=== PATIENT | male | born 1960 | race Caucasian/White ===

== ENCOUNTER 2016-11-22 22:57 | Inpatient (IN) | payer OTHER ==
[2016-11-22] MEDS ORDERED: SODIUM CHLORIDE 0.9% 1,000 ML IV ONE (23:08)
[2016-11-22] MEDS ORDERED: ACETAMINOPHEN IV (For NPO) 1,000 MG in SALINE 100 100ML.BAG IVPB STA (23:08)
[2016-11-22] MEDS ORDERED: IBUPROFEN IV 600 MG in SODIUM CHLORIDE 0.9% 250 ML IV STA (23:08)
--- NOTE | 2016-11-22 23:14 | ED ---
General Adult HPI - General Chief complaint: Seizure Stated complaint: transfer-seizure Time Seen by Provider: 11/22/16 23:00 Source: EMS, RN notes reviewed Mode of arrival: EMS Limitations: no limitations - History of Present Illness Initial comments: This is a 56-year-old male presents to the emergency department as a transfer from [facility]. Patient was in status epilepticus at [facility] he received 1000 of Dilantin and 4 mg of Ativan and according to the emergency department the patient did stop seizing. They did not inform me that the patient had a fever they did not give him anything for his fever they did not investigate the fever according to what was sent to me. Patient is still a little confused and doesn't know how even got to the hospital. He is of little help in the history. No family came with the patient. I asked the patient if he had any problems with a cough recently he said no he denied any vomiting or diarrhea he denies any dysuria. - Related Data Home Medications Medication Instructions Recorded Confirmed Unable To Assess [Unable to Assess] 11/22/16 11/22/16 Allergies Allergy/AdvReac Type Severity Reaction Status Date / Time codeine AdvReac Itching Verified 07/14/15 15:01 Review of Systems ROS Statement: Those systems with pertinent positive or pertinent negative responses have been documented in the HPI. ROS Other: All systems not noted in ROS Statement are negative. Past Medical History Past Medical History: Liver Disease, Seizure Disorder Additional Past Medical History / Comment(s): 12/02/14 Pt was admiited to [facility] on 12/01/14 but was unable to provide any reliable health hx. Chain [employer] contacted by ICU staff today and was able to contact pt's primary doctor for some health hx and also was able to speak now with pt. Pt presented to [facility] ER yesterday evening via EMS with altered mental status. Originally they were called for siezure but according to their records the pt was found with Alered mental status and did not appear post dictal. The EMS record also notes that a empty bottle of ambien was found near the pt. In ER pt's conversation made no sense. Pt tested positive for benzo's in the ER. Other HX: Pt's medical record from Dr. Mccartney's office state pt has liver failure, back pain anxiety and depression and tobacco abuse disorder, and that ptis not drinking as much as he was prev., L forearm laceration repair, arthiritis in back and arms. Pt states he started having seizures 1 1/2 months ago and last had a seizure on 12/01/14. He states he has these seizures pretty much daily. History of Any Multi-Drug Resistant Organisms: None Reported Past Surgical History: Unable to Obtain Additional Past Surgical History / Comment(s): Tooth extraction with anesthesia Past Anesthesia/Blood Transfusion Reactions: Unable to Obtain Additional Past Anesthesia/Blood Transfusion Reaction / Comment(s): Pt has never had surgery. Past Psychological History: Anxiety, Depression Additional Psychological History / Comment(s): Pt has hx of taking xanax for anxiety and ambien for insomnia. Pt lives with a very good friend named Elena. Pt is normally independent. Pt states he might have been a heavy drinker when he was a teenager. Smoking Status: Current every day smoker Past Alcohol Use History: None Reported Additional Past Alcohol Use History / Comment(s): Dr. Mccartney's medical record on pt state that at his 07/06/14 office visit the pt was not drinking as much as he was prev. Past Drug Use History: None Reported - Past Family History Mother Family Medical History: Cancer Additional Family Medical History / Comment(s): Mother is . She had lung cancer. General Exam - General Exam Comments Initial Comments: GENERAL: Patient is well-developed and well-nourished. Patient is nontoxic and well- hydrated and is in no acute distress. ENT: Neck is soft and supple. No significant lymphadenopathy is noted. Oropharynx is clear. Moist mucous membranes. Neck has full range of motion without eliciting any pain. EYES: The sclera were anicteric and conjunctiva were pink and moist. Extraocular movements were intact and pupils were equal round and reactive to light. Eyelids were unremarkable. PULMONARY: Unlabored respirations. Good breath sounds bilaterally. No audible rales rhonchi or wheezing was noted. CARDIOVASCULAR: There is a regular rate and rhythm without any murmurs gallops or rubs. ABDOMEN: Soft and nontender with normal bowel sounds. No palpable organomegaly was noted. There is no palpable pulsatile mass. SKIN: Skin is clear with no lesions or rashes and otherwise unremarkable. NEUROLOGIC: Patient is alert and oriented 1. According to EMS he was unable to even tell them his name he was able to tell me his first and last name but he stated he didn't know where he was. Cranial nerves II through XII are grossly intact. Motor and sensory are also intact. Normal speech, volume and content. Symmetrical smile. MUSCULOSKELETAL: Normal extremities with adequate strength and full range of motion. LYMPHATICS: No significant lymphadenopathy is noted PSYCHIATRIC: Normal psychiatric evaluation. Limitations: no limitations Course Vital Signs 11/22/16 11/23/16 23:08 01:32 Temperature 102.2 F H 101.5 F H Pulse Rate 91 87 Respiratory 18 18 Rate Blood Pressure 136/73 128/78 O2 Sat by Pulse 93 L 94 L Oximetry Medical Decision Making - Medical Decision Making Chest x-ray shows no acute abnormality - Lab Data Result diagrams: 11/22/16 23:29 11/22/16 23:29 Lab Results 11/22/16 11/22/16 11/22/16 Range/Units 23:29 23:29 23:29 WBC 6.7 (3.8-10.6) k/uL RBC 4.00 L (4.30-5.90) m/uL Hgb 13.7 (13.0-17.5) gm/dL Hct 39.9 (39.0-53.0) % MCV 99.6 (80.0-100.0) fL MCH 34.3 (25.0-35.0) pg MCHC 34.4 (31.0-37.0) g/dL RDW 13.9 (11.5-15.5) % Plt Count 158 (150-450) k/uL Neutrophils % 88 % Lymphocytes % 4 % Monocytes % 7 % Eosinophils % 0 % Basophils % 0 % Neutrophils # 5.9 (1.3-7.7) k/uL Lymphocytes # 0.3 L (1.0-4.8) k/uL Monocytes # 0.5 (0-1.0) k/uL Eosinophils # 0.0 (0-0.7) k/uL Basophils # 0.0 (0-0.2) k/uL Sodium 138 (137-145) mmol/L Potassium 3.6 (3.5-5.1) mmol/L Chloride 96 L (98-107) mmol/L Carbon Dioxide 29 (22-30) mmol/L Anion Gap 13 mmol/L BUN 14 (9-20) mg/dL Creatinine 0.60 L (0.66-1.25) mg/dL Est GFR (MDRD) Af Amer >60 (>60 ml/min/1.73 sqM) Est GFR (MDRD) Non-Af >60 (>60 ml/min/1.73 sqM) Glucose 135 H (74-99) mg/dL Plasma Lactic Acid Otis 2.1 H (0.7-2.0) mmol/L Calcium 8.8 (8.4-10.2) mg/dL Total Bilirubin 1.3 (0.2-1.3) mg/dL AST 131 H (17-59) U/L ALT 78 H (21-72) U/L Alkaline Phosphatase 145 H (38-126) U/L Total Protein 7.2 (6.3-8.2) g/dL Albumin 4.1 (3.5-5.0) g/dL Urine Color Urine Appearance (Clear) Urine pH (5.0-8.0) Ur Specific [place] (1.001-1.035) Urine Protein (Negative) Urine Glucose (UA) (Negative) Urine Ketones (Negative) Urine Blood (Negative) Urine Nitrate (Negative) Urine Bilirubin (Negative) Urine Urobilinogen (<2.0) mg/dL Ur Leukocyte Esterase (Negative) Urine RBC (0-5) /hpf Urine WBC (0-5) /hpf Urine Mucus (None) /hpf Influenza Type A RNA (Not Detectd) Influenza Type B (PCR) (Not Detectd) 11/22/16 11/23/16 Range/Units 23:44 01:21 WBC (3.8-10.6) k/uL RBC (4.30-5.90) m/uL Hgb (13.0-17.5) gm/dL Hct (39.0-53.0) % MCV (80.0-100.0) fL MCH (25.0-35.0) pg MCHC (31.0-37.0) g/dL RDW (11.5-15.5) % Plt Count (150-450) k/uL Neutrophils % % Lymphocytes % % Monocytes % % Eosinophils % % Basophils % % Neutrophils # (1.3-7.7) k/uL Lymphocytes # (1.0-4.8) k/uL Monocytes # (0-1.0) k/uL Eosinophils # (0-0.7) k/uL Basophils # (0-0.2) k/uL Sodium (137-145) mmol/L Potassium (3.5-5.1) mmol/L Chloride (98-107) mmol/L Carbon Dioxide (22-30) mmol/L Anion Gap mmol/L BUN (9-20) mg/dL Creatinine (0.66-1.25) mg/dL Est GFR (MDRD) Af Amer (>60 ml/min/1.73 sqM) Est GFR (MDRD) Non-Af (>60 ml/min/1.73 sqM) Glucose (74-99) mg/dL Plasma Lactic Acid Otis (0.7-2.0) mmol/L Calcium (8.4-10.2) mg/dL Total Bilirubin (0.2-1.3) mg/dL AST (17-59) U/L ALT (21-72) U/L Alkaline Phosphatase (38-126) U/L Total Protein (6.3-8.2) g/dL Albumin (3.5-5.0) g/dL Urine Color Yellow Urine Appearance Clear (Clear) Urine pH 8.0 (5.0-8.0) Ur Specific [place] 1.025 (1.001-1.035) Urine Protein 1+ H (Negative) Urine Glucose (UA) Negative (Negative) Urine Ketones 1+ H (Negative) Urine Blood Negative (Negative) Urine Nitrate Negative (Negative) Urine Bilirubin Negative (Negative) Urine Urobilinogen 6.0 (<2.0) mg/dL Ur Leukocyte Esterase Negative (Negative) Urine RBC 1 (0-5) /hpf Urine WBC 1 (0-5) /hpf Urine Mucus Rare H (None) /hpf Influenza Type A RNA Not Detected (Not Detectd) Influenza Type B (PCR) Not Detected (Not Detectd) Disposition Clinical Impression: Status epilepticus Disposition: ADMITTED IP TO THIS HOSP Referrals: Chas Aguero MD [Primary Care Provider] - 1-2 days Time of Disposition: 01:56
[2016-11-22 23:45] LABS: Basophils % (A) 0 %; CH 34.5; CHCM 34.8; Eosinophils % (A) 0 %; HCT 39.9 % (39.0-53.0); HDW 2.46; HGB 13.7 gm/dL (13.0-17.5); Luc # (Auto) 0.07; Luc % (Auto) 1; Lymphocytes # (A) 0.3 k/uL (1.0-4.8); Lymphocytes % (A) 4 %; MCH 34.3 pg (25.0-35.0); MCHC 34.4 g/dL (31.0-37.0); MCV 99.6 fL (80.0-100.0); Mean Platelet Volume 8.6; Monocytes # (A) 0.5 k/uL (0-1.0); Monocytes % (A) 7 %; Neutrophils # (A) 5.9 k/uL (1.3-7.7); Neutrophils % (A) 88 %; RDW 13.9 % (11.5-15.5); WBC 6.7 k/uL (3.8-10.6); WBC (Perox) 6.81
[2016-11-23 00:02] LABS: ALT 78 U/L (21-72); AST 131 U/L (17-59); Alkaline Phosphatase 145 U/L (38-126); Anion Gap 13 mmol/L; Blood Urea Nitrogen 14 mg/dL (9-20); Calcium 8.8 mg/dL (8.4-10.2); Carbon Dioxide 29 mmol/L (22-30); Chloride 96 mmol/L (98-107); Glucose 135 mg/dL (74-99); Non-African American GFR(MDRD) >60 (>60 ml/min/1.73 sqM); Potassium 3.6 mmol/L (3.5-5.1); Sodium 138 mmol/L (137-145); Total Bilirubin 1.3 mg/dL (0.2-1.3); Total Protein 7.2 g/dL (6.3-8.2)
--- NOTE | 2016-11-23 00:46 | XR ---
EXAM: XR Chest, 2 Views. CLINICAL HISTORY: Reason: Difficulty breathing TECHNIQUE: Frontal and lateral views of the chest. COMPARISON: 07/14/15 chest radiographs. FINDINGS: Lungs: Stable. No consolidation. Pleural spaces: Unremarkable. No pneumothorax. Heart: Unremarkable. No cardiomegaly. Mediastinum: Unremarkable. Bones: Unremarkable. No acute fracture. Slight leftward curvature may in part be positional. IMPRESSION: No new acute process is seen within the chest, or source of the patient's symptoms detected.
[2016-11-23 01:44] LABS: Appearance,Urine Clear (Clear); Bilirubin,Urine Negative (Negative); Glucose,Urine (UA) Negative (Negative); Ketones,Urine 1+ (Negative); Leukocyte Esterase,Urine Negative (Negative); Mucus,Urine Rare /hpf; Nitrite,Urine Negative (Negative); Particle Count 2056; Protein,Urine 1+ (Negative); RBC,Urine 1 /hpf (0-5); Specific Gravity,Urine 1.025 (1.001-1.035); UA Billing (MACRO vs. MICRO) MICRO; WBC,Urine 1 /hpf (0-5)
[2016-11-23] MEDS ORDERED: SODIUM CHLORIDE 0.9% 1,000 ML IV ONE (01:56)
[2016-11-23] MEDS: ACETAMINOPHEN TAB 325 MG TAB PO PRN ×2 (03:19→08:44)
[2016-11-23] MEDS ORDERED: PHENYTOIN SODIUM EXTENDED 100 MG CAP PO SCH (09:00)
--- NOTE | 2016-11-23 09:25 | P.GSCN ---
History of Present Illness Consult date: 11/23/16 Reason for Consult: Intractable nausea and vomiting History of present illness: Patient is a somewhat poor historian who presents to the hospital with complaints of intractable nausea and vomiting for the last 6 months. Says that he vomits 1-2 times daily. Occasional episodes of diarrhea as well. Describes mild upper abdominal discomfort. Denies alcohol or drug related use. He came to the hospital with fevers as high as 102.2. White blood cell count is normal. Liver enzymes are slightly elevated. Denies rectal bleeding or melena. No hematemesis. No prior endoscopy. No recent travel. No sick contacts. Lactic acid was elevated but normalized today. Abdominal ultrasound has been ordered. Chest x-ray was normal. Per the chart the patient probably does have a history of alcohol use and a history of liver abnormalities. Review of Systems The patient denies any acute changes in his vision or hearing, no dysphagia or odynophagia, no chest pain or shortness of breath, no dysuria or hematuria, no headache, no runny nose, no rectal bleeding or melena, no unexplained weight loss Past Medical History Past Medical History: Liver Disease, Seizure Disorder Additional Past Medical History / Comment(s): 12/02/14 Pt was admiited to [facility] on 12/01/14 but was unable to provide any reliable health hx. Program Director/[employer] contacted by ICU staff today and was able to contact pt's primary doctor for some health hx and also was able to speak now with pt. Pt presented to [facility] ER yesterday evening via EMS with altered mental status. [facility] but according to their records the pt was found with Alered mental status and did not appear post dictal. The EMS record also notes that a empty bottle of ambien was found near the pt. In ER pt's conversation made no sense. Pt tested positive for benzo's in the ER. Other HX: Pt's medical record from Dr. Mccartney's office state pt has liver failure, back pain anxiety and depression and tobacco abuse disorder, and that ptis not drinking as much as he was prev., L forearm laceration repair, arthiritis in back and arms. Pt states he started having seizures 1 1/2 months ago and last had a seizure on 12/01/14. He states he has these seizures pretty much daily. History of Any Multi-Drug Resistant Organisms: None Reported Past Surgical History: Unable to Obtain Additional Past Surgical History / Comment(s): Tooth extraction with anesthesia Past Anesthesia/Blood Transfusion Reactions: Unable to Obtain Additional Past Anesthesia/Blood Transfusion Reaction / Comm: Pt has never had surgery. Past Psychological History: Anxiety, Depression Additional Psychological History / Comment(s): Pt has hx of taking xanax for anxiety and ambien for insomnia. Pt lives with a very good friend named Elena. Pt is normally independent. Pt states he might have been a heavy drinker when he was a teenager. Smoking Status: Current every day smoker Past Alcohol Use History: None Reported Additional Past Alcohol Use History / Comment(s): Dr. Mccartney's medical record on pt state that at his 07/06/14 office visit the pt was not drinking as much as he was prev. Past Drug Use History: None Reported - Past Family History Mother Family Medical History: Cancer Additional Family Medical History / Comment(s): Mother is . She had lung cancer. Medications and Allergies Home Medications Medication Instructions Recorded Confirmed Type Unable To Assess [Unable to Assess] 11/22/16 11/22/16 History Allergies Allergy/AdvReac Type Severity Reaction Status Date / Time codeine AdvReac Itching Verified 07/14/15 15:01 Surgical - Exam Vital Signs Temp Pulse Resp BP Pulse Ox 102.2 F H 91 18 136/73 93 L 11/22/16 23:08 11/22/16 23:08 11/22/16 23:08 11/22/16 23:08 11/22/16 23:08 Physical exam: General: Unkempt appearing elderly male who appears older than his stated age HEENT: Normocephalic, sclerae nonicteric Abdomen: Mild upper abdominal tenderness Extremities: No edema Neuro: Alert and oriented Results - Labs 11/22/16 23:29 11/22/16 23:29 Abnormal Lab Results - Last 24 Hours (Table) 11/23/16 Range/Units 08:18 Plasma Lactic Acid Otis 0.6 L (0.7-2.0) mmol/L Assessment and Plan (1) Abdominal pain Narrative/Plan: Agree with abdominal ultrasound already ordered. We'll review that study. Based on that may consider CAT scan abdomen and pelvis. Check labs tomorrow. Status: Acute
--- NOTE | 2016-11-23 09:44 | US ---
EXAMINATION TYPE: US abdomen complete DATE OF EXAM: 11/23/2016 9:22 AM COMPARISON: 12/02/2014 CLINICAL HISTORY: 56-year-old male elevated LFTs. Intermittent N/V x 2 months. TECHNIQUE: Multiple sonographic images of the abdomen were obtained. FINDINGS: Liver Length: 19.7 cm Gallbladder Wall: 0.2 cm CBD: 0.4 cm Spleen: Unable to assess. Right Kidney: 11.3 x 4.6 x 5.6 cm Left Kidney: 11.2 x 5.4 x 5.3 cm Pancreas: obscured by overlying bowel gas Liver: enlarged at 19.7cm, heterogeneous, echogenic, and attenuating. This secondarily limits assess ment for focal lesion. Gallbladder: No abnormal gallbladder distention, wall thickening, pericholecystic fluid, or shadowin g calculi. Evidence for sonographic Major's sign: no CBD: visualized portions within normal limits, limited by overlying bowel gas Spleen: obscured by overlying bowel gas Right Kidney: No hydronephrosis. Left Kidney: visualized portions within normal limits without hydronephrosis, limited by rib shadowi ng and overlying bowel gas Upper IVC: Not well seen. Abd Aorta: visualized portions within normal limits, limited by overlying bowel gas IMPRESSION: 1. Hepatomegaly with marked heterogeneous and attenuating liver parenchyma. Findings suggest hepatic steatosis or other nonspecific hepatocellular disease. Correlate with LFTs, profile, and patient risk factors. The overall heterogeneity has increased from 12/02/2014. 2. Unable to assess the pancreas or spleen due to bowel gas shadowing.
[2016-11-23 10:26] LABS: Amylase <30 U/L (30-110)
[2016-11-23 12:38] LABS: Hemoglobin A1C 5.7 % (4.2-6.1)
--- NOTE | 2016-11-23 13:19 | P.CNNES ---
History of Present Illness Consult date: 11/23/16 Requesting physician: Chas Aguero Reason for Consult: Seizures History of Present Illness: Patient is a 56-year-old male who is being evaluated today 11/23/2016 by the neurology service per the request of Dr. Aguero for seizures. Patient is a poor historian most of history was obtained from staff, chart, and some from patient. Patient reportedly presented to [facility] in status epilepticus. Reportedly patient was given 1000 mg of Dilantin and 4 mg of Ativan and the patient did stop seizing. Patient was then placed on Dilantin 100 mg 3 times a day. Patient remains confused and does not know how he arrived at the hospital. Patient does complain of abdominal pain which has been going on for months. GI consult was obtained. During my interview, patient does state he was diagnosed with seizure disorder less than a year ago. Patient states he was on Dilantin at home and decided to take himself off the medication. Patient cannot give me a reason that he took himself off. I did confirm with patient pharmacy that he was taking Dilantin 200 mg twice a day in the home setting. Patient was febrile with the temperature of 102.2 on admission. Blood pressure 136/73, pulse 91, and respiratory rate 18. Although patient was febrile WBCs were 6.7, hemoglobin 13.7, hematocrit 39.9. Liver enzymes were elevated as well. At the time of my evaluation, patient's resting comfortably in bed and appears to be in no acute distress. No seizures have been reported since admission. Review of Systems REVIEW OF SYSTEMS: Otherwise unremarkable and noncontributory. Past Medical History Past Medical History: Liver Disease, Seizure Disorder Additional Past Medical History / Comment(s): 12/02/14 Pt was admiited to [facility] on 12/01/14 but was unable to provide any reliable health hx. [employer] contacted by ICU staff today and was able to contact pt's primary doctor for some health hx and also was able to speak now with pt. Pt presented to [facility] ER yesterday evening via EMS with altered mental status. Originally they were called for siezure but according to their records the pt was found with Alered mental status and did not appear post dictal. The EMS record also notes that a empty bottle of ambien was found near the pt. In ER pt's conversation made no sense. Pt tested positive for benzo's in the ER. Other HX: Pt's medical record from Dr. Mccartney's office state pt has liver failure, back pain anxiety and depression and tobacco abuse disorder, and that ptis not drinking as much as he was prev., L forearm laceration repair, arthiritis in back and arms. Pt states he started having seizures 1 1/2 months ago and last had a seizure on 12/01/14. He states he has these seizures pretty much daily. History of Any Multi-Drug Resistant Organisms: None Reported Past Surgical History: Unable to Obtain Additional Past Surgical History / Comment(s): Tooth extraction with anesthesia Past Anesthesia/Blood Transfusion Reactions: Unable to Obtain Additional Past Anesthesia/Blood Transfusion Reaction / Comment(s): Pt has never had surgery. Past Psychological History: Anxiety, Depression Additional Psychological History / Comment(s): Pt has hx of taking xanax for anxiety and ambien for insomnia. Pt lives with a very good friend named Elena. Pt is normally independent. Pt states he might have been a heavy drinker when he was a teenager. Smoking Status: Current every day smoker Past Alcohol Use History: None Reported Additional Past Alcohol Use History / Comment(s): Dr. Mccartney's medical record on pt state that at his 07/06/14 office visit the pt was not drinking as much as he was prev. Past Drug Use History: None Reported - Past Family History Mother Family Medical History: Cancer Additional Family Medical History / Comment(s): Mother is . She had lung cancer. Medications and Allergies Home Medications Medication Instructions Recorded Confirmed Type No Known Home Medications [No 11/23/16 11/23/16 History Known Home Medications] Allergies Allergy/AdvReac Type Severity Reaction Status Date / Time codeine AdvReac Itching Verified 11/23/16 11:05 Physical Examination - Vital Signs Vital Signs: Vital Signs Temp Pulse Pulse Resp BP Pulse Ox 11/23/16 07:00 100.7 F H 83 16 117/67 92 L 11/23/16 04:08 99.4 F 11/23/16 03:12 100.8 F H 86 18 128/94 93 L 11/23/16 02:08 100.7 F H Intake and Output 11/22/16 11/23/16 11/23/16 22:59 06:59 14:59 Intake Total 1600 Balance 1600 Intake: Amount of Fluid Infused ( 1600 ml) Other: Voiding Method Urinal Urinal # Voids 1 1 # Bowel Movements 1 1 PHYSICAL EXAM: GENERAL APPEARANCE: Patient is a well-developed, male who appears to be in no acute distress. HEENT: Normocephalic, atraumatic, no facial asymmetry is seen. Neck is supple with no masses felt. CARDIOVASCULAR: Regular rate and rhythm. ABDOMEN: Nontender, nondistended. EXTREMITIES: Show no edema or clubbing. NEUROLOGICAL EXAM: Patient is awake, alert, and oriented 3. Speech and language are normal. Strength is full in all 4 extremities. Sensory exam to light touch is normal in all 4 extremities. No tremors or seizure-like activity is noted. Results - Laboratory Findings CBC and BMP: 11/22/16 23:29 11/22/16 23:29 Abnormal Lab Findings: Abnormal Labs 11/23/16 11/23/16 08:18 08:18 Plasma Lactic Acid Otis 0.6 L Amylase <30 L Assessment and Plan (1) Abdominal pain Status: Acute (2) Status epilepticus Status: Acute Plan: Impression: 1. Seizure disorder 2. Abdominal pain 3. Reported history of alcohol abuse 4. Noncompliant with medication Recommendations: It appears patient was recently diagnosed with seizure disorder. Patient believes last seizure was approximately a year ago. Patient had been taking Dilantin the home setting and decided to take himself off. I will place him back on last ordered Dilantin dose which was confirmed with his pharmacy. Patient will be started on Dilantin 200 mg twice a day. I will order an EEG. I will update a CT of the brain. Continue seizure precautions. Continue neurological checks. Continue current medical management. Patient was advised that under state law he cannot drive for a period of 6 months following seizure. I will continue to follow with you. Further recommendations to follow. Thank you for allowing me to participate in the care of your patient. Feel free to call with any questions or concerns. I performed an examination of the patient and discussed the management with the SURGERY TEACHER. I have reviewed the SURGERY TEACHER notes and agree with the findings and plan of care.
--- NOTE | 2016-11-23 14:08 | CT ---
EXAMINATION TYPE: CT brain wo con DATE OF EXAM: 11/23/2016 1:51 PM COMPARISON: 07/14/2015 HISTORY: 56-year-old male complains of seizure yesterday and some dizziness today. TECHNIQUE: Examination was done in axial plane without intravenous contrast. Coronal and sagittal r econstructions performed. CT DLP: 1061 mGycm Automated exposure control for dose reduction was used. FINDINGS: There is no evidence of acute intracranial hemorrhage, acute ischemic changes, mass, mass-effect, or extra-axial fluid collection. There is no effacement of cerebral sulci or basal subarachnoid cister ns. There is no hydrocephalus. There is no midline shift. Mcgrath-white matter distinction is preserv ed. Paranasal sinuses and mastoid air cells are well pneumatized. Orbits and globes are intact. IMPRESSION: No acute intracranial abnormality seen.
--- NOTE | 2016-11-23 17:07 | P.CONS ---
History of Present Illness - Reason for Consult Consult date: 11/23/16 - Chief Complaint Seizure - History of Present Illness 56-year-old male who presents to [facility] is an outside transfer due to his seizures and concerns to status epilepticus. He was loaded with Dilantin and Ativan. In that had improvement. Upon approach the patient is not actively seizing. He however is a poor historian. Apparently he was having some difficulties with abdominal pain. It may not been taking his medications at home. It admission he did have difficulty with fever with at the infectious diseases consultation is requested. There was evidence of elevated liver function tests also. Upon questioning the patient does not have many complaints at this point in time. But again he is a poor historian. Review of Systems ROS unobtainable: due to mental status (But currently denies headache, denies shortness of breath or cough, has had some abdominal pain and denies nausea or emesis or diarrhea.) Past Medical History Past Medical History: Liver Disease, Seizure Disorder Additional Past Medical History / Comment(s): 12/02/14 Pt was admiited to [facility] on 12/01/14 but was unable to provide any reliable health hx. Anthropometrist contacted by ICU staff today and was able to contact pt's primary doctor for some health hx and also was able to speak now with pt. Pt presented to [facility] ER yesterday evening via EMS with altered mental status. Originally they were called for siezure but according to their records the pt was found with Alered mental status and did not appear post dictal. The EMS record also notes that a empty bottle of ambien was found near the pt. In ER pt's conversation made no sense. Pt tested positive for benzo's in the ER. Other HX: Pt's medical record from Dr. Mccartney's office state pt has liver failure, back pain anxiety and depression and tobacco abuse disorder, and that ptis not drinking as much as he was prev., L forearm laceration repair, arthiritis in back and arms. Pt states he started having seizures 1 1/2 months ago and last had a seizure on 12/01/14. He states he has these seizures pretty much daily. History of Any Multi-Drug Resistant Organisms: None Reported Past Surgical History: Unable to Obtain Additional Past Surgical History / Comment(s): Tooth extraction with anesthesia Past Anesthesia/Blood Transfusion Reactions: Unable to Obtain Additional Past Anesthesia/Blood Transfusion Reaction / Comm: Pt has never had surgery. Past Psychological History: Anxiety, Depression Additional Psychological History / Comment(s): Pt has hx of taking xanax for anxiety and ambien for insomnia. Pt lives with a very good friend named Elena. Pt is normally independent. Pt states he might have been a heavy drinker when he was a teenager. Positive tobacco use. Did not relate to current recreational drug use. No experience. Does not work outside of the home. Did not confirm animal exposures Smoking Status: Current every day smoker Past Alcohol Use History: None Reported Additional Past Alcohol Use History / Comment(s): Dr. Mccartney's medical record on pt state that at his 07/06/14 office visit the pt was not drinking as much as he was prev. Past Drug Use History: None Reported - Past Family History Mother Family Medical History: Cancer Additional Family Medical History / Comment(s): Mother is . She had lung cancer. Medications and Allergies Home Medications and Allergies Comment(s): Current Medications Acetaminophen (Tylenol Tab) 650 mg PO Q6HR PRN PRN Reason: Fever and/ or Pain Last Admin: 11/23/16 08:44 Dose: 650 mg Phenytoin Sodium (Dilantin) 200 mg PO BID EMILIE Home Medications Medication Instructions Recorded Confirmed Type No Known Home Medications [No 11/23/16 11/23/16 History Known Home Medications] Allergies Allergy/AdvReac Type Severity Reaction Status Date / Time codeine AdvReac Itching Verified 11/23/16 11:05 Physical Exam Vitals: Vital Signs Temp Pulse Pulse Resp BP Pulse Ox 11/23/16 15:00 99.8 F H 69 16 120/83 94 L 11/23/16 07:00 100.7 F H 83 16 117/67 92 L 11/23/16 04:08 99.4 F 11/23/16 03:12 100.8 F H 86 18 128/94 93 L 11/23/16 02:08 100.7 F H Intake and Output 11/23/16 11/23/16 11/23/16 06:59 14:59 22:59 Intake Total 1600 Balance 1600 Intake: Amount of Fluid Infused ( 1600 ml) Other: Voiding Method Urinal Urinal Urinal # Voids 1 2 # Bowel Movements 1 3 56-year-old male appears about his stated age. Thin build. Temperature 102.2 at admission. HEENT: Anicteric conjunctiva are pink and moist nasal mucosa grossly intact without significant lesions, there is no thrush. Poor dentition Neck: The neck is supple without significant lymphadenopathy or thyromegaly. Lungs: Symmetrical air entry with expiratory wheezes but no anyi bronchial sounds Heart: Regular rate and rhythm with an audible S1-S2, no S3 no S4. There is no significant murmur click or rub, PMI was nondisplaced. Abdomen: Positive bowel sounds soft and nontender without palpable masses or organomegaly. There was no guarding or rebound. Extremities: The upper extremities have excellent pulses they are symmetric, no significant petechiae or telangiectasia. No splinter hemorrhages were noted. The lower extremities are free from significant edema. The peripheral pulses were 2+ and symmetric. Neuro: Awake alert oriented to person and place. Followed simple commands. The upper and lower extremities on command. Results CBC & Chem 7: 11/22/16 23:29 11/22/16 23: Labs: Abnormal Lab Results - Last 24 Hours (Table) 11/23/16 11/23/16 Range/Units 08:18 08:18 Plasma Lactic Acid Otis 0.6 L (0.7-2.0) mmol/L Amylase <30 L (30-110) U/L Laboratory Results WBC 6.7 k/uL (3.8-10.6) 11/22/16: RBC 4.00 m/uL (4.30-5.90) L 11/22/16: Hgb 13.7 gm/dL (13.0-17.5) 11/22/16 23: Hct 39.9 % (39.0-53.0) 11/22/16 23: MCV 99.6 fL (80.0-100.0) 11/22/16: MCH 34.3 pg (25.0-35.0) 11/22/16: MCHC 34.4 g/dL (31.0-37.0) 11/22/16 23: RDW 13.9 % (11.5-15.5) 11/22/16: Plt Count 158 k/uL (150-450) 11/22/16 23:29 Neutrophils % 88 % 11/22/16 23: Lymphocytes % 4 % 11/22/16 23: Monocytes % 7 % 11/22/16 23: Eosinophils % 0 % 11/22/16 23: Basophils % 0 % 11/22/16 23:29 Neutrophils # 5.9 k/uL (1.3-7.7) 11/22/16 23: Lymphocytes # 0.3 k/uL (1.0-4.8) L 11/22/16 23: Monocytes # 0.5 k/uL (0-1.0) 11/22/16 23: Eosinophils # 0.0 k/uL (0-0.7) 11/22/16: Basophils # 0.0 k/uL (0-0.2) 11/22/16 23: Sodium 138 mmol/L (137-145) 11/22/16 23: Potassium 3.6 mmol/L (3.5-5.1) 11/22/16 23: Chloride 96 mmol/L (98-107) L 11/22/16 23: Carbon Dioxide 29 mmol/L (22-30) 11/22/16 23:29 Anion Gap 13 mmol/L 11/22/16 23:29 BUN 14 mg/dL (9-20) 11/22/16 23: Creatinine 0.60 mg/dL (0.66-1.25) L 11/22/16 23:29 Est GFR (MDRD) Af Amer >60 (>60 ml/min/1.73 sqM) 11/22/16 23:29 Est GFR (MDRD) Non-Af >60 (>60 ml/min/1.73 sqM) 11/22/16 23:29 Glucose 135 mg/dL (74-99) H 11/22/16 23:[address] Glu mg/dL 117 mg/dL 11/23/16 08:18 Hemoglobin A1c 5.7 % (4.2-6.1) 11/23/16 08:18 Plasma Lactic Acid Otis 0.6 mmol/L (0.7-2.0) L 11/23/16 08:18 Calcium 8.8 mg/dL (8.4-10.2) 11/22/16 23:29 Total Bilirubin 1.3 mg/dL (0.2-1.3) 11/22/16 23:29 AST 131 U/L (17-59) H 11/22/16 23:29 ALT 78 U/L (21-72) H 11/22/16 23:29 Alkaline Phosphatase 145 U/L (38-126) H 11/22/16 23:29 Total Protein 7.2 g/dL (6.3-8.2) 11/22/16 23:29 Albumin 4.1 g/dL (3.5-5.0) 11/22/16 23:29 Amylase <30 U/L (30-110) L 11/23/16 08:18 Lipase 116 U/L (23-300) 11/23/16 08:18 Urine Color Yellow 11/23/16 01:21 Urine Appearance Clear (Clear) 11/23/16 01:21 Urine pH 8.0 (5.0-8.0) 11/23/16 01:21 Ur Specific [place] 1.025 (1.001-1.035) 11/23/16 01:21 Urine Protein 1+ (Negative) H 11/23/16 01:21 Urine Glucose (UA) Negative (Negative) 11/23/16 01:21 Urine Ketones 1+ (Negative) H 11/23/16 01:21 Urine Blood Negative (Negative) 11/23/16 01:21 Urine Nitrate Negative (Negative) 11/23/16 01:21 Urine Bilirubin Negative (Negative) 11/23/16 01:21 Urine Urobilinogen 6.0 mg/dL (<2.0) 11/23/16 01:21 Ur Leukocyte Esterase Negative (Negative) 11/23/16 01:21 Urine RBC 1 /hpf (0-5) 11/23/16 01:21 Urine WBC 1 /hpf (0-5) 11/23/16 01:21 Urine Mucus Rare /hpf (None) H 11/23/16 01:21 Influenza Type A RNA Not Detected (Not Detectd) 11/22/16 23:44 Influenza Type B (PCR) Not Detected (Not Detectd) 11/22/16 23:44 Assessment and Plan (1) Fever Narrative/Plan: 56-year-old male with a history of a seizure disorder. Potential alcohol abuse presents to our facility with evidence of seizure. This is no undercontrol with loading of Dilantin and some Ativan. The patient does have a fever that has now resolved. Fever is not an unusual manifestation of seizure. Patient has been seen by surgery because of complaints of abdominal pain. The patient does have evidence of an abnormal liver on his ultrasound. He has changed further since his November 2014 exam. Surgical evaluation is a curb with no plans for surgical intervention. We'll obtain baseline hepatitis status. At this time does not appear to have underlying infection that is bacterial in nature and would not need antibiotic therapy If he has further fever then further workup will be initiated at that time. Follow-up liver function tests are requested. Status: Acute (2) Seizure Status: Acute
[2016-11-23] MEDS ORDERED: LOPERAMIDE 2 MG CAP PO PRN (19:46)
[2016-11-23] MEDS: PHENYTOIN SODIUM EXTENDED 100 MG CAP PO SCH (20:11)
[2016-11-23] MEDS: LORazepam 2 MG/ML SYRINGE IV PRN (20:38)
[2016-11-23 20:43] LABS: Hepatitis B Surface Ag Index 0.06
[2016-11-23 20:48] LABS: Hepatitis B Core IgM Index 0.04
[2016-11-23 21:00] LABS: Hepatitis C Virus IgG Index 0.01
[2016-11-23 21:02] LABS: Hepatitis C Virus IgG Ab Negative (Negative)
[2016-11-24] MEDS: LORazepam 2 MG/ML SYRINGE IV PRN ×2 (03:21→08:16)
[2016-11-24 07:51] LABS: Basophils % (A) 0 %; CH 35.1; CHCM 34.9; Eosinophils # (A) 0.2 k/uL (0-0.7); Eosinophils % (A) 4 %; HCT 39.4 % (39.0-53.0); HDW 2.61; HGB 13.7 gm/dL (13.0-17.5); Luc # (Auto) 0.22; Luc % (Auto) 4; Lymphocytes # (A) 1.3 k/uL (1.0-4.8); Lymphocytes % (A) 21 %; MCH 35.1 pg (25.0-35.0); MCHC 34.7 g/dL (31.0-37.0); MCV 101.1 fL (80.0-100.0); Macrocytosis Slight; Mean Platelet Volume 8.9; Monocytes # (A) 0.5 k/uL (0-1.0); Monocytes % (A) 8 %; Neutrophils # (A) 3.8 k/uL (1.3-7.7); Neutrophils % (A) 63 %; RDW 13.5 % (11.5-15.5); WBC (Perox) 5.96
[2016-11-24 08:02] LABS: ALT 97 U/L (21-72); AST 194 U/L (17-59); Alkaline Phosphatase 146 U/L (38-126); Anion Gap 14 mmol/L; Blood Urea Nitrogen 12 mg/dL (9-20); Calcium 9.3 mg/dL (8.4-10.2); Carbon Dioxide 25 mmol/L (22-30); Chloride 98 mmol/L (98-107); Glucose 120 mg/dL (74-99); Non-African American GFR(MDRD) >60 (>60 ml/min/1.73 sqM); Potassium 3.3 mmol/L (3.5-5.1); Sodium 137 mmol/L (137-145); Total Bilirubin 1.2 mg/dL (0.2-1.3); Total Protein 7.2 g/dL (6.3-8.2)
[2016-11-24] MEDS: PHENYTOIN SODIUM EXTENDED 100 MG CAP PO SCH ×2 (08:17→21:01)
[2016-11-24] MEDS ORDERED: LORazepam 2 MG/ML SYRINGE IV PRN ×3 (10:17)
[2016-11-24] MEDS ORDERED: THIAMINE 100 MG/ML 2 ML VIAL IM STA (10:17)
[2016-11-24] MEDS ORDERED: RX INFO: IV CONTRAST WAS GIVEN 1 EACH MISC MISCELLANE PRN (10:27)
--- NOTE | 2016-11-24 10:29 | P.PN ---
Subjective Principal diagnosis: Abdominal pain Patient had low-grade fever last night 99.2. Liver enzymes remain slightly elevated. White blood cell count normal. Ultrasound shows no gallbladder disease. Still having loose stools and occasional vomiting. Objective - Vital Signs Vital signs: Vital Signs Temp 98.7 F 11/24/16 07:00 Pulse 72 11/24/16 07:00 Resp 16 11/24/16 07:00 BP 149/88 11/24/16 07:00 Pulse Ox 96 11/24/16 07:00 Intake & Output 11/23/16 11/24/16 11/24/16 18:59 06:59 18:59 Other: Voiding Method Urinal Urinal Urinal # Voids 2 2 # Bowel Movements 3 3 - Exam Abdomen: Soft, nondistended, mild upper abdominal tenderness - Labs CBC & Chem 7: 11/24/16 07:17 11/24/16 07:17 Labs: Abnormal Lab Results - Last 24 Hours (Table) 11/24/16 11/24/16 Range/Units 07:17 07:17 RBC 3.90 L (4.30-5.90) m/uL MCV 101.1 H (80.0-100.0) fL MCH 35.1 H (25.0-35.0) pg Potassium 3.3 L (3.5-5.1) mmol/L Glucose 120 H (74-99) mg/dL AST 194 H (17-59) U/L ALT 97 H (21-72) U/L Alkaline Phosphatase 146 H (38-126) U/L Assessment and Plan (1) Abdominal pain Narrative/Plan: Ultrasound reviewed. Will check CT abdomen and pelvis. Follow lab work. Status: Acute
[2016-11-24] MEDS: IOHEXOL 350 MG/ML 25 ML BOTTLE (ORAL USE) PO PRN ×2 (10:45→11:40)
--- NOTE | 2016-11-24 12:21 | P.PN ---
Subjective Principal diagnosis: Patient is a pleasant 56-year-old male who is being followed by the neurology service for seizures. Patient is a poor historian and information has been obtained from staff, chart, and some from patient. Reportedly patient had seizure activity and was taken to another facility and stabilized. Patient was then transferred here for further medical management. Patient also has history of abdominal pain with frequent nausea and vomiting. GIs been consulted. Patient presented with fever and infectious disease has also been consulted. Reportedly, patient has history of alcohol abuse. Patient is more confused and somewhat agitated and combative today. No seizure activity since admission. Patient continues on Dilantin 200 mg twice a day. EEG has not been done yet. At the time of my evaluation, patient is agitated and staff reports patient has been placed on withdrawal protocol. Objective - Vital Signs Vital signs: Vital Signs Temp 98.7 F 11/24/16 07:00 Pulse 72 11/24/16 07:00 Resp 16 11/24/16 07:00 BP 149/88 11/24/16 07:00 Pulse Ox 96 11/24/16 07:00 Intake & Output 11/23/16 11/24/16 11/24/16 18:59 06:59 18:59 Other: Voiding Method Urinal Urinal Urinal # Voids 2 2 # Bowel Movements 3 3 - Exam PHYSICAL EXAM: GENERAL APPEARANCE: Patient is a well-developed, male who appears to be in no acute distress. HEENT: Normocephalic, atraumatic, no facial asymmetry is seen. Neck is supple with no masses felt. CARDIOVASCULAR: Regular rate and rhythm. ABDOMEN: Nontender, nondistended. EXTREMITIES: Show no edema or clubbing. NEUROLOGICAL EXAM: Patient is awake, alert, and oriented 3. Speech and language are normal. Strength is full in all 4 extremities. Sensory exam to light touch is normal in all 4 extremities. No facial asymmetry is seen on cranial nerve testing. No tremors or seizure-like activity is noted. - Labs CBC & Chem 7: 11/24/16 07:11/24/16 07:17 Labs: Abnormal Lab Results - Last 24 Hours (Table) 11/24/16 11/24/16 Range/Units : 07:17 RBC 3.90 L (4.30-5.90) m/uL MCV 101.1 H (80.0-100.0) fL MCH 35.1 H (25.0-35.0) pg Potassium 3.3 L (3.5-5.1) mmol/L Glucose 120 H (74-99) mg/dL AST 194 H (17-59) U/L ALT 97 H (21-72) U/L Alkaline Phosphatase 146 H (38-126) U/L Assessment and Plan (1) Abdominal pain Status: Acute (2) Status epilepticus Status: Acute Plan: Impression: 1. Seizure disorder 2. Abdominal pain 3. Reported history of alcohol abuse 4. Noncompliant with medication Recommendations: It appears patient was recently diagnosed with seizure disorder. Patient believes last seizure was approximately a year ago. Patient had been taking Dilantin the home setting and decided to take himself off. I will place him back on last ordered Dilantin dose which was confirmed with his pharmacy. Patient will be started on Dilantin 200 mg twice a day. I had ordered an EEG which has not been done yet. CT of the brain was done and showed no acute abnormalities. Continue seizure precautions. Continue neurological checks. Continue current medical management. Patient was advised that under state law he cannot drive for a period of 6 months following seizure. I will continue to follow with you. Further recommendations to follow. I performed an examination of the patient and discussed the management with the DAIRY TECHNOLOGIST. I have reviewed the DAIRY TECHNOLOGIST notes and agree with the findings and plan of care.
[2016-11-24] MEDS: NICOTINE 14MG/24HR PATCH TRANSDERM SCH (13:25)
--- NOTE | 2016-11-24 13:43 | P.PN ---
Subjective Principal diagnosis: Seizure 56-year-old male who presents to [facility] is an outside transfer due to his seizures and concerns to status epilepticus. He was loaded with Dilantin and Ativan. In that had improvement. Upon approach the patient is not actively seizing. He however is a poor historian. Apparently he was having some difficulties with abdominal pain. It may not been taking his medications at home. It admission he did have difficulty with fever with at the infectious diseases consultation is requested. There was evidence of elevated liver function tests also. Upon questioning the patient does not have many complaints at this point in time. But again he is a poor historian. Certainly more comfortable today. Objective - Vital Signs Vital signs: Vital Signs Temp 98.7 F 11/24/16 07:00 Pulse 72 11/24/16 07:00 Resp 16 11/24/16 07:00 BP 149/88 11/24/16 07:00 Pulse Ox 96 11/24/16 07:00 Intake & Output 11/23/16 11/24/16 11/24/16 18:59 06:59 18:59 Other: Voiding Method Urinal Urinal Urinal # Voids 2 2 # Bowel Movements 3 3 - Exam 56-year-old male appears about his stated age. Thin build. Temperature 102.2 at admission. HEENT: Anicteric conjunctiva are pink and moist nasal mucosa grossly intact without significant lesions, there is no thrush. Poor dentition Neck: The neck is supple without significant lymphadenopathy or thyromegaly. Lungs: Symmetrical air entry with expiratory wheezes but no anyi bronchial sounds Heart: Regular rate and rhythm with an audible S1-S2, no S3 no S4. There is no significant murmur click or rub, PMI was nondisplaced. Abdomen: Positive bowel sounds soft and nontender without palpable masses or organomegaly. There was no guarding or rebound. Extremities: The upper extremities have excellent pulses they are symmetric, no significant petechiae or telangiectasia. No splinter hemorrhages were noted. The lower extremities are free from significant edema. The peripheral pulses were 2+ and symmetric. Neuro: Awake alert oriented to person and place. Followed simple commands. The upper and lower extremities on command. - Labs CBC & Chem 7: 11/24/16 07:17 11/24/16 07:17 Labs: Abnormal Lab Results - Last 24 Hours (Table) 11/24/16 11/24/16 Range/Units 07: 07:17 RBC 3.90 L (4.30-5.90) m/uL MCV 101.1 H (80.0-100.0) fL MCH 35.1 H (25.0-35.0) pg Potassium 3.3 L (3.5-5.1) mmol/L Glucose 120 H (74-99) mg/dL AST 194 H (17-59) U/L ALT 97 H (21-72) U/L Alkaline Phosphatase 146 H (38-126) U/L Laboratory Results WBC 6.0 k/uL (3.8-10.6) 11/24/16 07: RBC 3.90 m/uL (4.30-5.90) L 11/24/16 07: Hgb 13.7 gm/dL (13.0-17.5) 11/24/16 07: Hct 39.4 % (39.0-53.0) 11/24/16 07:17 MCV 101.1 fL (80.0-100.0) H 11/24/16 07:17 MCH 35.1 pg (25.0-35.0) H 11/24/16 07: MCHC 34.7 g/dL (31.0-37.0) 11/24/16 07: RDW 13.5 % (11.5-15.5) 11/24/16 07: Plt Count 183 k/uL (150-450) 11/24/16 07: Neutrophils % 63 % 11/24/16 07: Lymphocytes % 21 % 11/24/16 07:17 Monocytes % 8 % 11/24/16 07:17 Eosinophils % 4 % 11/24/16 07: Basophils % 0 % 11/24/16 07: Neutrophils # 3.8 k/uL (1.3-7.7) 11/24/16 07: Lymphocytes # 1.3 k/uL (1.0-4.8) 11/24/16 07: Monocytes # 0.5 k/uL (0-1.0) 11/24/16 07: Eosinophils # 0.2 k/uL (0-0.7) 11/24/16 07:17 Basophils # 0.0 k/uL (0-0.2) 11/24/16 07:17 Macrocytosis Slight 11/24/16 07:17 Sodium 137 mmol/L (137-145) 11/24/16 07:17 Potassium 3.3 mmol/L (3.5-5.1) L 11/24/16 07:17 Chloride 98 mmol/L (98-107) 11/24/16 07:17 Carbon Dioxide 25 mmol/L (22-30) 11/24/16 07:17 Anion Gap 14 mmol/L 11/24/16 07:17 BUN 12 mg/dL (9-20) 11/24/16 07:17 Creatinine 0.72 mg/dL (0.66-1.25) 11/24/16 07:17 Est GFR (MDRD) Af Amer >60 (>60 ml/min/1.73 sqM) 11/24/16 07:17 Est GFR (MDRD) Non-Af >60 (>60 ml/min/1.73 sqM) 11/24/16 07:17 Glucose 120 mg/dL (74-99) H 11/24/16 07:[address] Glu mg/dL 117 mg/dL 11/23/16 08:18 Hemoglobin A1c 5.7 % (4.2-6.1) 11/23/16 08:18 Plasma Lactic Acid Otis 0.6 mmol/L (0.7-2.0) L 11/23/16 08:18 Calcium 9.3 mg/dL (8.4-10.2) 11/24/16 07:17 Total Bilirubin 1.2 mg/dL (0.2-1.3) 11/24/16 07:17 AST 194 U/L (17-59) H 11/24/16 07:17 ALT 97 U/L (21-72) H 11/24/16 07:17 Alkaline Phosphatase 146 U/L (38-126) H 11/24/16 07:17 Ammonia <9 umol/L (<30) 11/24/16 10:29 Total Protein 7.2 g/dL (6.3-8.2) 11/24/16 07:17 Albumin 4.0 g/dL (3.5-5.0) 11/24/16 07:17 Amylase <30 U/L (30-110) L 11/23/16 08:18 Lipase 116 U/L (23-300) 11/23/16 08:18 Urine Color Yellow 11/23/16 01:21 Urine Appearance Clear (Clear) 11/23/16 01:21 Urine pH 8.0 (5.0-8.0) 11/23/16 01:21 Ur Specific [place] 1.025 (1.001-1.035) 11/23/16 01:21 Urine Protein 1+ (Negative) H 11/23/16 01:21 Urine Glucose (UA) Negative (Negative) 11/23/16 01:21 Urine Ketones 1+ (Negative) H 11/23/16 01:21 Urine Blood Negative (Negative) 11/23/16 01:21 Urine Nitrate Negative (Negative) 11/23/16 01:21 Urine Bilirubin Negative (Negative) 11/23/16 01:21 Urine Urobilinogen 6.0 mg/dL (<2.0) 11/23/16 01:21 Ur Leukocyte Esterase Negative (Negative) 11/23/16 01:21 Urine RBC 1 /hpf (0-5) 11/23/16 01:21 Urine WBC 1 /hpf (0-5) 11/23/16 01:21 Urine Mucus Rare /hpf (None) H 11/23/16 01:21 C. difficile (EIA) Intrp Negative (Negative) 11/23/16 18:13 Hepatitis A IgM Ab NEGATIVE 11/23/16 08:18 Hep Bs Antigen Negative 11/23/16 08:18 Hep B Core IgM Ab NEGATIVE 11/23/16 08:18 Hep C IgG Ab Negative (Negative) 11/23/16 08:18 Influenza Type A RNA Not Detected (Not Detectd) 11/22/16 23:44 Influenza Type B (PCR) Not Detected (Not Detectd) 11/22/16 23:44 Assessment and Plan (1) Fever Narrative/Plan: 56-year-old male with a history of a seizure disorder. Potential alcohol abuse presents to our facility with evidence of seizure. This is no undercontrol with loading of Dilantin and some Ativan. The patient does have a fever that has now resolved. Fever is not an unusual manifestation of seizure. Patient has been seen by surgery because of complaints of abdominal pain. The patient does have evidence of an abnormal liver on his ultrasound. He has changed further since his November 2014 exam. Surgical evaluation is a curb with no plans for surgical intervention. We'll obtain baseline hepatitis status. At this time does not appear to have underlying infection that is bacterial in nature and would not need antibiotic therapy If he has further fever then further workup will be initiated at that time. Follow-up liver function tests are requested. Status: Acute (2) Seizure Status: Acute
--- NOTE | 2016-11-24 13:53 | CONS ---
DATE OF CONSULTATION: REASON FOR CONSULTATION: Altered mental status. HISTORY OF PRESENT ILLNESS: Patient is 56, single, male, who has been living with his girlfriend of 10 years, presented to the emergency department as a transfer from [facility] with status epilepticus. Patient did receive 1000 of Dilantin and 4 mg of Ativan at [facility] prior to his arrival to the emergency department and it seems that it did control his seizures. I did review the medical record and I interviewed the patient who was very vague guarded, agitated. However, he stated that he has history of mental since age 17. At that time he did cut his forearm and did required more than 20 stitches and was hospitalized in [facility]. Since then he has been seeing different outpatient psychiatrist, but he said, "The only medication that is helping me is Xanax 2 mg 2 or 3 times a day." When I did ask him more about the past, it seems that he has extensive history of mood swings especially a lot of anger outbursts, poor impulse control, and as he said, "I just get agitated very easily, especially if no one will give me whatever I want". Patient start asking me for pain medication and for Xanax, started saying, "When I stop this medication I start having seizures". I tried to ask him if he ever had seizure without stopping opium or especially the benzodiazepine and he gets very defensive and angry and kept saying, "I just want you to give me Xanax." Today, he denied any symptoms of depression, but he stated that he has high anxiety, and he is not willing to try anything except Xanax and as I mentioned he stated that he has anger problem. PAST PSYCHIATRIC HISTORY: According to him, one previous admission at age 17 after he did cut his forearm at [facility]. He stated that they diagnosed him with depression, anxiety and when I did ask him if he ever has been diagnosed with bipolar disorder, he gets very angry and defensive. Patient stated that he did see many outpatient psychiatrists, but "I did not like the medications that they prescribed so I went to someone who has been giving me Xanax for 4 or 5 years up to 2 months ago." SUBSTANCE ABUSE HISTORY: It is an extensive substance abuse history. 1. He stated that he was drinking heavy when he was young, but he was reluctant to tell me when the last time he did drink. 2. Sedative hypnotic. He has been on benzodiazepine for more than 5 or 10 years and when I told him that I did check to the [facility] and no prescription was given to him for at least a couple of months, his answer, "I have been using it from a friend." FAMILY HISTORY OF PSYCHIATRIC ILLNESS: Mother had anxiety. PAST MEDICAL HISTORY: History of seizure disorder, chronic back pain, history of arthritis. ALLERGY TO CODEINE. BRIEF SOCIAL HISTORY: Patient stated that both parents are . He did have one brother and one sister, both . He never had been . He dropped out of school at eighth grade. He does not have any children. He has been living with girlfriend for the last 10 years and according to him she has anxiety and she has been on Xanax for 7 or 8 years. Patient is working in construction but he said that he is applying for social security disability "chronic pain." MENTAL STATUS EXAMINATION: Patient is a male with grayish hair. He looks older than stated age. There is severe psychomotor agitation. Voice is very loud, circumstantial. Stated mood "nervous and irritable." Affect is very labile. His thought process is circumstantial with loose association. He denied any suicidal or homicide ideation. There is no evidence of psychosis. Patient could not participate in memory testing due to his high agitation especially when I told him that I will not give him Xanax but I will try to control his anxiety with non-habit medication. He started getting very angry and I had to leave and he walked after me and security was called. Insight and judgment are limited. FORMULATION: 1. 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 3. History of alcohol abuse and dependence. 4. History of depression and anxiety versus bipolar disorder or poor impulse control. RECOMMENDATION: I will start the patient on Zyprexa p.r.n. for his agitation. However, I will not prescribe any benzodiazepine for him. Today, patient is not psychotic and also not suicidal or homicide, so there is no indication for psychiatric admission. Patient may refer back to his outpatient psychiatrist that he was seeing for 4 or 5 years.
[2016-11-24] MEDS ORDERED: ZIPRASIDONE 20 MG VIAL IM STA (14:10)
--- NOTE | 2016-11-24 15:16 | CT ---
EXAMINATION TYPE: CT abdomen pelvis w con DATE OF EXAM: 11/24/2016 2:11 PM COMPARISON: 07/05/2014 HISTORY: umbilical pain CT DLP: 496..8 mGycm CONTRAST: CT scan of the abdomen and pelvis is performed with Oral Contrast and with IV Contrast, patient injec ubaldo with 100 ml mL of Omnipaque 300. FINDINGS: LUNG BASES-: No visible nodule. No infiltrate. LIVER/GB: No calcified gallstones. No space occupying hepatic lesion. Biliary tree is of normal ca liber. Fatty hepatic infiltration noted. PANCREAS: No inflammation. No distinct mass. SPLEEN: No splenic enlargement. No lesion seen. ADRENALS: No nodule. No thickening. KIDNEYS/BLADDER: No hydronephrosis. No nephrolithiasis. No disctinct renal mass. Urinary bladder g rossly unremarkable. BOWEL: Normal appendix. Normal bowel caliber. No inflammation. GENITAL ORGANS: No gross abnormality. LYMPH NODES: No greater than 1cm abdominal or pelvic lymph nodes are appreciated. AORTA: No significant abnormality. OSSEOUS STRUCTURES: No significant abnormality is seen. OTHER: No significant additional abnormality is seen. IMPRESSION: 1. No acute process to account for the patient's symptoms.
[2016-11-24] MEDS: DIAZEPAM 5 MG/ML 2 ML SYRINGE IVP PRN ×2 (16:19→23:17)
[2016-11-24] MEDS ORDERED: Potassium Replacement Protocol 1 EACH MISC MISCELLANE PRN (16:51)
[2016-11-24] MEDS: POTASSIUM CHLORIDE ER 20 MEQ TAB.ER PO SCH (17:50)
[2016-11-24] MEDS: THIAMINE 100 MG TAB PO SCH (17:51)
[2016-11-24] MEDS: ZIPRASIDONE 20 MG VIAL IM PRN (20:55)
[2016-11-24] MEDS: OLANZapine ODT 5 MG TAB PO PRN (21:01)
[2016-11-25] MEDS: DIAZEPAM 5 MG/ML 2 ML SYRINGE IVP PRN ×4 (05:29→20:45)
[2016-11-25] MEDS: OLANZapine ODT 5 MG TAB PO PRN ×2 (05:37→13:46)
[2016-11-25 08:07] LABS: Basophils % (A) 0 %; CH 34.9; Eosinophils # (A) 0.2 k/uL (0-0.7); Eosinophils % (A) 4 %; HCT 40.7 % (39.0-53.0); HDW 2.55; HGB 13.2 gm/dL (13.0-17.5); Luc # (Auto) 0.21; Luc % (Auto) 3; Lymphocytes % (A) 16 %; MCH 33.6 pg (25.0-35.0); MCHC 32.5 g/dL (31.0-37.0); MCV 103.2 fL (80.0-100.0); Macrocytosis Slight; Mean Platelet Volume 7.9; Monocytes # (A) 0.5 k/uL (0-1.0); Monocytes % (A) 8 %; Neutrophils # (A) 4.2 k/uL (1.3-7.7); Neutrophils % (A) 68 %; RBC 3.94 m/uL (4.30-5.90); RDW 13.7 % (11.5-15.5); WBC 6.2 k/uL (3.8-10.6); WBC (Perox) 6.41
[2016-11-25 08:24] LABS: ALT 86 U/L (21-72); AST 117 U/L (17-59); Alkaline Phosphatase 120 U/L (38-126); Anion Gap 15 mmol/L; Blood Urea Nitrogen 11 mg/dL (9-20); Calcium 9.5 mg/dL (8.4-10.2); Carbon Dioxide 27 mmol/L (22-30); Chloride 103 mmol/L (98-107); Glucose 87 mg/dL (74-99); Non-African American GFR(MDRD) >60 (>60 ml/min/1.73 sqM); Potassium 3.6 mmol/L (3.5-5.1); Sodium 145 mmol/L (137-145); Total Bilirubin 1.1 mg/dL (0.2-1.3); Total Protein 7.4 g/dL (6.3-8.2)
[2016-11-25] MEDS: NICOTINE 14MG/24HR PATCH TRANSDERM SCH ×2 (08:31→08:38)
[2016-11-25] MEDS: PHENYTOIN SODIUM EXTENDED 100 MG CAP PO SCH ×2 (08:31→20:20)
--- NOTE | 2016-11-25 10:06 | HP ---
DATE OF ADMISSION: 11/23/2016. CHIEF COMPLAINT: A 56-year-old white male with seizures. HISTORY OF PRESENT ILLNESS: This is a 56-year-old white male, transfer for status epilepticus from [facility] to our hospital over here. ( ) bolus and Ativan were given in the ER for seizures. Did not address the fever. No family came with him at this time. He is asking for anxiety medicine and pain medicine. Home medications unable to access. ALLERGIES: Negative except for CODEINE. REVIEW OF SYSTEMS: Unobtainable as patient is kind of lethargic. Please see HPI. Otherwise 14-point was negative. PAST MEDICAL HISTORY: He was admitted on 12/01/2014. They did not get a reliable history at that time. Clearly he has some liver failure, back pain, anxiety, depression, nicotine usage, arthritis, maybe some seizures in the past, tooth extraction. PAST SURGICAL HISTORY: Unable to obtain. PSYCHIATRIC HISTORY: Anxiety and depression. He takes Xanax for anxiety, Ambien for insomnia. SOCIAL HISTORY: He was a heavy drinker in the past. Current every day smoker. apparently sees Dr. Mccartney as an outpatient. FAMILY HISTORY: Mother of lung cancer. PHYSICAL EXAMINATION: GENERAL: Thin, cachectic, well hydrated, in no acute distress. HEENT: Pupils equal, and reactive to light and accommodation. No scleral icterus. LUNGS: Mild expiratory wheeze, otherwise clear. CARDIOVASCULAR: S1, S2. ABDOMEN: Possible hepatomegaly in the right upper quadrant 2 inches below the costal margin. Otherwise nontender. SKIN: Dry. No rashes, excoriations, bruising. He is alert and oriented x1. He appears to be lethargic but he can move all extremities on musculoskeletal exam. LYMPH: No significant lymphadenopathy. PSYCHIATRIC: Appears anxious, nervous. PHYSICAL EXAMINATION: Temp on admission 102.2 to 101.5, pulse 87 to 91, respiratory rate 16 to 18, blood pressure 120s to 130s over 70s, 02 of 93 to 94% on room air. Chest x-ray is negative. White count is normal. Creatinine is 0.60. Sodium 138, potassium 3.6, AST 131, alk phos 145. ASSESSMENT: 1. Status epilepticus. 2. Fever of unclear etiology. 3. Possible psychiatric disorder versus alcohol disorder. 4. Increased confusion/encephalopathy, unclear etiology. Await psychiatric and neurology consults.
--- NOTE | 2016-11-25 10:11 | PN ---
SUBJECTIVE: A 56-year-old white male who was seen by psychiatry and neurology for altered mental status and for some violent behavior. He has been put in four-point restraints throughout the day. He was seen by neurology and psychiatric for unclear reasons. The patient may be having some kind of bipolar or psychosis. He is being worked up by Dr. Loving's with recommendations. Also examined as well by neurology and psychiatry. VITAL SIGNS: Stable, afebrile. CARDIOVASCULAR: S1 and S2. LUNGS: Clear. GI: Soft. HEMATOLOGIC: Negative Homans. ASSESSMENT: 1. Possibly some encephalopathy, unclear, possibly alcohol withdrawal versus psychotic behavior. 2. Right upper quadrant pain and liver failure, being addressed by surgery. Please see further orders.
[2016-11-25] MEDS ORDERED: POTASSIUM CHLORIDE ER 20 MEQ TAB.ER PO SCH (12:00)
[2016-11-25 12:20] LABS: Magnesium 1.8 mg/dL (1.6-2.3)
--- NOTE | 2016-11-25 13:29 | P.PN ---
Subjective A 56 -year-old being seen this morning is sitting up in a chair with a sitter at the bedside patient has multiple chief complaints. Patient reports having abdominal pain points to the mid abdomen states it hurts all over" concert like that for several months. Patient additionally is stating he has having constipation. Sitter at the bedside indicates patient has had several stools. Did note the patient is being seen by multiple consulting physicians. Has been seen by surgical service. The ultrasound of the gallbladder did not show any evidence of gallbladder disease. Liver enzymes remain slightly elevated but are trending down ammonia level less than 9. AST 117, ALT 86. Alk phos 120. Electrolytes within normal limits no white count potassium on admission was 3.3 at has been corrected it's currently 3.6 patient has no adequate recall of events. Is oriented to self only. Easily agitated. Patient stating he doesn' t know why he is here. Reviewing the medical record from the emergency room indicate that the patient was picked up via the EMS system after patient was noted to have altered mental status. Originally the EMS was activated because of a seizure. According to the records the patient was found have altered mental status and did not appear postictal. . the patient is a transfer from [facility] status post epilepticus. Patient did receive a loading dose of Dilantin and 4 mg of Ativan at [facility] prior to his arrival to the emergency room. Subsequent patient was admitted with multiple consulting physicians participating in patient's plan of care. Did note that the mental health service did see patient reviewed the recommendations. Patient has an extensive substance abuse history. According to the patient is been on benzodiazepine for 5 or 10 years. When the mental health service check the [facility] there was no prescription given to the patient for at least a couple months he stated that he been taking Xanax from a friend Patient is sent been seen by neurology.. Patient was diagnosed with a seizure disorder proximally a year ago. According to the patient he been taking Dilantin in the home setting but took himself off of it. CAT scan done in the emergency room showed no acute abnormality. EEG pending. Objective - Vital Signs Vital signs: Vital Signs Temp 98.2 F 11/25/16 07:00 Pulse 99 11/25/16 07:00 Resp 18 11/25/16 07:00 BP 136/95 11/25/16 07:00 Pulse Ox 94 L 02/27/17 07:00 Intake & Output 11/24/16 11/25/16 11/25/16 18:59 06:59 18:59 Output Total 1000 600 Balance -1000 -600 Output: Urine 1000 600 Other: Voiding Method Urinal Urinal Toilet # Voids 1 - Exam Physical exam 56-year-old gentleman looking much older than stated age sitting up in the chair overly talkative easily agitated with conversation. Sitter at the bedside. Patient continues to state he doesn't know why he's here has remained afebrile temp this morning 98.2. Last elevated temp was on November 23 100 point 7 Lungs on room air essentially clear with adequate air movement Heart S1-S2 audible and regular Abdomen flat nontender not distended nursing reports patient is having loose stools. Nursing reports patient is not having any active emesis has not vomited Extremities no edema to the upper or lower extremities - Labs CBC & Chem 7: 11/25/16 07:06 11/25/16 07:06 Labs: Abnormal Lab Results - Last 24 Hours (Table) 11/25/16 11/25/16 Range/Units 07:06 07:06 RBC 3.94 L (4.30-5.90) m/uL MCV 103.2 H (80.0-100.0) fL AST 117 H (17-59) U/L ALT 86 H (21-72) U/L Assessment and Plan Plan: Impression Present on admission elevated liver enzymes trending down Present on admission right upper quadrant abdominal pain with an ultrasound of the abdomen showing no evidence of gallbladder disease Transfer from [facility] status post epilepticus Current every day smoker suspect COPD on diagnosed History of a seizure disorder noncompliant with medication and follow-up quit taking Dilantin several months prior Present on admission febrile resolved influenza A and B not detected History of frequent stools with C. 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 History of depression and anxiety nonspecified bipolar disorder not ruled out Sedative hypnotic abuse and dependence History of alcoholism and dependence Ultrasound of the abdomen hepatomegaly suspect hepatic steatosis or other nonspecific hepatocellular disease CT of the abdomen and pelvis with contrast shows no acute findings present on admission hypokalemia corrected resolving Plan Continue sitter at the bedside Continue recommendations by mental health Continue the nicotine patch at 14 MGs daily continue recommendations by neurology currently on Dilantin 200 twice a day Continue Valium 2 mg IV every 6 hours when necessary for acute agitation Further recommendations pending will follow school social worker to pursue the discharge plan patient may benefit from admission to [facility] The above dictated assessment and findings were discussed with Dr. Aguero. Impression and the plan of care have been dictated as directed. Shanae Squires nurse practitioner acting as a scribe for Dr. Aguero.
[2016-11-25] MEDS: THIAMINE 100 MG TAB PO SCH ×2 (13:46→16:23)
[2016-11-25] MEDS: PANTOPRAZOLE 40 MG TABLET PO SCH (15:09)
--- NOTE | 2016-11-25 16:28 | P.PN ---
Subjective Principal diagnosis: Patient is a pleasant 56-year-old male who is being followed by the neurology service for seizures. Patient is a poor historian and information has been obtained from staff, chart, and some from patient. Reportedly patient had seizure activity and was taken to another facility and stabilized. Patient was then transferred here for further medical management. Patient also has history of abdominal pain with frequent nausea and vomiting. GI has been consulted. Patient presented with fever and infectious disease has also been consulted. Reportedly, patient has history of alcohol abuse. Patient is more confused and somewhat agitated and combative today. No seizure activity since admission. Patient continues on Dilantin 200 mg twice a day. EEG was normal. At the time of my evaluation, patient is sitting in the chair at bedside and appears to be in no acute distress. Objective - Vital Signs Vital signs: Vital Signs Temp 98.2 F 11/25/16 07:00 Pulse 99 11/25/16 07:00 Resp 18 11/25/16 07:00 BP 136/95 11/25/16 07:00 Pulse Ox 94 L 11/25/16 07:00 Intake & Output 11/24/16 11/25/16 11/25/16 18:59 06:59 18:59 Output Total 1000 600 Balance -1000 -600 Output: Urine 1000 600 Other: Voiding Method Urinal Urinal Toilet # Voids 1 2 # Bowel Movements 2 - Exam PHYSICAL EXAM: GENERAL APPEARANCE: Patient is a well-developed, male who appears to be in no acute distress. HEENT: Normocephalic, atraumatic, no facial asymmetry is seen. Neck is supple with no masses felt. CARDIOVASCULAR: Regular rate and rhythm. ABDOMEN: Nontender, nondistended. EXTREMITIES: Show no edema or clubbing. NEUROLOGICAL EXAM: Patient is awake, alert, and oriented 3. Speech and language are normal. Strength is full in all 4 extremities. Sensory exam to light touch is normal in all 4 extremities. No facial asymmetry is seen on cranial nerve testing. No tremors or seizure-like activity is noted. - Labs CBC & Chem 7: 11/25/16 07:06 11/25/16 07:06 Labs: Abnormal Lab Results - Last 24 Hours (Table) 11/25/16 11/25/16 Range/Units 07:06 07:06 RBC 3.94 L (4.30-5.90) m/uL MCV 103.2 H (80.0-100.0) fL AST 117 H (17-59) U/L ALT 86 H (21-72) U/L Assessment and Plan (1) Abdominal pain Status: Acute (2) Status epilepticus Status: Acute Plan: Impression: 1. Seizure disorder 2. Abdominal pain 3. Reported history of alcohol abuse 4. Noncompliant with medication Recommendations: It appears patient was recently diagnosed with seizure disorder. Patient believes last seizure was approximately a year ago. Patient had been taking Dilantin the home setting and decided to take himself off. I will place him back on last ordered Dilantin dose which was confirmed with his pharmacy. Patient will continue Dilantin 200 mg twice a day. I had ordered an EEG which was normal. CT of the brain was done and showed no acute abnormalities. Continue seizure precautions. Continue neurological checks. Continue current medical management. No further seizures since admission. Patient can be discharged home on current dose of Dilantin. Patient was advised that under state law he cannot drive for a period of 6 months following seizure. I will continue to follow with you on an as-needed basis. Feel free to call with any questions or concerns. I performed an examination of the patient and discussed the management with the HOLLOW TILE PARTITION ERECTOR. I have reviewed the HOLLOW TILE PARTITION ERECTOR notes and agree with the findings and plan of care.
--- NOTE | 2016-11-25 16:32 | P.PN ---
Subjective Principal diagnosis: Abdominal pain Patient is a 56-year-old white male consulted for increased liver enzymes and persistent vomiting for more than a month. Ultrasound with no evidence of gallbladder disease. CT of abdomen and pelvis with evidence of fatty hepatic infiltration, otherwise no acute process to account for patient's symptoms. Upon examination, patient reports 3 episodes of black stools this morning. Patient reports chronic diarrhea. Patient complains of right upper and left upper quadrant pain, present for over a month per patient. Currently denies nausea or vomiting. Afebrile. No evidence of leukocytosis. Hemoglobin 13.2. AST and ALT decreased from yesterday. Objective - Vital Signs Vital signs: Vital Signs Temp 98.2 F 11/25/16 07:00 Pulse 99 11/25/16 07:00 Resp 18 11/25/16 07:00 BP 136/95 11/25/16 07:00 Pulse Ox 94 L 11/25/16 07:00 Intake & Output 11/24/16 11/25/16 11/25/16 18:59 06:59 18:59 Output Total 1000 600 Balance -1000 -600 Output: Urine 1000 600 Other: Voiding Method Urinal Urinal Toilet # Voids 1 2 # Bowel Movements 2 - Exam GENERAL: Pt awake and alert, sitting on the side of the bed, thin appearing, in no acute distress. LUNGS: Breath sounds clear to auscultation bilaterally. No wheezes, rales, or rhonchi. HEART: Heart S1, S2, no S3 or S4. Regular rate and rhythm. No murmurs, rubs or gallops. ABDOMEN: Soft, mild right upper quadrant and left upper quadrant tenderness, nondistended, normoactive bowel sounds. No guarding, no rebound. No masses or organomegaly appreciated. - Labs CBC & Chem 7: 11/25/16 07:06 11/25/16 07:06 Labs: Abnormal Lab Results - Last 24 Hours (Table) 11/25/16 11/25/16 Range/Units 07:06 07:06 RBC 3.94 L (4.30-5.90) m/uL MCV 103.2 H (80.0-100.0) fL AST 117 H (17-59) U/L ALT 86 H (21-72) U/L Assessment and Plan Plan: Impression: 1. Elevated liver enzymes, present on admission, improving. CT of abdomen and pelvis with evidence of fatty liver infiltrate. 2. Frequent diarrhea, C. difficile negative. 3. History of vomiting 1 month or more per patient. Plan: 1. Will obtain HIDA scan to rule out gallbladder dyskinesia. The above impression and plan have been discussed and directed by Dr. Ott. Leonora GUTIERREZ acting as scribe for Dr. Ott.
--- NOTE | 2016-11-25 19:23 | P.PN ---
Subjective Principal diagnosis: Seizure 56-year-old male who presents to [facility] is an outside transfer due to his seizures and concerns to status epilepticus. He was loaded with Dilantin and Ativan. In that had improvement. Upon approach the patient is not actively seizing. He however is a poor historian. Apparently he was having some difficulties with abdominal pain. It may not been taking his medications at home. It admission he did have difficulty with fever with at the infectious diseases consultation is requested. There was evidence of elevated liver function tests also. Upon questioning the patient does not have many complaints at this point in time. But again he is a poor historian. Patient is been very agitated today. Has required security guards in the room. He has a girlfriend and they have a very loud relationship Objective - Vital Signs Vital signs: Vital Signs Temp 98.2 F 11/25/16 07:00 Pulse 99 11/25/16 07:00 Resp 18 11/25/16 07:00 BP 136/95 11/25/16 07:00 Pulse Ox 94 L 11/25/16 07:00 Intake & Output 11/25/16 11/25/16 11/26/16 06:59 18:59 06:59 Output Total 600 Balance -600 Output: Urine 600 Other: Voiding Method Urinal Toilet # Voids 1 2 # Bowel Movements 2 - Exam 56-year-old male appears about his stated age. Thin build. Temperature 102.2 at admission. HEENT: Anicteric conjunctiva are pink and moist nasal mucosa grossly intact without significant lesions, there is no thrush. Poor dentition Neck: The neck is supple without significant lymphadenopathy or thyromegaly. Lungs: Symmetrical air entry with expiratory wheezes but no anyi bronchial sounds Heart: Regular rate and rhythm with an audible S1-S2, no S3 no S4. There is no significant murmur click or rub, PMI was nondisplaced. Abdomen: Positive bowel sounds soft and nontender without palpable masses or organomegaly. There was no guarding or rebound. Extremities: The upper extremities have excellent pulses they are symmetric, no significant petechiae or telangiectasia. No splinter hemorrhages were noted. The lower extremities are free from significant edema. The peripheral pulses were 2+ and symmetric. Neuro: Awake alert oriented to person and place. Followed simple commands. The upper and lower extremities on command. - Labs CBC & Chem 7: 11/25/16 07:06 11/25/16 07:06 Labs: Abnormal Lab Results - Last 24 Hours (Table) 11/25/16 11/25/16 Range/Units 07:06 07:06 RBC 3.94 L (4.30-5.90) m/uL MCV 103.2 H (80.0-100.0) fL AST 117 H (17-59) U/L ALT 86 H (21-72) U/L Laboratory Results WBC 6.2 k/uL (3.8-10.6) 11/25/16 07:06 RBC 3.94 m/uL (4.30-5.90) L 11/25/16 07:06 Hgb 13.2 gm/dL (13.0-17.5) 11/25/16 07:06 Hct 40.7 % (39.0-53.0) 11/25/16 07:06 MCV 103.2 fL (80.0-100.0) H 11/25/16 07:06 MCH 33.6 pg (25.0-35.0) 11/25/16 07:06 MCHC 32.5 g/dL (31.0-37.0) 11/25/16 07:06 RDW 13.7 % (11.5-15.5) 11/25/16 07:06 Plt Count 199 k/uL (150-450) 11/25/16 07:06 Neutrophils % 68 % 11/25/16 07:06 Lymphocytes % 16 % 11/25/16 07:06 Monocytes % 8 % 11/25/16 07:06 Eosinophils % 4 % 11/25/16 07:06 Basophils % 0 % 11/25/16 07:06 Neutrophils # 4.2 k/uL (1.3-7.7) 11/25/16 07:06 Lymphocytes # 1.0 k/uL (1.0-4.8) 11/25/16 07:06 Monocytes # 0.5 k/uL (0-1.0) 11/25/16 07:06 Eosinophils # 0.2 k/uL (0-0.7) 11/25/16 07:06 Basophils # 0.0 k/uL (0-0.2) 11/25/16 07:06 Macrocytosis Slight 11/25/16 07:06 Sodium 145 mmol/L (137-145) 11/25/16 07:06 Potassium 3.6 mmol/L (3.5-5.1) 11/25/16 07:06 Chloride 103 mmol/L (98-107) 11/25/16 07:06 Carbon Dioxide 27 mmol/L (22-30) 11/25/16 07:06 Anion Gap 15 mmol/L 11/25/16 07:06 BUN 11 mg/dL (9-20) 11/25/16 07:06 Creatinine 0.68 mg/dL (0.66-1.25) 11/25/16 07:06 Est GFR (MDRD) Af Amer >60 (>60 ml/min/1.73 sqM) 11/25/16 07:06 Est GFR (MDRD) Non-Af >60 (>60 ml/min/1.73 sqM) 11/25/16 07:06 Glucose 87 mg/dL (74-99) 11/25/16 07:[address] Glu mg/dL 117 mg/dL 11/23/16 08:18 Hemoglobin A1c 5.7 % (4.2-6.1) 11/23/16 08:18 Plasma Lactic Acid Otis 0.6 mmol/L (0.7-2.0) L 11/23/16 08:18 Calcium 9.5 mg/dL (8.4-10.2) 11/25/16 07:06 Magnesium 1.8 mg/dL (1.6-2.3) 11/25/16 07:06 Total Bilirubin 1.1 mg/dL (0.2-1.3) 11/25/16 07:06 AST 117 U/L (17-59) H 11/25/16 07:06 ALT 86 U/L (21-72) H 11/25/16 07:06 Alkaline Phosphatase 120 U/L (38-126) 11/25/16 07:06 Ammonia <9 umol/L (<30) 11/24/16 10:29 Total Protein 7.4 g/dL (6.3-8.2) 11/25/16 07:06 Albumin 4.2 g/dL (3.5-5.0) 11/25/16 07:06 Amylase <30 U/L (30-110) L 11/23/16 08:18 Lipase 116 U/L (23-300) 11/23/16 08:18 Urine Color Yellow 11/23/16 01:21 Urine Appearance Clear (Clear) 11/23/16 01:21 Urine pH 8.0 (5.0-8.0) 11/23/16 01:21 Ur Specific [place] 1.025 (1.001-1.035) 11/23/16 01:21 Urine Protein 1+ (Negative) H 11/23/16 01:21 Urine Glucose (UA) Negative (Negative) 11/23/16 01:21 Urine Ketones 1+ (Negative) H 11/23/16 01:21 Urine Blood Negative (Negative) 11/23/16 01:21 Urine Nitrate Negative (Negative) 11/23/16 01:21 Urine Bilirubin Negative (Negative) 11/23/16 01:21 Urine Urobilinogen 6.0 mg/dL (<2.0) 11/23/16 01:21 Ur Leukocyte Esterase Negative (Negative) 11/23/16 01:21 Urine RBC 1 /hpf (0-5) 11/23/16 01:21 Urine WBC 1 /hpf (0-5) 11/23/16 01:21 Urine Mucus Rare /hpf (None) H 11/23/16 01:21 C. difficile (EIA) Intrp Negative (Negative) 11/23/16 18:13 Hepatitis A IgM Ab NEGATIVE 11/23/16 08:18 Hep Bs Antigen Negative 11/23/16 08:18 Hep B Core IgM Ab NEGATIVE 11/23/16 08:18 Hep C IgG Ab Negative (Negative) 11/23/16 08:18 Influenza Type A RNA Not Detected (Not Detectd) 11/22/16 23:44 Influenza Type B (PCR) Not Detected (Not Detectd) 11/22/16 23:44 Assessment and Plan (1) Fever Narrative/Plan: 56-year-old male with a history of a seizure disorder. Potential alcohol abuse presents to our facility with evidence of seizure. This is no undercontrol with loading of Dilantin and some Ativan. The patient does have a fever that has now resolved. Fever is not an unusual manifestation of seizure. Patient has been seen by surgery because of complaints of abdominal pain. The patient does have evidence of an abnormal liver on his ultrasound. He has changed further since his November 2014 exam. Surgical evaluation is a curb with no plans for surgical intervention. We'll obtain baseline hepatitis status. At this time does not appear to have underlying infection that is bacterial in nature and would not need antibiotic therapy Fevers have resolved. As he improved his health will need follow-up liver function tests as an outpatient evidence of viral hepatitis Status: Acute (2) Seizure Status: Acute
[2016-11-26] MEDS: ZIPRASIDONE 20 MG VIAL IM PRN (00:52)
[2016-11-26] MEDS: DIAZEPAM 5 MG/ML 2 ML SYRINGE IVP PRN (03:20)
[2016-11-26 07:14] LABS: Basophils % (A) 1 %; CH 34.6; Eosinophils # (A) 0.3 k/uL (0-0.7); Eosinophils % (A) 4 %; HCT 41.7 % (39.0-53.0); HDW 2.53; HGB 13.3 gm/dL (13.0-17.5); Luc # (Auto) 0.26; Luc % (Auto) 3; Lymphocytes # (A) 1.7 k/uL (1.0-4.8); Lymphocytes % (A) 21 %; MCH 33.5 pg (25.0-35.0); MCHC 31.8 g/dL (31.0-37.0); MCV 105.4 fL (80.0-100.0); Macrocytosis Slight; Mean Platelet Volume 7.5; Monocytes # (A) 0.7 k/uL (0-1.0); Monocytes % (A) 9 %; Neutrophils % (A) 62 %; RBC 3.96 m/uL (4.30-5.90); RDW 13.6 % (11.5-15.5); WBC (Perox) 8.38
--- NOTE | 2016-11-26 07:27 | EEG ---
DATE OF SERVICE: 11/25/2016 REASON FOR TESTING: Seizures. AGE: 56Y CURRENT ANTIEPILEPTIC MEDICATIONS: Dilantin. DESCRIPTION OF THE PROCEDURE: This EEG was performed using a 21-channel digital electroencephalograph, following the international 10 - 20 system. DESCRIPTION OF THE RECORDING: From the beginning of the tracing, and with the patient's eyes closed, the background rhythm was mostly consisting of 10 to 11 Hz alpha frequency in the posterior occipital leads. No obvious asymmetry is seen. Photic stimulation was performed with a good driving response seen. No pathological waves were elicited. Hyperventilation was not performed. Occasional movement artifacts and muscle artifacts are seen. The patient remains awake throughout the tracing. No epileptiform discharges were seen. INTERPRETATION: This awake EEG can be considered within normal limits. There was no asymmetry seen. No epileptiform discharges were noticed. The absence of epileptiform discharges does not rule out the diagnosis of epilepsy, therefore, clinical correlation is recommended.
[2016-11-26 07:29] LABS: ALT 69 U/L (21-72); AST 65 U/L (17-59); Alkaline Phosphatase 108 U/L (38-126); Anion Gap 13 mmol/L; Blood Urea Nitrogen 11 mg/dL (9-20); Calcium 9.4 mg/dL (8.4-10.2); Carbon Dioxide 26 mmol/L (22-30); Chloride 104 mmol/L (98-107); Glucose 80 mg/dL (74-99); Non-African American GFR(MDRD) >60 (>60 ml/min/1.73 sqM); Potassium 3.8 mmol/L (3.5-5.1); Sodium 143 mmol/L (137-145); Total Bilirubin 1.2 mg/dL (0.2-1.3); Total Protein 7.1 g/dL (6.3-8.2)
[2016-11-26] MEDS ORDERED: HALOPERIDOL 5 MG TAB PO PRN (09:00)
[2016-11-26] MEDS ORDERED: HALOPERIDOL LACTATE 5 MG/ML 1 ML VIAL IM PRN (09:00)
[2016-11-26] MEDS ORDERED: LORazepam 2 MG/ML SYRINGE IM PRN (09:02)
[2016-11-26] MEDS: NICOTINE 14MG/24HR PATCH TRANSDERM SCH (09:22)
[2016-11-26] MEDS: PHENYTOIN SODIUM EXTENDED 100 MG CAP PO SCH ×2 (09:23→19:28)
[2016-11-26] MEDS: PANTOPRAZOLE 40 MG TABLET PO SCH (09:23)
[2016-11-26] MEDS: THIAMINE 100 MG TAB PO SCH ×2 (09:23→19:28)
--- NOTE | 2016-11-26 09:26 | P.CN ---
Psychiatric Consult - . Consult date: 11/26/16 Consult:: IDENTIFYING DATA: Mr. Vigil is a 56-year-old male admitted to medicine service on 11/23/2016 with a diagnosis of status epilepticus. The medicine unit we consulted psychiatry because the patient remains confused and agitated to the point where his management requires restraint and one-to-one supervision. HISTORY OF PRESENT ILLNESS: I reviewed the medical record (including the surgical, neurology, and medical consultation in addition to the chest x-ray, brain CT and EEG) and attempted to interview the patient. Dr. 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 I attempted to interview Mr. Kinney but he was unable to provide a coherent history, coherently expresses concerns or explain the reason for his hospitalization. In fact, he he was unaware that he was in a medical hospital. He talked about "them" appearing in his room and placing him in restraints. He believes that "they" were hiding under the bed and a table. He pointed to the corner of his bed to indicate one of "them" as though she were responding to internal stimuli. He repeatedly asked me to remove the restraints so that he could show me "them". MENTAL STATUS EXAM: He resented as a casually groomed middle-aged male who is sitting up in his bed eating breakfast with the assistance of a security business analyst. Both hands and one leg were restrained. He initially made eye contact and appeared to attend to the interview. However he became more distractible as the interview progressed. His eyes wandered the room. He appeared internally preoccupied. He knew his name, the year, the months of the day. He did not did not know the name of this hospital or that it was a hospital. I gave him a multiple choice option (is this a hotel, a school or hospital?) that only appeared to further confuse him. He was restless and struggling against restraints. His speech was spontaneous but decreased in amount and volume. At times he mumbled and appeared to startle when I asked him what he said. He appeared suspicious and guarded. His thinking was not coherent, logical or goal directed. He perseverated on the delusional belief about the presence of people hiding in his room. At times she appeared to be having visual hallucinations. Other times he looked around the room as though he were experiencing auditory hallucinations. IMPRESSIONS: His presentation is most consistent with a delirium (rather than a primary psychotic illness) is likely due to multiple etiologies including withdrawal from sedative/hypnotics. PLAN: Recommended to continue restraints and one-to-one as needed for the management of her delirium. I discontinued the Zyprexa and Geodon and ordered haloperidol 5 mg IM/by mouth every 6 hours when necessary for agitation/ psychosis and lorazepam 2 mg by mouth/IM every 6 hours when necessary for agitation. If the six-hour dosing of the haloperidol is inadequate in controlling his behavior we can increase the frequency. I will continue to follow. 11/26/16 09:05
--- NOTE | 2016-11-26 14:21 | P.PN ---
Subjective 56-year-old male currently in 4. point leather restraints on for patient safety with a sitter at the bedside as well as security . Patient's been seen by the mental health service who feels that the patient's clinical presentation is most consistent with a delirium rather than a primary psychotic illness likely due to multiple etiologies including withdrawal from sedative hypnotics they have discontinued the zyprexa and geodon and are recommending Haldol 5 mg as needed for agitation and 2 of Ativan if necessary. Currently events were noted during the night patient was having aggressive inappropriate behavior. Became very agitated attempt to leave the floor security had to be activated with the Mr. reddy. Team activated Patient needed to be placed in restraints with security at the bedside . Patient continues to be on uncooperative. Surgical service did see patient for HIDA scan canceled due to the patient not being able to cooperate. drop board worker will see patient when patient is able to be interviewed appropriately we'll hold for now Infectious disease Dr. Eldridge participating in the plan of care. Fevers have resolved. At this time does not appear to have an underlying infection that is bacterial in nature and would not require antibiotic therapy per infectious diseases recommendations Patient continues to be uncooperative easily agitated Objective - Vital Signs Vital signs: Vital Signs Temp 98.0 F 11/25/16 22:15 Pulse 98 11/26/16 08:33 Resp 18 11/26/16 08:33 BP 148/80 11/26/16 08:33 Pulse Ox 93 L 11/26/16 02:21 Intake & Output 11/25/16 11/26/16 11/26/16 18:59 06:59 18:59 Intake Total 590 Balance 590 Intake: Oral 590 Other: Voiding Method Toilet Toilet Toilet Urinal Urinal # Voids 2 2 1 # Bowel Movements 2 - Exam Physical exam 56-year-old unkempt male looking older than stated age currently low the restraints on 4 extremities for patient safety easily agitated sitter and security guards that the room the temp currently this morning is 98. Patient has been afebrile for the last 48 hours Lungs essentially clear adequate air movement on room air no shortness of breath Heart S1-S2 audible regular Abdomen flat nontender not distended Extremities no edema noted - Labs CBC & Chem 7: 11/26/16 06:42 02/28/17 06:42 Labs: Abnormal Lab Results - Last 24 Hours (Table) 11/26/16 11/26/16 Range/Units 06:42 06:42 RBC 3.96 L (4.30-5.90) m/uL MCV 105.4 H (80.0-100.0) fL AST 65 H (17-59) U/L Assessment and Plan Plan: Impression Present on admission elevated liver enzymes trending down Present on admission right upper quadrant abdominal pain with an ultrasound of the abdomen showing no evidence of gallbladder disease Transfer from [facility] status post epilepticus Current every day smoker suspect COPD undiagnosed History of a seizure disorder noncompliant with medication and follow-up quit taking Dilantin several months prior Present on admission febrile resolved influenza A and B not detected History of frequent stools with C. 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 History of depression and anxiety nonspecified bipolar disorder not ruled out Sedative hypnotic abuse and dependence History of alcoholism and dependence Ultrasound of the abdomen hepatomegaly suspect hepatic steatosis or other nonspecific hepatocellular disease CT of the abdomen and pelvis with contrast shows no acute findings present on admission hypokalemia corrected resolving Aggressive behavior consistent with a delirium likely due to multiple etiologies including withdrawal from sedative/hypnotics Episodes of visual and auditory hallucinations Plan Continue sitter at the bedside Will health service recommends discontinuing Geodon and zyprexa give Haldol 5 mg IM or oral every 6 hours when necessary for agitation and psychosis and Ativan 2 mg by mouth or IM every 6 hours when necessary for agitation if the 6 hour dosing of Haldol is inadequate in controlling his behavior would increase the frequency they will follow Continue the nicotine patch at 14 MGs daily continue recommendations by neurology currently on Dilantin 200 twice a day Continue recommendations by psychiatric service defer to Further recommendations pending will follow drop board worker to pursue the discharge plan patient may benefit from admission to [facility] The above dictated assessment and findings were discussed with Dr. Aguero. Impression and the plan of care have been dictated as directed. Shanae Squires nurse practitioner acting as a scribe for Dr. Aguero.
--- NOTE | 2016-11-26 15:00 | P.PN ---
Subjective Principal diagnosis: Abdominal pain Patient is a 56-year-old white male consulted for increased liver enzymes and persistent vomiting for more than a month. Ultrasound with no evidence of gallbladder disease. CT of abdomen and pelvis with evidence of fatty hepatic infiltration, otherwise no acute process to account for patient's symptoms. Upon examination, patient is lying in bed in soft restraints. Per nurse, patient did not have any episodes of nausea and vomiting and is tolerating diet. Patient states that he had 2 episodes of emesis. Patient complains of abdominal pain. Afebrile. No evidence of leukocytosis. Hemoglobin stable at 13.3. AST and ALT decreased from yesterday. Objective - Vital Signs Vital signs: Vital Signs Temp 98.0 F 11/25/16 22:15 Pulse 98 11/26/16 08:33 Resp 18 11/26/16 08:33 BP 148/80 11/26/16 08:33 Pulse Ox 93 L 11/26/16 02:21 Intake & Output 11/25/16 11/26/16 11/26/16 18:59 06:59 18:59 Intake Total 590 Balance 590 Intake: Oral 590 Other: Voiding Method Toilet Toilet Toilet Urinal Urinal # Voids 2 2 1 # Bowel Movements 2 - Exam GENERAL: Pt awake and alert, lying in bed, thin appearing, in no acute distress. LUNGS: Breath sounds clear to auscultation bilaterally. No wheezes, rales, or rhonchi. HEART: Heart S1, S2, no S3 or S4. Regular rate and rhythm. No murmurs, rubs or gallops. ABDOMEN: Soft, mild right upper quadrant and left upper quadrant tenderness, nondistended, normoactive bowel sounds. No guarding, no rebound. No masses or organomegaly appreciated. - Labs CBC & Chem 7: 11/26/16 06:42 11/26/16 06:42 Labs: Abnormal Lab Results - Last 24 Hours (Table) 11/26/16 11/26/16 Range/Units 06:42 06:42 RBC 3.96 L (4.30-5.90) m/uL MCV 105.4 H (80.0-100.0) fL AST 65 H (17-59) U/L Assessment and Plan Plan: Impression: 1. Elevated liver enzymes, present on admission, improving. CT of abdomen and pelvis with evidence of fatty liver infiltrate. 2. Frequent diarrhea, C. difficile negative. 3. History of vomiting 1 month or more per patient. 4. Acute delirium. Plan: 1. Continue to observe patient. HIDA scan has been canceled secondary to aggressive behavior consistent with delirium with episodes of visual and auditory hallucinations. Patient will be fed a regular diet. The above impression and plan have been discussed and directed by Dr. Ott. Leonora GUTIERREZ acting as scribe for Dr. Ott.
[2016-11-26] MEDS: LORazepam 1 MG TAB PO PRN (19:36)
[2016-11-26] MEDS: ACETAMINOPHEN TAB 325 MG TAB PO PRN (21:56)
[2016-11-27] MEDS: LORazepam 1 MG TAB PO PRN ×4 (01:24→20:58)
[2016-11-27] MEDS: DIAZEPAM 5 MG/ML 2 ML SYRINGE IVP PRN ×2 (01:28→07:39)
[2016-11-27] MEDS: PANTOPRAZOLE 40 MG TABLET PO SCH (07:45)
[2016-11-27] MEDS: NICOTINE 14MG/24HR PATCH TRANSDERM SCH (07:46)
[2016-11-27] MEDS: THIAMINE 100 MG TAB PO SCH ×2 (07:46→16:02)
[2016-11-27] MEDS: PHENYTOIN SODIUM EXTENDED 100 MG CAP PO SCH ×2 (07:46→20:14)
[2016-11-27 08:28] LABS: ALT 53 U/L (21-72); AST 46 U/L (17-59); Alkaline Phosphatase 106 U/L (38-126); Anion Gap 12 mmol/L; Blood Urea Nitrogen 14 mg/dL (9-20); Calcium 9.5 mg/dL (8.4-10.2); Carbon Dioxide 26 mmol/L (22-30); Chloride 104 mmol/L (98-107); Glucose 111 mg/dL (74-99); Non-African American GFR(MDRD) >60 (>60 ml/min/1.73 sqM); Sodium 142 mmol/L (137-145); Total Bilirubin 0.6 mg/dL (0.2-1.3)
--- NOTE | 2016-11-27 11:14 | P.PN ---
Subjective A 56-year-old being seen this morning. Currently is sitting up on the edge of the bed. Sitter at bedside. Nursing reports patient has been cooperative pleasant with no aggressive behavior throughout the night. Patient this morning is able to recall having visual hallucinations the day before. Currently patient is denying abdominal pain dizziness lightheadedness or chest pain when questioning. Currently denying any nausea vomiting or frequent stooling Nursing reports patient is asking to be given IV Valium and Haldol and Ativan patient continues to demonstrate no aggressive behavior this morning did note patient has received during the night IV Valium held off and Ativan Patient was noted to have elevated liver enzymes on admission in which a surgical consultation was requested CAT scan of the abdomen pelvis was obtained it showed evidence of a fatty liver infiltrate. Surgical eval requested. Yesterday on the patient was uncooperative with aggressive behavior resulting in the need to apply 4 point leather restraints Due to patient's aggressive behavior HIDA was canceled yesterday. The labs this morning reviewed AST and ALT trending down alk phos 106. Total bilirubin down to 0.6 electrolytes within normal limits. no document stool no document nausea or vomiting Patient was seen by the mental health service psychiatrist yesterday recommendations reviewed artificial marble worker to evaluate the discharge plan patient was seen by neurology on admission Dr. Beckford. Patient was on Dilantin at home reportedly had quit taking it on his own several months prior. Neurology initiated Dilantin 200 mg twice a day EEG was normal and no further neurological workup indicated at this time On admission the patient was seen by infectious disease Dr. Loving. Influenza A and B was negative hepatitis panel was negative urinalysis negative chest x- ray on admission showed no acute pulmonary process Patient was noted to have a fever on admission temp on admission was 102.2 patient has remained afebrile for the last 48 hours infectious disease indicated they did not feel the patient had underlying infection that would require antibiotic therapy at this time Objective - Vital Signs Vital signs: Vital Signs Temp 98.3 F 11/27/16 07:00 Pulse 86 11/27/16 07:00 Resp 16 11/27/16 07:00 BP 113/75 11/27/16 07:00 Pulse Ox 93 L 11/27/16 07:00 Intake & Output 11/26/16 11/27/16 11/27/16 18:59 06:59 18:59 Intake Total 2220 Balance 2220 Intake: Oral 2220 Other: Voiding Method Toilet Toilet Toilet Urinal Urinal # Voids 2 3 - Exam Physical exam 56-year-old gentleman sitting on the edge of the bed looking older than stated age cooperative no aggressive behavior noted is able to report "I was confused yesterday seeing things that weren't there" Lungs essentially clear on room air no cough noted Heart S1-S2 audible irregular Abdomen soft nontender flat not able to elicit any facial grimacing with palpitation to the abdominal wall Reportedly tolerating diet bowel tones active no document frequent stool no document emesis noted Extremities thin muscle wasting skin tattoos noted to the forearms no edema - Labs CBC & Chem 7: 11/26/16 06:42 11/27/16 07:02 Labs: Abnormal Lab Results - Last 24 Hours (Table) 11/27/16 Range/Units 07:02 Glucose 111 H (74-99) mg/dL Assessment and Plan Plan: Impression Present on admission elevated liver enzymes trending down improving Present on admission right upper quadrant abdominal pain with an ultrasound of the abdomen showing no evidence of gallbladder disease Transfer from [facility] status post epilepticus Current every day smoker suspect COPD undiagnosed History of a seizure disorder noncompliant with medication and follow-up quit taking Dilantin several months prior Present on admission febrile resolved influenza A and B not detected History of frequent stools with C. 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 History of depression and anxiety nonspecified bipolar disorder not ruled out Sedative hypnotic abuse and dependence History of alcoholism and dependence Ultrasound of the abdomen hepatomegaly suspect hepatic steatosis or other nonspecific hepatocellular disease CT of the abdomen and pelvis with contrast shows no acute findings present on admission hypokalemia corrected resolving Aggressive behavior consistent with a delirium likely due to multiple etiologies including withdrawal from sedative/hypnotics Episodes of visual and auditory hallucinations resolving Plan Continue sitter at the bedside [facility] health service recommends discontinuing Geodon and zyprexa give Haldol 5 mg IM or oral every 6 hours when necessary for agitation and psychosis and Ativan 2 mg by mouth or IM every 6 hours when necessary for agitation if the 6 hour dosing of Haldol is inadequate in controlling his behavior would increase the frequency they will follow Continue the nicotine patch at 14 MGs daily continue recommendations by neurology currently on Dilantin 200 twice a day Continue recommendations by psychiatric service defer to Further recommendations pending will follow artificial marble worker to pursue the discharge plan patient may benefit from admission to [facility] to the psychiatrist to address psych meds whether to continue the Valium Haldol and Ativan The above dictated assessment and findings were discussed with Dr. Aguero. Impression and the plan of care have been dictated as directed. Shanae Squires nurse practitioner acting as a scribe for Dr. Aguero.
--- NOTE | 2016-11-27 13:49 | P.PN ---
Subjective Principal diagnosis: Abdominal pain Patient is a 56-year-old white male consulted for increased liver enzymes and persistent vomiting for more than a month. Ultrasound with no evidence of gallbladder disease. CT of abdomen and pelvis with evidence of fatty hepatic infiltration, otherwise no acute process to account for patient's symptoms. Upon examination, patient is sitting on the side of the bed. Patient complains of chronic abdominal pain. Patient states he had some diarrhea this morning. Denies nausea or vomiting. Afebrile. Objective - Vital Signs Vital signs: Vital Signs Temp 98.3 F 11/27/16 07:00 Pulse 86 11/27/16 07:00 Resp 16 11/27/16 07:00 BP 113/75 11/27/16 07:00 Pulse Ox 93 L 11/27/16 07:00 Intake & Output 11/26/16 11/27/16 11/27/16 18:59 06:59 18:59 Intake Total 2220 Balance 2220 Intake: Oral 2220 Other: Voiding Method Toilet Toilet Toilet Urinal Urinal # Voids 2 3 - Exam GENERAL: Pt awake and alert, sitting on side of bed, thin appearing, in no acute distress. LUNGS: Breath sounds clear to auscultation bilaterally. No wheezes, rales, or rhonchi. HEART: Heart S1, S2, no S3 or S4. Regular rate and rhythm. No murmurs, rubs or gallops. ABDOMEN: Soft, mild right upper quadrant and left upper quadrant tenderness, nondistended, normoactive bowel sounds. No guarding, no rebound. No masses or organomegaly appreciated. - Labs CBC & Chem 7: 11/26/16 06:42 11/27/16 07:02 Labs: Abnormal Lab Results - Last 24 Hours (Table) 11/27/16 Range/Units 07:02 Glucose 111 H (74-99) mg/dL Assessment and Plan Plan: Impression: 1. Elevated liver enzymes, present on admission, improving. CT of abdomen and pelvis with evidence of fatty liver infiltrate. 2. Frequent diarrhea, C. difficile negative. 3. History of vomiting 1 month or more per patient. 4. Acute delirium, improved. Plan: 1. Will reorder HIDA scan, recommendations pending. The above impression and plan have been discussed and directed by Dr. Ott. Leonora GUTIERREZ acting as scribe for Dr. Ott.
--- NOTE | 2016-11-27 15:30 | NM ---
EXAMINATION TYPE: NM hepatobiliary w CCK DATE OF EXAM: 11/27/2016 2:41 PM COMPARISON: NONE HISTORY: Upper quadrant abdominal pain TECHNIQUE: After the intravenous administration of 5.39 mCi Tc 99m Mebrofenin hepatobiliary scintigra phy is performed. Immediate images post injection. FINDINGS: There is satisfactory initial accumulation of tracer by the liver. The gallbladder is visualized wit hin 20 minutes. The small bowel activity is noted within 50 minutes. At one hour CCK was administer ed, patient was injected with 1.4 mcg of Kinevac, and gallbladder ejection fraction is calculated at 91 . IMPRESSION: 1. No evidence of cholecystitis. 2. Ejection fraction of 91% can be seen occasionally with hyperdynamic gallbladder. Correlate clinica lly.
[2016-11-27] MEDS: NICOTINE 21MG/24HR PATCH TRANSDERM SCH (16:52)
--- NOTE | 2016-11-27 16:55 | P.PN ---
Progress Note - Text The patient's HIDA scan is abnormal. His ejection fraction is elevated at 91% consistent with biliary hyperkinesis. The patient may be considered for laparoscopic cholecystectomy once he is medically stable.
--- NOTE | 2016-11-27 18:48 | P.PN ---
Subjective Principal diagnosis: Seizure 56-year-old male who presents to [facility] is an outside transfer due to his seizures and concerns to status epilepticus. He was loaded with Dilantin and Ativan. In that had improvement. Upon approach the patient is not actively seizing. He however is a poor historian. Apparently he was having some difficulties with abdominal pain. It may not been taking his medications at home. It admission he did have difficulty with fever with at the infectious diseases consultation is requested. There was evidence of elevated liver function tests also. Upon questioning the patient does not have many complaints at this point in time. But again he is a poor historian. Patient is been less agitated today. Related that he has much less aggressive today. Objective - Vital Signs Vital signs: Vital Signs Temp 98.1 F 11/27/16 18:20 Pulse 65 11/27/16 18:20 Resp 16 11/27/16 18:20 BP 118/71 11/27/16 18:20 Pulse Ox 96 11/27/16 18:20 Intake & Output 11/26/16 11/27/16 11/27/16 18:59 06:59 18:59 Intake Total 2220 Balance 2220 Intake: Oral 2220 Other: Voiding Method Toilet Toilet Toilet Urinal Urinal # Voids 2 3 4 - Exam 56-year-old male appears about his stated age. Thin build. Temperature 102.2 at admission. HEENT: Anicteric conjunctiva are pink and moist nasal mucosa grossly intact without significant lesions, there is no thrush. Poor dentition Neck: The neck is supple without significant lymphadenopathy or thyromegaly. Lungs: Symmetrical air entry with expiratory wheezes but no anyi bronchial sounds Heart: Regular rate and rhythm with an audible S1-S2, no S3 no S4. There is no significant murmur click or rub, PMI was nondisplaced. Abdomen: Positive bowel sounds soft and nontender without palpable masses or organomegaly. There was no guarding or rebound. Extremities: The upper extremities have excellent pulses they are symmetric, no significant petechiae or telangiectasia. No splinter hemorrhages were noted. The lower extremities are free from significant edema. The peripheral pulses were 2+ and symmetric. Neuro: Awake alert oriented to person and place. Followed simple commands and moves the upper and lower extremities on command. - Labs CBC & Chem 7: 11/26/16 06:42 11/27/16 07:02 Labs: Abnormal Lab Results - Last 24 Hours (Table) 11/27/16 Range/Units 07:02 Glucose 111 H (74-99) mg/dL Laboratory Results WBC 8.0 k/uL (3.8-10.6) 11/26/16 06:42 RBC 3.96 m/uL (4.30-5.90) L 11/26/16 06:42 Hgb 13.3 gm/dL (13.0-17.5) 11/26/16 06:42 Hct 41.7 % (39.0-53.0) 11/26/16 06:42 MCV 105.4 fL (80.0-100.0) H 11/26/16 06:42 MCH 33.5 pg (25.0-35.0) 11/26/16 06:42 MCHC 31.8 g/dL (31.0-37.0) 11/26/16 06:42 RDW 13.6 % (11.5-15.5) 11/26/16 06:42 Plt Count 243 k/uL (150-450) 11/26/16 06:42 Neutrophils % 62 % 11/26/16 06:42 Lymphocytes % 21 % 11/26/16 06:42 Monocytes % 9 % 11/26/16 06:42 Eosinophils % 4 % 11/26/16 06:42 Basophils % 1 % 11/26/16 06:42 Neutrophils # 5.0 k/uL (1.3-7.7) 11/26/16 06:42 Lymphocytes # 1.7 k/uL (1.0-4.8) 11/26/16 06:42 Monocytes # 0.7 k/uL (0-1.0) 11/26/16 06:42 Eosinophils # 0.3 k/uL (0-0.7) 11/26/16 06:42 Basophils # 0.0 k/uL (0-0.2) 11/26/16 06:42 Macrocytosis Slight 11/26/16 06:42 Sodium 142 mmol/L (137-145) 11/27/16 07:02 Potassium 4.0 mmol/L (3.5-5.1) 11/27/16 07:02 Chloride 104 mmol/L (98-107) 11/27/16 07:02 Carbon Dioxide 26 mmol/L (22-30) 11/27/16 07:02 Anion Gap 12 mmol/L 11/27/16 07:02 BUN 14 mg/dL (9-20) 11/27/16 07:02 Creatinine 0.75 mg/dL (0.66-1.25) 11/27/16 07:02 Est GFR (MDRD) Af Amer >60 (>60 ml/min/1.73 sqM) 11/27/16 07:02 Est GFR (MDRD) Non-Af >60 (>60 ml/min/1.73 sqM) 11/27/16 07:02 Glucose 111 mg/dL (74-99) H 11/27/16 07:[address] Glu mg/dL 117 mg/dL 11/23/16 08:18 Hemoglobin A1c 5.7 % (4.2-6.1) 11/23/16 08:18 Plasma Lactic Acid Otis 0.6 mmol/L (0.7-2.0) L 11/23/16 08:18 Calcium 9.5 mg/dL (8.4-10.2) 11/27/16 07:02 Magnesium 1.8 mg/dL (1.6-2.3) 11/25/16 07:06 Total Bilirubin 0.6 mg/dL (0.2-1.3) 11/27/16 07:02 AST 46 U/L (17-59) 11/27/16 07:02 ALT 53 U/L (21-72) 11/27/16 07:02 Alkaline Phosphatase 106 U/L (38-126) 11/27/16 07:02 Ammonia <9 umol/L (<30) 11/24/16 10:29 Total Protein 7.0 g/dL (6.3-8.2) 11/27/16 07:02 Albumin 3.9 g/dL (3.5-5.0) 11/27/16 07:02 Amylase <30 U/L (30-110) L 11/23/16 08:18 Lipase 116 U/L (23-300) 11/23/16 08:18 Urine Color Yellow 11/23/16 01:21 Urine Appearance Clear (Clear) 11/23/16 01:21 Urine pH 8.0 (5.0-8.0) 11/23/16 01:21 Ur Specific [place] 1.025 (1.001-1.035) 11/23/16 01:21 Urine Protein 1+ (Negative) H 11/23/16 01:21 Urine Glucose (UA) Negative (Negative) 11/23/16 01:21 Urine Ketones 1+ (Negative) H 11/23/16 01:21 Urine Blood Negative (Negative) 11/23/16 01:21 Urine Nitrate Negative (Negative) 11/23/16 01:21 Urine Bilirubin Negative (Negative) 11/23/16 01:21 Urine Urobilinogen 6.0 mg/dL (<2.0) 11/23/16 01:21 Ur Leukocyte Esterase Negative (Negative) 11/23/16 01:21 Urine RBC 1 /hpf (0-5) 11/23/16 01:21 Urine WBC 1 /hpf (0-5) 11/23/16 01:21 Urine Mucus Rare /hpf (None) H 11/23/16 01:21 C. difficile (EIA) Intrp Negative (Negative) 11/23/16 18:13 Hepatitis A IgM Ab NEGATIVE 11/23/16 08:18 Hep Bs Antigen Negative 11/23/16 08:18 Hep B Core IgM Ab NEGATIVE 11/23/16 08:18 Hep C IgG Ab Negative (Negative) 11/23/16 08:18 Influenza Type A RNA Not Detected (Not Detectd) 11/22/16 23:44 Influenza Type B (PCR) Not Detected (Not Detectd) 11/22/16 23:44 Laboratory Results WBC 8.0 k/uL (3.8-10.6) 11/26/16 06:42 RBC 3.96 m/uL (4.30-5.90) L 11/26/16 06:42 Hgb 13.3 gm/dL (13.0-17.5) 11/26/16 06:42 Hct 41.7 % (39.0-53.0) 11/26/16 06:42 MCV 105.4 fL (80.0-100.0) H 11/26/16 06:42 MCH 33.5 pg (25.0-35.0) 11/26/16 06:42 MCHC 31.8 g/dL (31.0-37.0) 11/26/16 06:42 RDW 13.6 % (11.5-15.5) 11/26/16 06:42 Plt Count 243 k/uL (150-450) 11/26/16 06:42 Neutrophils % 62 % 11/26/16 06:42 Lymphocytes % 21 % 11/26/16 06:42 Monocytes % 9 % 11/26/16 06:42 Eosinophils % 4 % 11/26/16 06:42 Basophils % 1 % 11/26/16 06:42 Neutrophils # 5.0 k/uL (1.3-7.7) 11/26/16 06:42 Lymphocytes # 1.7 k/uL (1.0-4.8) 11/26/16 06:42 Monocytes # 0.7 k/uL (0-1.0) 11/26/16 06:42 Eosinophils # 0.3 k/uL (0-0.7) 11/26/16 06:42 Basophils # 0.0 k/uL (0-0.2) 11/26/16 06:42 Macrocytosis Slight 11/26/16 06:42 Sodium 142 mmol/L (137-145) 11/27/16 07:02 Potassium 4.0 mmol/L (3.5-5.1) 11/27/16 07:02 Chloride 104 mmol/L (98-107) 11/27/16 07:02 Carbon Dioxide 26 mmol/L (22-30) 11/27/16 07:02 Anion Gap 12 mmol/L 11/27/16 07:02 BUN 14 mg/dL (9-20) 11/27/16 07:02 Creatinine 0.75 mg/dL (0.66-1.25) 11/27/16 07:02 Est GFR (MDRD) Af Amer >60 (>60 ml/min/1.73 sqM) 11/27/16 07:02 Est GFR (MDRD) Non-Af >60 (>60 ml/min/1.73 sqM) 11/27/16 07:02 Glucose 111 mg/dL (74-99) H 11/27/16 07:[address] Glu mg/dL 117 mg/dL 11/23/16 08:18 Hemoglobin A1c 5.7 % (4.2-6.1) 11/23/16 08:18 Plasma Lactic Acid Otis 0.6 mmol/L (0.7-2.0) L 11/23/16 08:18 Calcium 9.5 mg/dL (8.4-10.2) 11/27/16 07:02 Magnesium 1.8 mg/dL (1.6-2.3) 11/25/16 07:06 Total Bilirubin 0.6 mg/dL (0.2-1.3) 11/27/16 07:02 AST 46 U/L (17-59) 11/27/16 07:02 ALT 53 U/L (21-72) 11/27/16 07:02 Alkaline Phosphatase 106 U/L (38-126) 11/27/16 07:02 Ammonia <9 umol/L (<30) 11/24/16 10:29 Total Protein 7.0 g/dL (6.3-8.2) 11/27/16 07:02 Albumin 3.9 g/dL (3.5-5.0) 11/27/16 07:02 Amylase <30 U/L (30-110) L 11/23/16 08:18 Lipase 116 U/L (23-300) 11/23/16 08:18 Urine Color Yellow 11/23/16 01:21 Urine Appearance Clear (Clear) 11/23/16 01:21 Urine pH 8.0 (5.0-8.0) 11/23/16 01:21 Ur Specific [place] 1.025 (1.001-1.035) 11/23/16 01:21 Urine Protein 1+ (Negative) H 11/23/16 01:21 Urine Glucose (UA) Negative (Negative) 11/23/16 01:21 Urine Ketones 1+ (Negative) H 11/23/16 01:21 Urine Blood Negative (Negative) 11/23/16 01:21 Urine Nitrate Negative (Negative) 11/23/16 01:21 Urine Bilirubin Negative (Negative) 11/23/16 01:21 Urine Urobilinogen 6.0 mg/dL (<2.0) 11/23/16 01:21 Ur Leukocyte Esterase Negative (Negative) 11/23/16 01:21 Urine RBC 1 /hpf (0-5) 11/23/16 01:21 Urine WBC 1 /hpf (0-5) 02/25/17 01:21 Urine Mucus Rare /hpf (None) H 11/23/16 01:21 C. difficile (EIA) Intrp Negative (Negative) 11/23/16 18:13 Hepatitis A IgM Ab NEGATIVE 11/23/16 08:18 Hep Bs Antigen Negative 11/23/16 08:18 Hep B Core IgM Ab NEGATIVE 11/23/16 08:18 Hep C IgG Ab Negative (Negative) 11/23/16 08:18 Influenza Type A RNA Not Detected (Not Detectd) 11/22/16 23:44 Influenza Type B (PCR) Not Detected (Not Detectd) 11/22/16 23:44 Assessment and Plan (1) Fever Narrative/Plan: 56-year-old male with a history of a seizure disorder. Potential alcohol abuse presents to our facility with evidence of seizure. This is no undercontrol with loading of Dilantin and some Ativan. The patient does have a fever that has now resolved. Fever is not an unusual manifestation of seizure. Patient has been seen by surgery because of complaints of abdominal pain. The patient does have evidence of an abnormal liver on his ultrasound. He has changed further since his November 2014 exam. Surgical evaluation in process. We'll obtain baseline hepatitis status. At this time does not appear to have underlying infection that is bacterial in nature and would not need antibiotic therapy Fevers have resolved. As he improved his health will need follow-up with his biliary tract, abnormal biliary scan. Seen by general surgery. When medically stable cholecystectomy likely will be done. No evidence of acute hepatitis. Status: Acute (2) Seizure Status: Acute
[2016-11-28] MEDS: LORazepam 1 MG TAB PO PRN ×2 (02:54→08:31)
[2016-11-28] MEDS: PANTOPRAZOLE 40 MG TABLET PO SCH (08:30)
[2016-11-28 08:31] VITALS: BP 119/82; PULSE 80; RESP 16; TEMP 98.2
[2016-11-28] MEDS: PHENYTOIN SODIUM EXTENDED 100 MG CAP PO SCH (08:31)
[2016-11-28] MEDS: NICOTINE 21MG/24HR PATCH TRANSDERM SCH (08:31)
[2016-11-28 09:28] LABS: ALT 41 U/L (21-72); AST 34 U/L (17-59); Alkaline Phosphatase 90 U/L (38-126); Anion Gap 11 mmol/L; Blood Urea Nitrogen 15 mg/dL (9-20); Calcium 9.2 mg/dL (8.4-10.2); Carbon Dioxide 26 mmol/L (22-30); Chloride 104 mmol/L (98-107); Glucose 161 mg/dL (74-99); Non-African American GFR(MDRD) >60 (>60 ml/min/1.73 sqM); Potassium 4.2 mmol/L (3.5-5.1); Sodium 141 mmol/L (137-145); Total Bilirubin 0.7 mg/dL (0.2-1.3); Total Protein 6.9 g/dL (6.3-8.2)
--- NOTE | 2016-11-28 11:54 | P.PN ---
Subjective 56-year-old male being seen this morning on rounds currently has a sitter at the bedside did note patient received Ativan 2 mg oral at 8:30 this morning last Haldol was on November 26 less Valium was yesterday at 7:30. Patient is asking for Ativan Valium prescriptions when being discharged. Patient states he doesn't drink alcohol and does not do drugs. Less agitated compared to prior assessment when questioning patient continues to report having abdominal discomfort which he states has been ongoing for the past several months did review the labs total bili 0.7 AST is normal 34 ALT 41 alk phos 90 electrolytes within normal limits patient's HIDA scan results reviewed no evidence of cholecystitis it did show a hyperdynamic gallbladder with an EF of 91 percent surgical service indicates they will address the gallbladder issue with the patient is medically stable. Patient is to be seen by the mental health service this morning for recommendations Objective - Vital Signs Vital signs: Vital Signs Temp 98.2 F 11/28/16 07:00 Pulse 80 11/28/16 07:00 Resp 16 11/28/16 07:00 BP 119/82 11/28/16 07:00 Pulse Ox 94 L 11/28/16 07:00 Intake & Output 11/27/16 11/28/16 11/28/16 18:59 06:59 18:59 Output Total 600 Balance -600 Weight 71.6 kg Output: Urine 600 Other: Voiding Method Toilet Toilet Toilet # Voids 4 2 - Exam Physical exam 56-year-old gentleman sitting on the edge of the bed looking older than stated age cooperative no aggressive behavior patient is asking for a prescription for Xanax Ativan Valium when I go home I'll need these Lungs essentially clear on room air no cough noted Heart S1-S2 audible irregular Abdomen soft nontender flat not able to elicit any facial grimacing with palpitation to the abdominal wall reports having abdominal discomfort is been no document nausea vomiting or stooling Reportedly tolerating diet bowel tones active no document frequent stool no document emesis noted Extremities thin muscle wasting skin tattoos noted to the forearms no edema - Labs CBC & Chem 7: 11/26/16 06:42 11/28/16 08:52 Labs: Abnormal Lab Results - Last 24 Hours (Table) 11/28/16 Range/Units 08:52 Glucose 161 H (74-99) mg/dL Assessment and Plan Plan: Impression Present on admission elevated liver enzymes trending down improving Present on admission right upper quadrant abdominal pain with an ultrasound of the abdomen showing no evidence of gallbladder disease Transfer from [facility] status post epilepticus Current every day smoker suspect COPD undiagnosed History of a seizure disorder noncompliant with medication and follow-up quit taking Dilantin several months prior Present on admission febrile resolved influenza A and B not detected History of frequent stools with C. 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 History of depression and anxiety nonspecified bipolar disorder not ruled out Sedative hypnotic abuse and dependence History of alcoholism and dependence Ultrasound of the abdomen hepatomegaly suspect hepatic steatosis or other nonspecific hepatocellular disease CT of the abdomen and pelvis with contrast shows no acute findings present on admission hypokalemia corrected resolving Aggressive behavior consistent with a delirium likely due to multiple etiologies including withdrawal from sedative/hypnotics Episodes of visual and auditory hallucinations resolving suspect due to withdraw from sedative hypnotics HIDA scan November 27 hyperdynamic gallbladder EF 91% no evidence of cholecystitis Plan Continue sitter at the bedside mental health service recommends stopping the Valium Continue the nicotine patch at 14 MGs daily continue recommendations by neurology currently on Dilantin 200 twice a day Continue recommendations by psychiatric service defer to Further recommendations pending will follow floor service worker spring to pursue the discharge plan patient may benefit from admission to [facility] to the psychiatrist to address psych meds whether to continue the Valium Haldol and Ativan The above dictated assessment and findings were discussed with Dr. Aguero. Impression and the plan of care have been dictated as directed. Shanae Squires nurse practitioner acting as a scribe for Dr. Aguero.
[2016-11-28] MEDS: THIAMINE 100 MG TAB PO SCH (12:41)
--- NOTE | 2016-11-28 14:01 | P.DS ---
Providers Date of admission: 11/23/16 01:56 Expected date of discharge: 11/28/16 Attending physician: Chas Braxton Consults: 11/23/16 07:53 Consult Physician Routine Consulting Provider: Jose Francisco Consult Reason/Comments: fever Do you want consulting provider notified?: Yes 11/23/16 08:02 Consult Physician Routine Consulting Provider: Bennett Sinha Consult Reason/Comments: emesis x 1 month/high lft Do you want consulting provider notified?: Yes 11/23/16 14:33 Consult Physician Routine Consulting Provider: Chas Loving Consult Reason/Comments: fever Do you want consulting provider notified?: Already Contacted 11/24/16 10:18 Consult Physician Routine Consulting Provider: Chas Galeana Consult Reason/Comments: AMS Do you want consulting provider notified?: Already Contacted 11/25/16 16:26 Consult Physician Urgent Consulting Provider: Chas Galeana Consult Reason/Comments: Re-see regarding AMS, agitation, verbally abusive with staff and girlfriend Do you want consulting provider notified?: Already Contacted Primary care physician: Chas Braxton [facility] Course: 56-year-old male patient who was transferred from [facility] the patient was being seen at the facility for new-onset seizure with acute new onset confusion at [facility] [place] the patient did receive 1 g of Dilantin and 4 mg of Ativan. According to the emergency room departmentat [facility] the patient did not stop seizing. Subsequently the patient was transferred to [facility]. Patient was not able to give any adequate health history there was no family with the patient. no prior medical record in the computer. Patient was transferred to [place] emergency room department evaluated and treated for status epilepsy. During the hospitalization the patient was followed by multiple consulting physicians recommendations noted appreciated and initiated. Patient was not able to identify his PCP. Patient was assigned to Dr. Braxton at [facility] [place] for city call coverage. Patient was seen by neurology service Dr. Beckford. Patient apparently had stopped taking his Dilantin at home for the past several months he been without it. Patient states he was told he had a seizure disorder. Neurology recommended restarting the Dilantin home dose. Patient was instructed to not stop taking the Dilantin. Patient thought his last seizure was approximately a year ago. Patient did have an EEG. and A CAT scan of the brain which studies were negative patient was advised state law he could not drive for at least 6 months in which the patient was able to verbalize an understanding. Neurology indicate no further workup Infectious disease consultation on admission was requested Dr. Loving did see patient on consultation. The temp on arrival was 102.2there was concern that the patient's confusion could be contributed to an infectious processhepatitis panel was negative. Blood and urine culture were negative patient does not appear to have an underlying infection that is bacterial in nature and would not need any antibiotics. Patient additionally was seen by surgical service Dr. sinha for the elevated liver studies. Patient did undergo a HIDA scan which showed a hyperdynamic gallbladder with a EF 91percent. There was no evidence of cholecystitisthe liver enzymes continued to trend down. The surgeon to discuss with the patient that the patient could be seen next week in the office and they will discuss addressing the gallbladder patient probably would need a cholecystectomy to be done Psychiatric consultation was requested patient did develop an episode of aggressive combative behavior and at one point needed to manage the aggression with security representative sitter at the bedside and 4 point restrain's to be applied for the agitation with aggressive behavior the mental health service did see the patient which recommendations were initiated. Patient's presentation per the mental health was felt to be consistent with a delirium rather than a primary psychotic illness likely due to multiple etiologies including withdrawal from sedative hypnotics. Patient's combative and aggressive behavior improved and on the day of discharge the restraints were off patient was ambulatory on the unit and was cooperative. Patient continued to ask for prescription for Xanax or Ativan. Additionally the patient was seen by the social media manager who did indicate the patient stated he was not interested in any information regarding addiction such as alcohol or substance abuse he stated he did not have issues with alcohol or substance abuse. According to the patient he lived in [facility] and lives with his girlfriend. Patient did agree to follow-up with the surgeon next week in the office to talk about possible lap cholecystectomy needing to be done question patient about his use of alcoholism or substance abuse issues patient will state he doesn't drink alcohol or use drugs then he'll laugh then ask for juan alberto Patient was felt to be appropriate to proceed with a discharge to home from all consulting physicians Impression discharge diagnoses Present on admission elevated liver enzymes trending down improving Present on admission right upper quadrant abdominal pain with an ultrasound of the abdomen likely due to hyperdynamic gallbladder Transfer from [facility] status post epilepticus suspect due to not taking Dilantin for the last several months Current every day smoker suspect COPD undiagnosed History of a seizure disorder noncompliant with medication and follow-up quit taking Dilantin several months prior Present on admission febrile resolved suspect due to withdraw from sedative hypnotics with a influenza A and B not detected History of frequent stools with C. 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 History of depression and anxiety nonspecified bipolar disorder not ruled out Sedative hypnotic abuse and dependence History of alcoholism and dependence Ultrasound of the abdomen hepatomegaly suspect hepatic steatosis or other nonspecific hepatocellular disease CT of the abdomen and pelvis with contrast shows no acute findings present on admission hypokalemia corrected resolving Aggressive behavior consistent with a delirium likely due to multiple etiologies including withdrawal from sedative/hypnotics Episodes of visual and auditory hallucinations resolving suspect due to withdraw from sedative hypnotics HIDA scan November 27 hyperdynamic gallbladder EF 91% no evidence of cholecystitis The above dictated assessment and findings were discussed with dr braxton . Impression and the plan of care have been dictated as directed. Shanae Squires nurse practitioner acting as a scribe for dr braxton Plan - Discharge Summary New Discharge Prescriptions: Pantoprazole [Protonix] 40 mg PO AC-BRKFST #30 tablet. Phenytoin Sodium Extended [Dilantin] 200 mg PO BID #60 cap Discharge Medication List Pantoprazole [Protonix] 40 mg PO AC-BRKFST #30 tablet. 11/28/16 [Rx] Phenytoin Sodium Extended [Dilantin] 200 mg PO BID #60 cap 11/28/16 [Rx] Follow up Appointment(s)/Referral(s): Chas Braxton MD [Primary Care Provider] - 1-2 days Bennett Sinha MD [STAFF PHYSICIAN] - 1 Week Discharge Disposition: HOME SELF-CARE
[2016-11-28] MEDS ORDERED: LORazepam 1 MG TAB PO STA (14:39)
--- NOTE | 2016-11-28 14:43 | P.CN ---
Psychiatric Consult - . Consult date: 11/28/16 Consult:: SUBJECTIVE: I reviewed the medical record and interviewed Mr. Hightower. He presented to medicine service on 11/23/2016 with diagnosis of status epilepticus. I evaluated him on 11/23/2016 he was confused, restless, inattentive and experiencing visual hallucinations consistent with an acute delirium. His overall condition began to improve beginning to 11/24/2016. He became much less agitated and confused. He did not require continued use of physical restraint. He cooperated with medical care and posed no further management or behavioral problems. During our interview he denied problems or concerns. Her remembered speaking with me but has little recollection of our conversation. He did not remember that he believes that people were hiding under his bed or that he was speaking to people who were not present. He denied feeling depressed or anxious. She denied suicidal ideation. He denied feelings of hopelessness or helplessness. OBJECTIVE: He presented as a casually groomed 56-year-old male who looked older than his stated age. He was pleasant on approach and maintained eye contact. He had no distinguishing features or prominent physical abnormalities. He had a bright facial expression. He was alert and oriented to person and place. He showed no abnormality of psychomotor activity. He had no abnormal involuntary movements. His speech was spontaneous with normal rate, rhythm and volume. He had no articulation difficulties. His affect was bright , stable and appropriate. He denied suicidal ideation or wishes. He denied homicidal ideation. He denied depressive cognitions such as hopelessness , helplessness and worthlessness. He did not express phobias, ideas reference or paranoid ideation. His thinking was concrete but his associations were coherent and logical. He denied hallucinations and did not appear to be responding to internal stimuli. We completed the [facility] Orientation Memory and Concentration test. His total weighted error score was 21; a weighted error score greater than 10 is consistent with a dementia. He knew the year but thought the month (he thought the month was October ). He was able to repeat the memory phrase "Chas West, [address] [place] [address]". He estimated the current time correctly within 1 hour of the actual time. He was able to count backwards from 20-1. He made several errors when attempting to name the months of the year in reverse order ( beginning with August). He could not recall any element of the memory phrase. ASSESSMENT: The signs and symptoms of the acute delirium has resolved. However , he shows impairments of concentration, attention and immediate recall on mental status testing. The difficulties with his performance may be a consequence of the delirium but the possibility of a cognitive disorder such as dementia cannot be ruled out. PLAN: Discontinue haloperidol and lorazepam. He does not require outpatient mental health treatment or transfer to the psychiatric unit at this time. His primary physician should perform sequential formal mental status tests to determine if the changes observed resolve over time or represents a permanent impairment in cognitive functioning. Thank you for this consult. 11/28/16 14:29
--- NOTE | 2016-11-28 16:12 | P.PN ---
Subjective Principal diagnosis: Abdominal pain Patient is a 56-year-old white male consulted for increased liver enzymes and persistent vomiting for more than a month. Ultrasound with no evidence of gallbladder disease. CT of abdomen and pelvis with evidence of fatty hepatic infiltration, otherwise no acute process to account for patient's symptoms. HIDA scan with evidence of biliary hyperkinesia with an EF of 91%. Patient is feeling better. Patient reports improvement of abdominal pain. Denies nausea or vomiting. Denies diarrhea. Tolerating diet. Objective - Vital Signs Vital signs: Vital Signs Temp 98.2 F 11/28/16 07:00 Pulse 80 11/28/16 07:00 Resp 16 11/28/16 07:00 BP 119/82 11/28/16 07:00 Pulse Ox 94 L 11/28/16 07:00 Intake & Output 11/27/16 11/28/16 11/28/16 18:59 06:59 18:59 Output Total 600 Balance -600 Weight 71.6 kg Output: Urine 600 Other: Voiding Method Toilet Toilet Toilet # Voids 4 2 4 - Exam GENERAL: Pt awake and alert, sitting on side of bed, thin appearing, in no acute distress. LUNGS: Breath sounds clear to auscultation bilaterally. No wheezes, rales, or rhonchi. HEART: Heart S1, S2, no S3 or S4. Regular rate and rhythm. No murmurs, rubs or gallops. ABDOMEN: Soft, mild right upper quadrant and left upper quadrant tenderness, nondistended, normoactive bowel sounds. No guarding, no rebound. No masses or organomegaly appreciated. - Labs CBC & Chem 7: 11/26/16 06:42 11/28/16 08:52 Labs: Abnormal Lab Results - Last 24 Hours (Table) 11/28/16 Range/Units 08:52 Glucose 161 H (74-99) mg/dL Assessment and Plan Plan: Impression: 1. Elevated liver enzymes, present on admission, improving. CT of abdomen and pelvis with evidence of fatty liver infiltrate. 2. Frequent diarrhea, C. difficile negative. 3. History of vomiting 1 month or more per patient. 4. Acute delirium, resolved. 5. Biliary hyperkinesia. Ejection fraction 91% without evidence of cholecystitis. Plan: 1. Patient will need cholecystectomy in the outpatient setting when medically stable. Patient will follow-up with Dr. Ott in the office in 1 week after discharge. The above impression and plan have been discussed and directed by Dr. Ott. Leonora GUTIERREZ acting as scribe for Dr. Ott.
== END 2016-11-28 15:20 | disposition home or self-care (01) | DRG 100 ==
LOC: EC 22:57 → 5MS5E 11-23 01:56
PROVIDERS: ADMIT Family Medicine; ATTEND Family Medicine
PROC: HZ2ZZZZ Detoxification Services for Substance Abuse Treatment (ICD-10-PCS; principal; 2016-11-23)
DX: G40.901 Epilepsy, unspecified, not intractable, with status epilepticus (principal); G92 Toxic encephalopathy; R64 Cachexia; R16.0 Hepatomegaly, not elsewhere classified; Z78.1 Physical restraint status; F13.231 Sedative, hypnotic or anxiolytic dependence with withdrawal delirium; R44.0 Auditory hallucinations; F10.20 Alcohol dependence, uncomplicated; F13.24 Sedative, hypnotic or anxiolytic dependence with sedative, hypnotic or anxiolytic-induced mood disorder; F41.9 Anxiety disorder, unspecified; K76.0 Fatty (change of) liver, not elsewhere classified; J44.9 Chronic obstructive pulmonary disease, unspecified; F31.9 Bipolar disorder, unspecified; E87.6 Hypokalemia; G89.29 Other chronic pain; T42.0X6A Underdosing of hydantoin derivatives, initial encounter; F17.200 Nicotine dependence, unspecified, uncomplicated; G47.00 Insomnia, unspecified; M54.9 Dorsalgia, unspecified; R44.1 Visual hallucinations; F19.14 Other psychoactive substance abuse with psychoactive substance-induced mood disorder; K82.8 Other specified diseases of gallbladder; R50.9 Fever, unspecified; R10.10 Upper abdominal pain, unspecified; R11.2 Nausea with vomiting, unspecified; K52.9 Noninfective gastroenteritis and colitis, unspecified; M62.50 Muscle wasting and atrophy, not elsewhere classified, unspecified site; M47.819 Spondylosis without myelopathy or radiculopathy, site unspecified; M19.91 Primary osteoarthritis, unspecified site; R74.8 Abnormal levels of other serum enzymes; Z88.5 Allergy status to narcotic agent; Z80.1 Family history of malignant neoplasm of trachea, bronchus and lung; Z71.51 Drug abuse counseling and surveillance of drug abuser; Z56.0 Unemployment, unspecified; Z81.8 Family history of other mental and behavioral disorders; Z91.5 Personal history of self-harm; Z91.14 Patient's other noncompliance with medication regimen; Z91.19 Patient's noncompliance with other medical treatment and regimen
CPT/HCPCS: 36415; 70450; 71020; 74177; 76700; 78227; 80053; 80074; 81001; 82140; 82150; 83036; 83605; 83690; 83735; 85025; 87324; 87502; 95819; 96361; 96365; 96367; 99285

== ENCOUNTER 2017-01-21 16:30 | Emergency (ER) | payer OTHER ==
--- NOTE | 2017-01-21 16:53 | ED ---
Seizure HPI - General Chief Complaint: Seizure Stated Complaint: Seizure Time Seen by Provider: 01/21/17 16:45 Source: patient, EMS Mode of arrival: EMS Limitations: no limitations - Related Data Home Medications Medication Instructions Recorded Confirmed Multivitamins, Thera [Multivitamin 1 tab PO DAILY 01/21/17 01/21/17 (formulary)] Previous Rx's Medication Instructions Recorded Phenytoin Sodium Extended 200 mg PO BID #60 cap 11/28/16 [Dilantin] Phenytoin Sodium Extended 100 mg PO TID #45 capsule 01/21/17 [Dilantin] Allergies Allergy/AdvReac Type Severity Reaction Status Date / Time codeine AdvReac Itching Verified 01/21/17 16:58 Review of Systems ROS Statement: Those systems with pertinent positive or pertinent negative responses have been documented in the HPI. ROS Other: All systems not noted in ROS Statement are negative. Past Medical History Past Medical History: Liver Disease, Seizure Disorder Additional Past Medical History / Comment(s): 12/02/14 Pt was admiited to [facility] on 12/01/14 but was unable to provide any reliable health hx. [employer] contacted by ICU staff today and was able to contact pt's primary doctor for some health hx and also was able to speak now with pt. Pt presented to [facility] ER yesterday evening via EMS with altered mental status. Originally they were called for siezure but according to their records the pt was found with Alered mental status and did not appear post dictal. The EMS record also notes that a empty bottle of ambien was found near the pt. In ER pt's conversation made no sense. Pt tested positive for benzo's in the ER. Other HX: Pt's medical record from Dr. Mccartney's office state pt has liver failure, back pain anxiety and depression and tobacco abuse disorder, and that ptis not drinking as much as he was prev., L forearm laceration repair, arthiritis in back and arms. Pt states he started having seizures 1 1/2 months ago and last had a seizure on 12/01/14. He states he has these seizures pretty much daily. History of Any Multi-Drug Resistant Organisms: None Reported Past Surgical History: Unable to Obtain Additional Past Surgical History / Comment(s): Tooth extraction with anesthesia Past Anesthesia/Blood Transfusion Reactions: Unable to Obtain Additional Past Anesthesia/Blood Transfusion Reaction / Comment(s): Pt has never had surgery. Past Psychological History: Anxiety, Depression Additional Psychological History / Comment(s): Pt has hx of taking xanax for anxiety and ambien for insomnia. Pt lives with a very good friend named Elena. Pt is normally independent. Pt states he might have been a heavy drinker when he was a teenager. Positive tobacco use. Did not relate to current recreational drug use. No experience. Does not work outside of the home. Did not confirm animal exposures Smoking Status: Current every day smoker Past Alcohol Use History: Daily Additional Past Alcohol Use History / Comment(s): per pt fiance on 11/24/16 pt drinks 5 beers/day with last being 2 days before admission Past Drug Use History: None Reported - Past Family History Mother Family Medical History: Cancer Additional Family Medical History / Comment(s): Mother is . She had lung cancer. General Exam Limitations: no limitations Course Vital Signs 01/21/17 01/21/17 16:35 18:04 Temperature 98.8 F Pulse Rate 89 95 Respiratory 18 16 Rate Blood Pressure 156/115 170/77 O2 Sat by Pulse 92 L 98 Oximetry Medical Decision Making - Lab Data Result diagrams: 01/21/17 16:45 01/21/17 16:45 Lab Results 01/21/17 01/21/17 01/21/17 Range/Units 16:45 16:45 16:45 WBC 7.1 (3.8-10.6) k/uL RBC 3.82 L (4.30-5.90) m/uL Hgb 13.7 (13.0-17.5) gm/dL Hct 39.9 (39.0-53.0) % MCV 104.5 H (80.0-100.0) fL MCH 35.8 H (25.0-35.0) pg MCHC 34.2 (31.0-37.0) g/dL RDW 14.2 (11.5-15.5) % Plt Count 162 (150-450) k/uL Neutrophils % 88 % Lymphocytes % 5 % Monocytes % 5 % Eosinophils % 1 % Basophils % 0 % Neutrophils # 6.2 (1.3-7.7) k/uL Lymphocytes # 0.4 L (1.0-4.8) k/uL Monocytes # 0.4 (0-1.0) k/uL Eosinophils # 0.0 (0-0.7) k/uL Basophils # 0.0 (0-0.2) k/uL Macrocytosis Slight Sodium 133 L (137-145) mmol/L Potassium 3.8 (3.5-5.1) mmol/L Chloride 90 L (98-107) mmol/L Carbon Dioxide 29 (22-30) mmol/L Anion Gap 14 mmol/L BUN 18 (9-20) mg/dL Creatinine 0.44 L (0.66-1.25) mg/dL Est GFR (MDRD) Af Amer >60 (>60 ml/min/1.73 sqM) Est GFR (MDRD) Non-Af >60 (>60 ml/min/1.73 sqM) Glucose 181 H (74-99) mg/dL Calcium 9.3 (8.4-10.2) mg/dL Total Bilirubin 1.0 (0.2-1.3) mg/dL AST 53 (17-59) U/L ALT 39 (21-72) U/L Alkaline Phosphatase 87 (38-126) U/L Total Protein 7.6 (6.3-8.2) g/dL Albumin 4.5 (3.5-5.0) g/dL Phenytoin 4.1 ug/mL Serum Alcohol <10 mg/dL - EKG Data -: EKG Interpreted by Ia EKG shows normal: sinus rhythm, axis (Normal), intervals (Normal), QRS complexes (Q waves lead V2, suggestive possible old septal infarct), ST-T waves (Normal) Rate: normal (Rate 83 bpm) Disposition Clinical Impression: Seizure Disposition: HOME SELF-CARE Condition: Good Instructions: Recurrent Seizures in Adults (ED) Prescriptions: Phenytoin Sodium Extended [Dilantin] 100 mg PO TID #45 capsule Referrals: Chas Aguero MD [Primary Care Provider] - 1-2 days
[2017-01-21 17:11] LABS: Basophils % (A) 0 %; CH 36.5; Eosinophils % (A) 1 %; HCT 39.9 % (39.0-53.0); HDW 2.24; HGB 13.7 gm/dL (13.0-17.5); Luc % (Auto) 1; Lymphocytes # (A) 0.4 k/uL (1.0-4.8); Lymphocytes % (A) 5 %; MCH 35.8 pg (25.0-35.0); MCHC 34.2 g/dL (31.0-37.0); MCV 104.5 fL (80.0-100.0); Macrocytosis Slight; Mean Platelet Volume 7.9; Monocytes # (A) 0.4 k/uL (0-1.0); Monocytes % (A) 5 %; Neutrophils # (A) 6.2 k/uL (1.3-7.7); Neutrophils % (A) 88 %; RBC 3.82 m/uL (4.30-5.90); RDW 14.2 % (11.5-15.5); WBC 7.1 k/uL (3.8-10.6); WBC (Perox) 7.15
[2017-01-21 17:13] LABS: ALT 39 U/L (21-72); AST 53 U/L (17-59); Alcohol <10 mg/dL; Alkaline Phosphatase 87 U/L (38-126); Anion Gap 14 mmol/L; Blood Urea Nitrogen 18 mg/dL (9-20); Calcium 9.3 mg/dL (8.4-10.2); Carbon Dioxide 29 mmol/L (22-30); Chloride 90 mmol/L (98-107); Glucose 181 mg/dL (74-99); Non-African American GFR(MDRD) >60 (>60 ml/min/1.73 sqM); Potassium 3.8 mmol/L (3.5-5.1); Sodium 133 mmol/L (137-145); Total Protein 7.6 g/dL (6.3-8.2)
--- NOTE | 2017-01-21 17:19 | CT ---
EXAMINATION TYPE: CT brain lilia wo con DATE OF EXAM: 01/21/2017 5:13 PM COMPARISON: 11/23/2016 HISTORY: Fall today post seizure CT DLP: 1393.[address] of the brain was performed. The ventricles, basal cisterns and sulci overlying the cerebral convexities demonstrate enlargement. There is no evidence for intracranial hemorrhage or sulcal effacement. There is decreased attenuatio n about the periventricular white matter and deep white matter of both cerebral hemispheres, compatib le with chronic small vessel ischemia. No mass effects are seen. If symptoms persist consider MRI. Osseous calvarium is intact. Posterior parietal scalp hematoma is noted. Severe maxillary sinus chron ic sinusitis. IMPRESSION: 1. Age related atrophic and chronic small vessel ischemic change without acute intracranial process seen at this time. CT Cervical Spine: Unenhanced CT of the cervical spine was performed with bone and soft tissue window settings submitted . Coronal and sagittal reconstruction is obtained. There is normal alignment and prevertebral soft tissues. No evidence for acute cervical fracture . Scattered degenerative disc disease and spondylosis. Biapical scarring. IMPRESSION: 1. No evidence for acute fracture or subluxation of the cervical spine.
[2017-01-21] MEDS ORDERED: HYDROcodone/APAP 5-325MG 1 EACH TAB PO STA (17:24)
[2017-01-21] MEDS ORDERED: IBUPROFEN 600 MG TAB PO STA (17:24)
[2017-01-21 18:05] VITALS: RESP 16
[2017-01-21] MEDS ORDERED: PHENYTOIN SODIUM EXTENDED 100 MG CAP PO STA (18:39)
[2017-01-21 19:17] VITALS: BP 119/76; PULSE 86; TEMP 97.9
== END 2017-01-21 19:16 | disposition home or self-care (01) ==
LOC: EC 16:30
DX: R56.9 Unspecified convulsions (principal); F17.200 Nicotine dependence, unspecified, uncomplicated; Z79.899 Other long term (current) drug therapy; Z88.5 Allergy status to narcotic agent
CPT/HCPCS: 36415; 70450; 72125; 80053; 80185; 80320; 85025; 93005; 99284

== ENCOUNTER 2017-01-21 19:52 | Observation (INO) | payer OTHER ==
[~2017-01-21 19:52] MED LIST: THIAMINE 100 MG TAB PO SCH
[2017-01-21] MEDS ORDERED: LORazepam 2 MG/ML SYRINGE IV STA (19:54)
[2017-01-21] MEDS ORDERED: PHENYTOIN SODIUM INJ 500 MG in SODIUM CHLORIDE 0.9% 100 ML IVPB STA (19:59)
[2017-01-21] MEDS ORDERED: MORPHINE SULFATE 4 MG/ML SYRINGE IV STA (20:55)
[2017-01-21] MEDS ORDERED: ONDANSETRON 4 MG/2 ML VIAL IVP PRN (20:56)
[2017-01-21] MEDS ORDERED: NALOXONE 0.4 MG/ML 1 ML VIAL IV PRN (20:56)
[2017-01-21] MEDS ORDERED: ACETAMINOPHEN TAB 325 MG TAB PO PRN (20:56)
--- NOTE | 2017-01-21 21:00 | ED ---
Seizure HPI - General Chief Complaint: Seizure Stated Complaint: SEIZURE Time Seen by Provider: 01/21/17 19:54 Source: RN/MD Mode of arrival: wheelchair Limitations: no limitations - History of Present Illness Initial Comments: This patient is 56-year-old man who is seen here for second time today following a seizure. The patient had initially been brought in after he had a seizure outside a convenience store. His Dilantin level was found to be low, and this was supplemented and he was discharged. As he was leaving here he had another seizure while he was crossing to the waiting room of the hospital. Currently the patient has no new complaints. MD Complaint: seizure -: minutes(s) Description of Episode: loss of consciousness, tonic-clonic movement -: second(s) Witnessed: yes - by bystander Trauma: No Seizure History: known seizure disorder Place: other (At the hospital) Possible Precipitating Event: none Associated Symptoms: denies other symptoms Treatments Prior to Arrival: none - Related Data Home Medications Medication Instructions Recorded Confirmed Multivitamins, Thera [Multivitamin 1 tab PO DAILY 01/21/17 01/21/17 (formulary)] Previous Rx's Medication Instructions Recorded Phenytoin Sodium Extended 200 mg PO BID #60 cap 11/28/16 [Dilantin] Phenytoin Sodium Extended 100 mg PO TID #45 capsule 01/21/17 [Dilantin] traMADol HCl [Ultram] 50 mg PO Q6H PRN #20 tab 01/21/17 Allergies Allergy/AdvReac Type Severity Reaction Status Date / Time codeine AdvReac Itching Verified 01/21/17 20:00 Review of Systems ROS Statement: Those systems with pertinent positive or pertinent negative responses have been documented in the HPI. ROS Other: All systems not noted in ROS Statement are negative. Constitutional: Denies: fever, weakness Eyes: Denies: vision change Respiratory: Denies: cough, dyspnea Cardiovascular: Denies: chest pain, orthopnea Gastrointestinal: Denies: abdominal pain, vomiting, diarrhea Genitourinary: Denies: dysuria, hematuria Musculoskeletal: Reports: other (Neck pain). Denies: back pain Skin: Denies: rash Neurological: Denies: headache, weakness, numbness, paresthesias Past Medical History Past Medical History: Liver Disease, Seizure Disorder Additional Past Medical History / Comment(s): 12/02/14 Pt was admiited to [facility] on 12/01/14 but was unable to provide any reliable health hx. [employer] contacted by ICU staff today and was able to contact pt's primary doctor for some health hx and also was able to speak now with pt. Pt presented to [facility] ER yesterday evening via EMS with altered mental status. Originally they were called for siezure but according to their records the pt was found with Alered mental status and did not appear post dictal. The EMS record also notes that a empty bottle of ambien was found near the pt. In ER pt's conversation made no sense. Pt tested positive for benzo's in the ER. Other HX: Pt's medical record from Dr. Mccartney's office state pt has liver failure, back pain anxiety and depression and tobacco abuse disorder, and that ptis not drinking as much as he was prev., L forearm laceration repair, arthiritis in back and arms. Pt states he started having seizures 1 1/2 months ago and last had a seizure on 12/01/14. He states he has these seizures pretty much daily. History of Any Multi-Drug Resistant Organisms: None Reported Past Surgical History: Unable to Obtain Additional Past Surgical History / Comment(s): Tooth extraction with anesthesia Past Anesthesia/Blood Transfusion Reactions: Unable to Obtain Additional Past Anesthesia/Blood Transfusion Reaction / Comment(s): Pt has never had surgery. Past Psychological History: Anxiety, Depression Additional Psychological History / Comment(s): Pt has hx of taking xanax for anxiety and ambien for insomnia. Pt lives with a very good friend named Elena. Pt is normally independent. Pt states he might have been a heavy drinker when he was a teenager. Positive tobacco use. Did not relate to current recreational drug use. No experience. Does not work outside of the home. Did not confirm animal exposures Smoking Status: Current every day smoker Past Alcohol Use History: Daily Additional Past Alcohol Use History / Comment(s): per pt fiance on 11/24/16 pt drinks 5 beers/day with last being 2 days before admission Past Drug Use History: None Reported - Past Family History Mother Family Medical History: Cancer Additional Family Medical History / Comment(s): Mother is . She had lung cancer. General Exam Limitations: no limitations General appearance: alert, in no apparent distress Head exam: Present: atraumatic, normocephalic Eye exam: Present: normal appearance, PERRL, EOMI. Absent: scleral icterus, conjunctival injection, nystagmus ENT exam: Present: mucous membranes dry Neck exam: Present: normal inspection, tenderness (The patient does have bilateral paraspinal muscle tenderness), full ROM. Absent: meningismus Respiratory exam: Present: wheezes (Trace end expiratory wheeze). Absent: normal lung sounds bilaterally, respiratory distress, rales, rhonchi, stridor, chest wall tenderness Cardiovascular Exam: Present: normal rhythm, tachycardia (Rate approximately 104 bpm of my exam), normal heart sounds. Absent: systolic murmur, diastolic murmur, rubs, gallop GI/Abdominal exam: Present: soft. Absent: distended, tenderness, guarding, rebound, mass Extremities exam: Present: normal inspection, normal capillary refill. Absent: pedal edema, calf tenderness Back exam: Present: normal inspection. Absent: CVA tenderness (R), CVA tenderness (L), paraspinal tenderness, vertebral tenderness Neurological exam: Present: alert, oriented X3, CN II-XII intact, normal gait, other (Patient does have mild tremor). Absent: motor sensory deficit Skin exam: Present: warm, dry, intact, normal color. Absent: rash Course Vital Signs 01/21/17 01/21/17 19:54 20:21 Temperature 97.9 F Pulse Rate 105 H 98 Respiratory 16 18 Rate Blood Pressure 174/97 163/91 O2 Sat by Pulse 99 99 Oximetry Disposition Clinical Impression: Seizure Disposition: ADMITTED IP TO THIS [facility] Condition: Fair Referrals: Chas Aguero MD [Primary Care Provider] - 1-2 days
[2017-01-21] MEDS ORDERED: LORazepam 2 MG/ML SYRINGE IV PRN (21:20)
[2017-01-21] MEDS ORDERED: THIAMINE 100 MG/ML 2 ML VIAL IM STA (22:21)
[2017-01-21] MEDS: SODIUM CHLORIDE 0.9% 1,000 ML IV SCH (22:33)
[2017-01-21] MEDS ORDERED: PHENYTOIN SODIUM EXTENDED 100 MG CAP PO ONE (23:01)
[2017-01-21] MEDS: PHENYTOIN SODIUM EXTENDED 100 MG CAP PO SCH (23:03)
[2017-01-21 23:13] VITALS: BMI 24.3
[2017-01-21] MEDS: HYDROcodone/APAP 5-325MG 1 EACH TAB PO PRN (23:19)
[2017-01-22] MEDS: FAMOTIDINE 20 MG TAB PO SCH ×3 (00:24→22:10)
[2017-01-22] MEDS: HYDROcodone/APAP 5-325MG 1 EACH TAB PO PRN ×3 (02:39→23:20)
[2017-01-22] MEDS: LORazepam 2 MG/ML SYRINGE IV PRN ×6 (04:00→22:06)
[2017-01-22] MEDS: PHENYTOIN SODIUM EXTENDED 100 MG CAP PO SCH ×3 (07:29→22:09)
[2017-01-22 08:51] LABS: Basophils % (A) 0 %; CH 35.8; CHCM 34.5; Eosinophils # (A) 0.1 k/uL (0-0.7); Eosinophils % (A) 2 %; HCT 42.3 % (39.0-53.0); HDW 2.24; HGB 14.4 gm/dL (13.0-17.5); Luc # (Auto) 0.12; Luc % (Auto) 2; Lymphocytes # (A) 0.7 k/uL (1.0-4.8); Lymphocytes % (A) 14 %; MCH 35.5 pg (25.0-35.0); MCHC 34.1 g/dL (31.0-37.0); Macrocytosis Slight; Mean Platelet Volume 7.7; Monocytes # (A) 0.5 k/uL (0-1.0); Monocytes % (A) 10 %; Neutrophils # (A) 3.8 k/uL (1.3-7.7); Neutrophils % (A) 72 %; RBC 4.07 m/uL (4.30-5.90); RDW 13.9 % (11.5-15.5); WBC 5.2 k/uL (3.8-10.6); WBC (Perox) 5.51
[2017-01-22 09:40] LABS: Anion Gap 15 mmol/L; Blood Urea Nitrogen 18 mg/dL (9-20); Calcium 9.5 mg/dL (8.4-10.2); Carbon Dioxide 27 mmol/L (22-30); Chloride 91 mmol/L (98-107); Glucose 139 mg/dL (74-99); Non-African American GFR(MDRD) >60 (>60 ml/min/1.73 sqM); Potassium 3.5 mmol/L (3.5-5.1); Sodium 133 mmol/L (137-145)
--- NOTE | 2017-01-22 10:59 | HP ---
DATE OF ADMISSION: CHIEF COMPLAINT: Uncontrolled seizures. HISTORY OF PRESENT ILLNESS: This is 56-year-old white male who came to the ER twice for a seizure, subtherapeutic on Dilantin. Had a seizure in the ER, a seizure outside a convenience store. He was leaving after being discharged from the ER and he had a seizure in the waiting room at which time he was being admitted to the hospital. He lost consciousness, tonic-clonic movements with by a bystander. Multivitamins. He states he has been missing some of Dilantin pills, not taking them at home. Allergies are CODEINE. REVIEW OF SYSTEMS: The 14 points are negative except for as mentioned in the HPI. PAST MEDICAL HISTORY: Liver disease, seizure disorder, noncompliance, history of liver failure, back pain, anxiety, depression, nicotine addiction, arthritis, tooth extractions, anxiety, depression. He drinks 5 beers a day. FAMILY HISTORY: Mother with cancer. Mother is from lung cancer, thin and cachectic. CARDIOVASCULAR: S1, S2. Lungs are clear. GI is distended to possible fluid wave and ascitic wave. Lungs show mild wheeze. No rales or rhonchi. HEMATOLOGIC: Negative Homans. OPHTHALMOLOGIC: Pupils equal, round and react to light and accommodation. NEUROLOGIC: Cranial nerves are intact. Temp 97.9, pulse is 90s to 100s, respirations 16 to 18, blood pressure is 160s to 170s/90s. ASSESSMENT: 1. Acute seizure, status epilepticus. 2. Chronic obstructive pulmonary disease. 3. Liver failure. 4. Alcoholism. Please see further orders, alcohol CIWA protocol.
[2017-01-22] MEDS: MULTIVITAMINS, THERA 1 EACH TAB PO SCH (11:31)
[2017-01-22] MEDS: THIAMINE 100 MG TAB PO SCH ×2 (11:31→18:47)
--- NOTE | 2017-01-22 20:34 | P.CNNES ---
History of Present Illness Consult date: 01/22/17 History of Present Illness: The patient is a 56-year-old man with history of seizure disorder. The patient was admitted to the hospital with breakthrough seizure. The patient is history of noncompliance with his medications. He also denies drinking alcohol however family member apparently reported that he does consume alcohol. The patient had a witnessed tonic-clonic seizure in the waiting room at the emergency room and he was admitted for further evaluation. The patient had Dilantin level that was subtherapeutic and he was given a load of Dilantin in the emergency room. His Dilantin level today was 22. The patient has a history of liver disease according to the record. Patient himself is unaware. Review of Systems ROS unobtainable: due to mental status Past Medical History Past Medical History: Liver Disease, Seizure Disorder Additional Past Medical History / Comment(s): patient not sure if he has liver disease History of Any Multi-Drug Resistant Organisms: None Reported Past Surgical History: No Surgical Hx Reported Additional Past Surgical History / Comment(s): Tooth extraction with anesthesia Past Anesthesia/Blood Transfusion Reactions: Unable to Obtain Additional Past Anesthesia/Blood Transfusion Reaction / Comment(s): Pt has never had surgery. Past Psychological History: Anxiety, Depression Additional Psychological History / Comment(s): Pt has hx of taking xanax for anxiety and ambien for insomnia. Pt lives with a very good friend named Elena. Pt is normally independent. Pt states he might have been a heavy drinker when he was a teenager. Positive tobacco use. Did not relate to current recreational drug use. No experience. Does not work outside of the home. Did not confirm animal exposures Smoking Status: Current every day smoker Past Alcohol Use History: Daily Additional Past Alcohol Use History / Comment(s): patient denies alcohol use Past Drug Use History: None Reported Additional Drug Use History / Comment(s): pt denies drug use - Past Family History Mother Family Medical History: Unable to Obtain Additional Family Medical History / Comment(s): Mother is . She had lung cancer. Medications and Allergies Home Medications Medication Instructions Recorded Confirmed Type Multivitamins, Thera [Multivitamin 1 tab PO DAILY 01/21/17 01/21/17 History (formulary)] Allergies Allergy/AdvReac Type Severity Reaction Status Date / Time codeine AdvReac Itching Verified 01/21/17 20:00 Physical Examination - Vital Signs Vital Signs: Vital Signs Temp Pulse Resp BP Pulse Ox 01/22/17 18:12 98.5 F 74 16 150/89 95 01/22/17 14:00 98 F 90 18 150/86 96 01/22/17 07:00 98.5 F 88 18 154/85 93 L 01/22/17 02:08 97.1 F L 94 18 170/87 93 L 01/22/17 00:00 91 01/21/17 22:45 95.6 F L 91 18 170/84 90 L Intake and Output 01/22/17 01/22/17 01/22/17 06:59 14:59 22:59 Intake Total 140 640 480 Output Total 220 Balance -80 640 480 Intake: IV 140 160 Sodium Chloride 0.9% 1, 140 160 000 ml @ 20 mls/hr IV . Q24H EMILIE Rx#:[id number] Oral 480 480 Output: Urine 220 Other: Voiding Method Toilet # Voids 2 - Constitutional General appearance: average body habitus - EENT EENT: PERRL, hearing intact, vision intact - Respiratory Respiratory: lungs clear - Cardiovascular Cardiovascular: regular rate - Integumentary Integumentary: normal - Neurologic Cranial nerve examination: PERRL, EOMI, VFF, V1/V2/V3 grossly intact, face symmetric, tongue midline Speech examination: intact Detailed motor examination: grossly full strength in all extremities Reflex and gait examination: ataxic gate Cerebellar examination: ataxia - Psychiatric Psychiatric: no agitated, cooperative Results - Laboratory Findings CBC and BMP: 01/22/17 08:10 01/22/17 08:10 Abnormal Lab Findings: Abnormal Labs 01/22/17 01/22/17 08:10 08:10 RBC 4.07 L MCV 104.0 H MCH 35.5 H Lymphocytes # 0.7 L Sodium 133 L Chloride 91 L Creatinine 0.56 L Glucose 139 H Phenytoin 22.6 H* Assessment and Plan (1) Seizure Status: Acute Code(s): R56.9 - UNSPECIFIED CONVULSIONS (2) Altered mental status Status: Acute Code(s): R41.82 - ALTERED MENTAL STATUS, UNSPECIFIED (3) Ataxia Status: Acute Code(s): R27.0 - ATAXIA, UNSPECIFIED Plan: The patient is a 56-year-old man with history of seizure disorder. He also has been admitted with some altered mental status. It is unclear whether this was post ictal or whether he has some baseline cognitive problems. The patient has been restless and eager to leave the hospital. The patient has been loaded with Dilantin and down this was done in the emergency room because he had recurrent breakthrough seizures. Plan is to switch him to Keppra in the view of his liver disease. He will be started on Keppra and gradually tapered off of Dilantin. We'll also do CT brain and EEG. Also recommend discontinue tramadol as this can induce seizures
--- NOTE | 2017-01-22 21:17 | CT ---
EXAMINATION TYPE: CT brain wo con DATE OF EXAM: 01/22/2017 9:06 PM COMPARISON: 01/21/2017 INDICATION: Altered mental status. DLP: 976.10 mGycm, Automated exposure control for dose reduction was used. CONTRAST: None CT of the brain is performed utilizing 3 mm thick sections through the posterior fossa and 3 mm thick sections through the remaining calvarium. Study is not performed within 24 hours of arrival to the hospital. No abnormal hyperdensity is present to suggest an acute intracranial hemorrhage. No mass lesion is evident. No acute infarcts are evident. Ventricles and sulci are appropriate for the patient age. There is opacification of the left maxillary sinus. Mild mucosal thickening is scattered within ethmo id air cells bilaterally. Remaining paranasal sinuses and mastoid air cells are clear. IMPRESSIONS: 1. No acute intracranial process.
[2017-01-22] MEDS: SODIUM CHLORIDE 0.9% 1,000 ML IV SCH (22:04)
[2017-01-22] MEDS: levETIRAcetam IV 750 MG in SODIUM CHLORIDE 0.9% 100 ML IVPB SCH (22:09)
[2017-01-23] MEDS: LORazepam 2 MG/ML SYRINGE IV PRN ×10 (00:38→22:04)
[2017-01-23] MEDS: HYDROcodone/APAP 5-325MG 1 EACH TAB PO PRN ×3 (06:18→20:42)
[2017-01-23] MEDS: PHENYTOIN SODIUM EXTENDED 100 MG CAP PO SCH ×3 (08:46→20:46)
[2017-01-23] MEDS: FAMOTIDINE 20 MG TAB PO SCH ×2 (08:46→20:46)
[2017-01-23] MEDS: levETIRAcetam IV 750 MG in SODIUM CHLORIDE 0.9% 100 ML IVPB SCH (08:46)
[2017-01-23] MEDS: THIAMINE 100 MG TAB PO SCH ×2 (11:59→17:53)
[2017-01-23] MEDS: MULTIVITAMINS, THERA 1 EACH TAB PO SCH ×2 (11:59→12:00)
[2017-01-23] MEDS ORDERED: HALOPERIDOL LACTATE 5 MG/ML 1 ML VIAL IM PRN (14:12)
--- NOTE | 2017-01-23 14:25 | P.CN ---
Psychiatric Consult - . Consult date: 01/23/17 Consult:: IDENTIFYING DATA: Mr. Mendoza is a 56-year-old male who has a history of a seizure disorder. He presented to the ER after he had a seizure outside of a convenience store. He had a seizure while in the ER. He had another seizure as he was leaving the ER at which time he was admitted to the medicine unit. According to medical record he lost consciousness and had tonic-clonic movements. Medicine consult to psychiatry for evaluation of change in mental status. HISTORY OF PRESENT ILLNESS: He was unable to provide a coherent history. He stated he always has seizures and could not understand why he was "here". He did not recognize that he was in the hospital. During the interview he abruptly stood up and stated that he "needs to smoke." When I told him that he could not smoke in the hospital he replied "this is a hospital?" He alleged that he has a secret closet where he hides cigarettes. His gait was unsteady and he was not redirectable. Once he was outside his home he talked about needing to speak with his mother. After 5 minutes we were able to redirect him back to his room. He is on the CIWA protocol and received a total of 3 mg of lorazepam today. PSYCHIATRIC HISTORY: I was unable to obtain a coherent psychiatric history SUBSTANCE USE HISTORY: According to the record he has a history of an alcohol use. His serum alcohol level on presentation to the ER was less than 10. SOCIAL HISTORY: He was to obtain a coherent social history. MENTAL STATUS EXAM: He appeared as a thin and disheveled 56-year-old male was restless and confused. That he was in the hospital, the name of hospital, month , date or year. He made eye contact but did not appear to attend to the interview. He attempted to walk out of his room ignoring the IV pole. He displayed no abnormal involuntary movements. His speech was not spontaneous. His affect was labile. His thinking was concrete and grossly disorganized. He did not appear to be responding to internal stimuli. He was oriented to person only. He does not recognize that he was in the hospital. He did not know the date, month or year. IMPRESSIONS: Delirium most likely secondary to uncontrolled seizure disorder, rule out alcohol use disorder, rule out alcohol withdrawal delirium PLAN: Continue CIWA protocol as written. Haldol 5 mg IM every 6 hours when necessary for agitation. He is not appropriate for the psychiatric unit due to the uncontrolled seizure disorder and delirium. Will follow. 01/23/17 14:13
[2017-01-23] MEDS: levETIRAcetam IV 1,000 MG in SALINE 1 100ML.BAG IVPB SCH (20:36)
[2017-01-23] MEDS: SODIUM CHLORIDE 0.9% 1,000 ML IV SCH (20:47)
--- NOTE | 2017-01-23 22:21 | P.PN ---
Subjective Principal diagnosis: Seizure disorder The patient is a 56-year-old man with history of alcohol abuse and seizure disorder. The patient was admitted to the hospital for breakthrough seizure. Rarely the patient is noncompliant at home with his medications. The patient is of slightly better today. He is able to say that he has at [facility]. During pain medication for his chronic neck pain. Not had any further breakthrough seizures in the hospital. EEG which was unremarkable. Objective - Vital Signs Vital signs: Vital Signs Temp 98.5 F 01/23/17 20:00 Pulse 101 H 01/23/17 20:00 Resp 18 01/23/17 20:00 BP 158/97 01/23/17 20:00 Pulse Ox 93 L 01/23/17 20:00 Intake & Output 01/23/17 01/23/17 01/24/17 06:59 18:59 06:59 Intake Total 580 1260 Balance 580 1260 Intake: IV 40 80 Sodium Chloride 0.9% 1, 40 80 000 ml @ 20 mls/hr IV . Q24H EMILIE Rx#:[id number] Intake, IV Titration 100 Amount levETIRAcetam IV 750 mg 100 In Sodium Chloride 0.9% 100 ml @ 400 mls/hr IVPB Q12HR EMILIE Rx#:[id number] Oral 540 1080 Other: Voiding Method Toilet Toilet Diaper # Voids 1 2 - EENT Eyes: Present: EOMI ENT: Present: hearing grossly normal - Neurologic Neurologic Comment(s): A logic exam mental status he was awake he was alert he followed some simple commands he was oriented to person but did not know the date or year he was aware he was at [facility] Cranial nerves II-12 are grossly intact Motor examination revealed no focal weakness Gait he was slightly still unsteady - Labs CBC & Chem 7: 01/22/17 08:10 01/22/17 08:10 Assessment and Plan (1) Seizure Status: Acute Code(s): R56.9 - UNSPECIFIED CONVULSIONS (2) Altered mental status Status: Acute Code(s): R41.82 - ALTERED MENTAL STATUS, UNSPECIFIED (3) Ataxia Status: Acute Code(s): R27.0 - ATAXIA, UNSPECIFIED Plan: The patient is less agitated today. He is still confused. He is oriented to person and place. There has been no breakthrough seizures during his hospital stay. He is being taken off of Dilantin and has been started on Keppra because of history of liver problems past. His EEG was unremarkable
[2017-01-24] MEDS: LORazepam 2 MG/ML SYRINGE IV PRN ×3 (00:09→09:00)
[2017-01-24] MEDS: HYDROcodone/APAP 5-325MG 1 EACH TAB PO PRN ×4 (04:30→21:16)
[2017-01-24] MEDS: levETIRAcetam IV 1,000 MG in SALINE 1 100ML.BAG IVPB SCH ×2 (08:51→20:27)
[2017-01-24] MEDS: FAMOTIDINE 20 MG TAB PO SCH ×2 (08:56→20:27)
[2017-01-24] MEDS: PHENYTOIN SODIUM EXTENDED 100 MG CAP PO SCH ×2 (08:56→20:27)
--- NOTE | 2017-01-24 09:58 | XR ---
EXAMINATION TYPE: XR cervical spine limited DATE OF EXAM: 01/24/2017 9:18 AM COMPARISON: NONE HISTORY: Neck pain TECHNIQUE: 3 views are submitted. FINDINGS: The odontoid is intact. There are no compression deformities. The prevertebral soft tissue structur es are within normal limits. Severe degenerative disc disease C5-6 and C6-C7 with posterior spondylo sis. Facet arthropathy C3-T1. IMPRESSION: 1. Multilevel severe degenerative disc disease.
--- NOTE | 2017-01-24 11:07 | PN ---
SUBJECTIVE: A 56-year-old white male with delirium and dementia. Altered mental status due to alcohol withdrawal. He is to get off Dilantin due to liver problems in the past. He is started on Depakote for seizures. CARDIOVASCULAR: S1 and S2. LUNGS: Clear. PSYCH: Alert and oriented x2. Gait is unstable. ASSESSMENT: 1. Alcohol withdrawal. 2. Metabolic encephalopathy. 3. Delirium. 4. Alcoholism. Continue with current treatments. PRIYA protocol. Randy. Psychiatry saw him and neurology saw him. Please see further consults.
--- NOTE | 2017-01-24 11:14 | EEG ---
DATE OF SERVICE: 01/23/2017 INDICATIONS FOR EXAMINATION: This patient is a 56 -year-old male admitted for breakthrough seizures. AGE: 56Y EEG FINDINGS: A routine 21 channel awake EEG recording was accomplished utilizing the 10-20 international system with bipolar and referential montages. The background activity in the most alert resting state consists of a low to medium amplitude, fairly well developed and well sustained, 7-8 Hz activity over the posterior head regions. This posterior rhythm attenuates to eye opening. There is a small amount of low amplitude 18-20 Hz beta activity seen maximally over the anterior head regions. Muscle and movement artifact was observed on several occasions during the tracing. Hyperventilation was not performed. Photic stimulation at flash frequencies of 2-30 Hz produced a minimal occipital driving response. No epileptiform discharges were seen. IMPRESSION: This EEG is normal for the patient's age. The EEG failed to reveal any focal, lateralized or epileptiform abnormalities. Clinical correlation is recommended.
[2017-01-24] MEDS: MULTIVITAMINS, THERA 1 EACH TAB PO SCH (13:20)
[2017-01-24] MEDS: THIAMINE 100 MG TAB PO SCH ×2 (13:20→17:13)
--- NOTE | 2017-01-24 16:44 | P.CNOR ---
History of Present Illness - [facility] Consult date: 01/24/17 Requesting physician: Chas Aguero Consult reason: other (Cevical pain) History of present illness: Patient is a pleasant 56-year-old male who is examined at the bedside for further evaluation after we where consulted after he started to experience increased cervical pain status post seizure. Patient states he's been having seizures for approximately 2 months for no apparent reason. Since that time he' s had significant difficulty with concentration and memory. He is confused. He states today he thought he was at home but once he was woken up by myself, he states he realizes he is at the Hospital. The lights were turned on during physical examination. Upon leaving the room I asked the patient if he would like to have the lights turned off and he stated he did not even know they were turned on. He states cognitive function has been an issue for him. He currently denies any upper extremity radiculopathy or weakness bilaterally. He states his pain is most significant in the posterior cervical spine and over the left SCM muscle. He is currently being seen and examined by neurology. Past Medical History Past Medical History: Liver Disease, Seizure Disorder Additional Past Medical History / Comment(s): patient not sure if he has liver disease History of Any Multi-Drug Resistant Organisms: None Reported Past Surgical History: No Surgical Hx Reported Additional Past Surgical History / Comment(s): Tooth extraction with anesthesia Past Anesthesia/Blood Transfusion Reactions: Unable to Obtain Additional Past Anesthesia/Blood Transfusion Reaction / Comm: Pt has never had surgery. Past Psychological History: Anxiety, Depression Additional Psychological History / Comment(s): Pt has hx of taking xanax for anxiety and ambien for insomnia. Pt lives with a very good friend named Elena. Pt is normally independent. Pt states he might have been a heavy drinker when he was a teenager. Positive tobacco use. Did not relate to current recreational drug use. No experience. Does not work outside of the home. Did not confirm animal exposures Smoking Status: Current every day smoker Past Alcohol Use History: Daily Additional Past Alcohol Use History / Comment(s): patient denies alcohol use Past Drug Use History: None Reported Additional Drug Use History / Comment(s): pt denies drug use - Past Family History Mother Family Medical History: Unable to Obtain Additional Family Medical History / Comment(s): Mother is . She had lung cancer. Medications and Allergies Home Medications Medication Instructions Recorded Confirmed Type Multivitamins, Thera [Multivitamin 1 tab PO DAILY 01/21/17 01/21/17 History (formulary)] Allergies Allergy/AdvReac Type Severity Reaction Status Date / Time codeine AdvReac Itching Verified 01/21/17 20:00 Physical Examination Physical exam: Patient is awake, alert, and oriented 3 Vital signs stable Good chest excursion with deep inspiration and expiration Abdomen soft nontender Examination of the cervical spine reveals skin is intact with no abrasions, lacerations, or bruises; no erythema, purulence or signs of infection Evidence of bruising and some swelling of the posterior cervical spine at approximately C7 No significant pain with palpation of the posterior cervical spine and over all portions of the cervical spine Full range of motion of the cervical spine with adequate flexion, extension, and bilateral rotation but movements are slow Remelt Operator strength, thumb strength, interosseous strength, biceps strength, triceps strength, and shoulder strength positive sustained bilaterally Positive Vail's Sign Bilaterally No Hyperreflexia Upper extremity strength 5/5 bilaterally No signs or symptoms of DVT; no calf pain Results X-rays of the cervical spine: C5-6 and C6-7 degenerative disc disease; overall alignment appears be adequately maintained; no evidence of fracture or dislocation - Labs Result Diagrams: 01/22/17 08:10 01/22/17 08:10 Assessment and Plan (1) Cervical pain (neck) Status: Acute (2) Degenerative disc disease, cervical Status: Acute (3) Cervical myofascial strain Status: Acute (4) Seizure Status: Acute (5) Altered mental status Status: Acute Plan: Assessment: Status post multiple seizures Confusion and difficulty with memory and concentration Cervical pain Cervical degenerative disc disease C5-6 and C6-7 Cervical myofascial strain Plan: 1. After further reviewing of the imaging, further discussion with Dr. Faheem Santos, and physical examination of the patient, we'll currently planned to obtain a soft cervical collar for the patient. He may wear this brace for comfort support as needed in regards to his cervical spine. He does not appear to have any acute fractures or acute change of the cervical spine. He does have degenerative disc disease at C5-6 and C6-7. He is not currently experiencing any upper extremity radiculopathy or weakness. His symptoms are most likely stemming from myofascial strain following his recent seizure. He was not experiencing significant cervical pain prior to his latest seizure. At this time, we'll continue with conservative treatment. We will plan to see him in the outpatient setting for further evaluation and treatment. If his symptoms not improving with time, we may plan to obtain an MRI of the cervical spine for further evaluation. At this time, we discussed in detail he would benefit from continued evaluation and workup by neurology. He may participate in activities as tolerated in regards to his cervical spine. 2. Neurology to continue following the patient for further treatment and evaluation for his cognitive difficulties and multiple seizures 3. Once his soft cervical collar has been delivered and fitted appropriately, patient will be clear for discharge from an orthopedic spine standpoint 4. Following discharge, patient may follow-up with Aureliano Peralta PA-C or Dr. Faheem Santos at [facility] in approximately 2-3 weeks for further evaluation 5. I have discussed this patient in detail with Dr. Faheem Santos he agrees with this plan Time with Patient: Greater than 30
[2017-01-25] MEDS: HYDROcodone/APAP 5-325MG 1 EACH TAB PO PRN ×5 (01:22→21:04)
[2017-01-25] MEDS: SODIUM CHLORIDE 0.9% 1,000 ML IV SCH ×2 (01:23→22:02)
[2017-01-25] MEDS: FAMOTIDINE 20 MG TAB PO SCH ×2 (07:34→19:54)
[2017-01-25] MEDS: levETIRAcetam IV 1,000 MG in SALINE 1 100ML.BAG IVPB SCH ×2 (07:34→20:51)
[2017-01-25] MEDS ORDERED: PHENYTOIN SODIUM EXTENDED 100 MG CAP PO SCH (09:00)
[2017-01-25] MEDS: THIAMINE 100 MG TAB PO SCH ×2 (09:32→16:51)
[2017-01-25] MEDS: MULTIVITAMINS, THERA 1 EACH TAB PO SCH (09:32)
--- NOTE | 2017-01-25 09:50 | PN ---
DATE OF SERVICE: 01/24/2017 SUBJECTIVE: 56-year-old white male with multiple seizures, metabolic encephalopathy due to alcoholism, alcohol withdrawal and seizures. The patient has inability to ambulate. Waiting PT, OT to get him up and ambulate him. Otherwise rehab will be needed. VITAL SIGNS: Stable, afebrile. CARDIOVASCULAR: S1 and S2. LUNGS: Clear. GI: Soft. Mentation is fair. He gets a little confused. Ambulation is poor. ASSESSMENT: Metabolic encephalopathy suspect neuropathy and postictal from seizures. His seizure medicines have been readjusted. PT, OT is on the case. Possible discharge home in next 24 to 48 hours depending on ambulation.
[2017-01-25 11:41] LABS: Basophils % (A) 0 %; CH 36.3; CHCM 34.7; Eosinophils # (A) 0.5 k/uL (0-0.7); Eosinophils % (A) 6 %; HCT 37.5 % (39.0-53.0); HDW 2.53; HGB 12.8 gm/dL (13.0-17.5); Luc % (Auto) 3; Lymphocytes # (A) 1.2 k/uL (1.0-4.8); Lymphocytes % (A) 16 %; MCH 35.7 pg (25.0-35.0); MCHC 34.1 g/dL (31.0-37.0); MCV 104.8 fL (80.0-100.0); Macrocytosis Slight; Mean Platelet Volume 7.6; Monocytes # (A) 0.6 k/uL (0-1.0); Monocytes % (A) 7 %; Neutrophils # (A) 5.4 k/uL (1.3-7.7); Neutrophils % (A) 69 %; RBC 3.58 m/uL (4.30-5.90); RDW 13.7 % (11.5-15.5); WBC 7.9 k/uL (3.8-10.6); WBC (Perox) 8.05
[2017-01-25 11:55] LABS: ALT 47 U/L (21-72); AST 72 U/L (17-59); Alkaline Phosphatase 69 U/L (38-126); Anion Gap 7 mmol/L; Blood Urea Nitrogen 14 mg/dL (9-20); Calcium 9.3 mg/dL (8.4-10.2); Carbon Dioxide 31 mmol/L (22-30); Chloride 100 mmol/L (98-107); Glucose 87 mg/dL (74-99); Non-African American GFR(MDRD) >60 (>60 ml/min/1.73 sqM); Potassium 4.2 mmol/L (3.5-5.1); Sodium 138 mmol/L (137-145); Total Bilirubin 0.6 mg/dL (0.2-1.3); Total Protein 6.5 g/dL (6.3-8.2)
[2017-01-25] MEDS: amLODIPine 5 MG TAB PO SCH (14:21)
--- NOTE | 2017-01-25 17:32 | PN ---
SUBJECTIVE: This is a 56-year-old white male whose mental status is greatly improved. He told the nurse he was taking some kind of street drug which made him confused for the past 5 days. Amylase is improving. Seizure medication has been adjusted. Vital signs are stable. CARDIOVASCULAR: S1, S2. LUNGS: Clear. CONSTITUTIONAL: Generalized debility. PLAN: Continue with PT, OT today. Dilantin has been weaned down. Will continue with current treatment. Possibly discharge home in the next 24 to 48 hours if his mental status and gait improve.
[2017-01-25] MEDS: CALCIUM CARBONATE 500 MG CHEWABLE PO PRN (20:30)
[2017-01-25 20:42] LABS: Troponin I 0.033 ng/mL (0.000-0.034)
[2017-01-26] MEDS: LORazepam 2 MG/ML SYRINGE IV PRN (00:11)
[2017-01-26] MEDS: HYDROcodone/APAP 5-325MG 1 EACH TAB PO PRN ×6 (01:11→22:12)
[2017-01-26] MEDS: levETIRAcetam IV 1,000 MG in SALINE 1 100ML.BAG IVPB SCH (07:41)
[2017-01-26] MEDS: MULTIVITAMINS, THERA 1 EACH TAB PO SCH (07:41)
[2017-01-26] MEDS: FAMOTIDINE 20 MG TAB PO SCH ×2 (07:41→20:56)
[2017-01-26] MEDS: amLODIPine 5 MG TAB PO SCH (07:41)
[2017-01-26] MEDS: THIAMINE 100 MG TAB PO SCH ×2 (07:42→14:01)
[2017-01-26 07:57] LABS: Basophils % (A) 0 %; CH 35.7; CHCM 33.6; Eosinophils # (A) 0.5 k/uL (0-0.7); Eosinophils % (A) 6 %; HCT 41.1 % (39.0-53.0); HDW 2.39; HGB 13.5 gm/dL (13.0-17.5); Luc # (Auto) 0.28; Luc % (Auto) 3; Lymphocytes # (A) 1.7 k/uL (1.0-4.8); Lymphocytes % (A) 20 %; MCHC 32.8 g/dL (31.0-37.0); MCV 106.7 fL (80.0-100.0); Macrocytosis Moderate; Mean Platelet Volume 7.3; Monocytes # (A) 0.8 k/uL (0-1.0); Monocytes % (A) 10 %; Neutrophils % (A) 60 %; RBC 3.85 m/uL (4.30-5.90); WBC 8.3 k/uL (3.8-10.6); WBC (Perox) 8.43
[2017-01-26 08:16] LABS: ALT 47 U/L (21-72); AST 68 U/L (17-59); Alkaline Phosphatase 76 U/L (38-126); Anion Gap 11 mmol/L; Blood Urea Nitrogen 16 mg/dL (9-20); Calcium 9.8 mg/dL (8.4-10.2); Carbon Dioxide 28 mmol/L (22-30); Chloride 100 mmol/L (98-107); Glucose 89 mg/dL (74-99); Non-African American GFR(MDRD) >60 (>60 ml/min/1.73 sqM); Potassium 4.4 mmol/L (3.5-5.1); Sodium 139 mmol/L (137-145); Total Bilirubin 0.6 mg/dL (0.2-1.3); Total Protein 7.4 g/dL (6.3-8.2)
--- NOTE | 2017-01-26 14:37 | DS ---
DATE OF ADMISSION: 01/24/2017 DATE OF DISCHARGE: SUBJECTIVE: 56-year-old white male going through alcohol withdrawal, metabolic encephalopathy. He is more alert now. His balance is still off a little bit, but he wants to go home. Will increase his ( ). Discharge medications were switched for his seizures by Neurology. He was stabilized and went through alcohol withdrawal. Medicines will include: 1. Norvasc 5 mg daily for hypertension. 2. Levetiracetam 1000 b.i.d. Follow-up in the office in a week. CONDITION: Stable. PROGNOSIS: Guarded. Ambulate as tolerated.
[2017-01-26] MEDS: SODIUM CHLORIDE 0.9% 1,000 ML IV SCH (19:48)
[2017-01-26] MEDS: levETIRAcetam 500 MG TAB PO SCH (20:56)
[2017-01-27] MEDS: CALCIUM CARBONATE 500 MG CHEWABLE PO PRN (00:10)
[2017-01-27] MEDS: HYDROcodone/APAP 5-325MG 1 EACH TAB PO PRN ×4 (02:24→15:34)
[2017-01-27] MEDS: levETIRAcetam 500 MG TAB PO SCH (07:10)
[2017-01-27] MEDS: THIAMINE 100 MG TAB PO SCH ×2 (07:11→18:07)
[2017-01-27] MEDS: amLODIPine 5 MG TAB PO SCH (07:11)
[2017-01-27] MEDS: FAMOTIDINE 20 MG TAB PO SCH (07:11)
[2017-01-27 07:29] VITALS: RESP 16
[2017-01-27] MEDS: MULTIVITAMINS, THERA 1 EACH TAB PO SCH (11:45)
[2017-01-27 14:56] VITALS: BP 116/53; PULSE 80; TEMP 98.2
== END 2017-01-27 18:49 | disposition home or self-care (01) ==
LOC: EC 19:52 → 3SUR 20:56 → UNDOADMIN 20:56 → 3SUR 01-22 15:46 → INTOOBSV 01-24 11:10 → UNDOADMIN 01-24 11:10
PROVIDERS: ADMIT Family Medicine; ATTEND Family Medicine
DX: F10.239 Alcohol dependence with withdrawal, unspecified (principal); G40.901 Epilepsy, unspecified, not intractable, with status epilepticus; F41.9 Anxiety disorder, unspecified; F32.9 Major depressive disorder, single episode, unspecified; F17.200 Nicotine dependence, unspecified, uncomplicated; J44.9 Chronic obstructive pulmonary disease, unspecified; K72.90 Hepatic failure, unspecified without coma; M50.322 Other cervical disc degeneration at C5-C6 level; S16.1XXA Strain of muscle, fascia and tendon at neck level, initial encounter; Z79.899 Other long term (current) drug therapy; Z80.1 Family history of malignant neoplasm of trachea, bronchus and lung; Z88.5 Allergy status to narcotic agent; Z91.14 Patient's other noncompliance with medication regimen
CPT/HCPCS: 96375 ×3; 96365 ×2; 99285 ×2; 96366; 96367; 95819; 93005; 85379; 80053 ×2; 80048; 80177; 82550; 82553; 80185 ×3; 84450; 84460; 84484; 85025 ×3; 72040; 70450; G0378 ×5; J2060 ×5; J2270; J1165; J3411; J1953 ×6

== ENCOUNTER 2017-10-31 20:07 | Emergency (ER) | payer OTHER ==
--- NOTE | 2017-10-31 20:58 | CT ---
EXAMINATION TYPE: CT brain lilia zuñiga DATE OF EXAM: 10/31/2017 COMPARISON: 01/21/2017 HISTORY: Fall. ETOH CT DLP: 1460.6 mGycm Automated exposure control for dose reduction was used. TECHNIQUE: CT scan of the head and cervical spine are performed without contrast. FINDINGS: There is some cerebral cortical atrophy. There is no mass effect nor midline shift. There is no sign of intracranial hemorrhage. There is opacification of the left maxillary sinus. Cervical vertebra have normal alignment. There is narrowing of C5-6 and C6-7 disc spaces. There is po sterior disc herniation and spurring at C6-7 with resultant spinal stenosis on the right side worse t mott the left. I see no fracture. Skull base is intact. Facet joints are intact. IMPRESSION: Cerebral atrophy. Chronic left maxillary sinusitis. No change. Spondylosis in the lower cervical spine. C6-7 bony spinal stenosis. No change. No fracture.
--- NOTE | 2017-10-31 21:00 | XR ---
EXAMINATION TYPE: XR forearm RT DATE OF EXAM: 10/31/2017 COMPARISON: NONE HISTORY: Pain TECHNIQUE: 2 views FINDINGS: I see no fracture nor dislocation. Radius and ulna appear intact. IMPRESSION: Negative right forearm exam.
--- NOTE | 2017-10-31 22:21 | ED ---
General Adult HPI - General Chief complaint: Fall Stated complaint: Fall Time Seen by Provider: 10/31/17 20:11 Source: patient, RN notes reviewed, old records reviewed Mode of arrival: ambulatory Limitations: no limitations - History of Present Illness Initial comments: This is a 56-year-old male the ER for evaluation status post fall. Patient just before home. Positive EtOH. Patient is right hand injury. Unknown loss of consciousness. Patient's brought in by EMS. EMS, patient's . Patient' s symptoms complaining of right arm pain. No other complaints. - Related Data Home Medications Medication Instructions Recorded Confirmed Multivitamins, Thera [Multivitamin 1 tab PO DAILY 01/21/17 10/31/17 (formulary)] Previous Rx's Medication Instructions Recorded amLODIPine [Norvasc] 5 mg PO DAILY #30 tab 01/26/17 levETIRAcetam [Keppra] 1,000 mg PO Q12HR #60 tab 01/26/17 Allergies Allergy/AdvReac Type Severity Reaction Status Date / Time codeine AdvReac Itching Verified 10/31/17 21:06 Review of Systems ROS Statement: Those systems with pertinent positive or pertinent negative responses have been documented in the HPI. ROS Other: All systems not noted in ROS Statement are negative. Past Medical History Past Medical History: Liver Disease, Seizure Disorder Additional Past Medical History / Comment(s): patient not sure if he has liver disease History of Any Multi-Drug Resistant Organisms: None Reported Past Surgical History: No Surgical Hx Reported Additional Past Surgical History / Comment(s): Tooth extraction with anesthesia Past Anesthesia/Blood Transfusion Reactions: Unable to Obtain Additional Past Anesthesia/Blood Transfusion Reaction / Comment(s): Pt has never had surgery. Past Psychological History: Anxiety, Depression Smoking Status: Current every day smoker Past Alcohol Use History: Daily Past Drug Use History: None Reported - Past Family History Mother Family Medical History: Cancer Additional Family Medical History / Comment(s): Mother is . She had lung cancer. General Exam - General Exam Comments Initial Comments: Right forearm laceration, skin tear, 5 cm proximally, skin tear and punctured distally, angulated Limitations: no limitations General appearance: alert, in no apparent distress Head exam: Present: atraumatic, normocephalic, normal inspection Eye exam: Present: normal appearance, PERRL, EOMI. Absent: scleral icterus, conjunctival injection, periorbital swelling ENT exam: Present: normal exam, mucous membranes moist Neck exam: Present: normal inspection. Absent: tenderness, meningismus, lymphadenopathy Respiratory exam: Present: normal lung sounds bilaterally. Absent: respiratory distress, wheezes, rales, rhonchi, stridor Cardiovascular Exam: Present: regular rate, normal rhythm, normal heart sounds. Absent: systolic murmur, diastolic murmur, rubs, gallop, clicks GI/Abdominal exam: Present: soft, normal bowel sounds. Absent: distended, tenderness, guarding, rebound, rigid Extremities exam: Present: normal inspection, full ROM, normal capillary refill. Absent: tenderness, pedal edema, joint swelling, calf tenderness Back exam: Present: normal inspection Neurological exam: Present: alert, oriented X3, CN II-XII intact Psychiatric exam: Present: normal affect, normal mood Skin exam: Present: warm, dry, intact, normal color. Absent: rash Course Vital Signs 10/31/17 20:13 Temperature 97.7 F Pulse Rate 82 Respiratory 20 Rate O2 Sat by Pulse 96 Oximetry - Reevaluation(s) Reevaluation #1: 10/31/17 22:20 Patient's awake and alert throughout ER stay. Medical Decision Making - Medical Decision Making 36 male the ER status post fall. Patient positive EtOH, do sustain laceration right forearm. Lacerations are repaired. Patient placed on antibiotics and discharged - Radiology Data Radiology results: report reviewed (CT brain C-spine negative for acute disease , x-ray right forearm negative for foreign body or fracture), image reviewed Disposition Clinical Impression: Fall, Laceration of right forearm Disposition: HOME SELF-CARE Condition: Good Instructions: Fall Prevention for Older Adults (ED), Laceration (ED) Referrals: None,Stated [Primary Care Provider] - 1-2 days
[2017-10-31 22:58] VITALS: BP 149/67; PULSE 87; RESP 16; TEMP 98
--- NOTE | 2017-11-03 06:49 | CDI ---
Documentation Clarification OP Dear Jose Alejandro ELI, , please add addendum for lacertion procedure Note. Thank you, natalia. Title Investigator. If you have any questions please contact car wash manager at [phone]. [facility]
--- NOTE | 2017-11-12 14:12 | ED ---
Disposition Clinical Impression: Fall, Laceration of right forearm Disposition: HOME SELF-CARE Condition: Good Instructions: Laceration (ED), Fall Prevention for Older Adults (ED) Referrals: None,Stated [Primary Care Provider] - 1-2 days Procedures - Laceration Laceration #1 Consent Obtained: verbal consent Time Out Performed: Yes Indication: laceration Site: upper extremity Size (cm): 8 Description: linear Depth: simple, single layer Anesthetic Used: lidocaine 1% Anesthesia Technique: local infiltration Pre-repair: wound explored, irrigated extensively Type of Sutures: nylon Size of Sutures: 5-0 Technique: simple, interrupted Patient Tolerated Procedure: well
== END 2017-10-31 22:58 | disposition home or self-care (01) ==
LOC: SUPCPDRO 20:07 → EC 20:07
DX: S51.811A Laceration without foreign body of right forearm, initial encounter (principal); F17.200 Nicotine dependence, unspecified, uncomplicated; Z88.5 Allergy status to narcotic agent; Z79.899 Other long term (current) drug therapy; W19.XXXA Unspecified fall, initial encounter; Y92.009 Unspecified place in unspecified non-institutional (private) residence as the place of occurrence of the external cause
CPT/HCPCS: 12004; 70450; 72125; 99284

== ENCOUNTER 2017-11-18 12:45 | Emergency (ER) | payer OTHER ==
[2017-11-18 12:51] VITALS: BP 133/88; PULSE 109; RESP 18; TEMP 97
--- NOTE | 2017-11-18 13:10 | ED ---
Skin/Abscess/FB HPI - General Chief complaint: Skin/Abscess/Foreign Body Stated complaint: Infection on arm Time Seen by Provider: 11/18/17 12:51 Source: patient, RN notes reviewed Mode of arrival: ambulatory Limitations: no limitations - History of Present Illness Initial comments: This is a 57-year-old male who presents to the emergency department with chief complaint of possible arm infection. Patient states that on October 31 he had a fall and sustained 2 lacerations to his right forearm. He presented to the emergency department today to have the sutures removed. While being triaged, he complained of pain and thought that one of his lacerations may be infected. Patient requests pain medication. He states that the laceration most distal on his right forearm is very painful. He states that he is ALLERGIC to Tylenol with Codeine and ibuprofen. Denies fevers or chills, chest pain or shortness of breath, abdominal pain, nausea or vomiting. - Related Data Home Medications Medication Instructions Recorded Confirmed Multivitamins, Thera [Multivitamin 1 tab PO DAILY 01/21/17 10/31/17 (formulary)] Previous Rx's Medication Instructions Recorded amLODIPine [Norvasc] 5 mg PO DAILY #30 tab 01/26/17 levETIRAcetam [Keppra] 1,000 mg PO Q12HR #60 tab 01/26/17 Cephalexin [Keflex] 500 mg PO Q12HR #20 cap 11/18/17 traMADol HCL [Ultram] 50 mg PO Q4HR PRN #6 tab 11/18/17 Allergies Allergy/AdvReac Type Severity Reaction Status Date / Time codeine AdvReac Itching Verified 11/18/17 12:50 Review of Systems ROS Statement: Those systems with pertinent positive or pertinent negative responses have been documented in the HPI. ROS Other: All systems not noted in ROS Statement are negative. Past Medical History Past Medical History: Liver Disease, Seizure Disorder Additional Past Medical History / Comment(s): patient not sure if he has liver disease History of Any Multi-Drug Resistant Organisms: None Reported Past Surgical History: No Surgical Hx Reported Additional Past Surgical History / Comment(s): Tooth extraction with anesthesia Past Anesthesia/Blood Transfusion Reactions: Unable to Obtain Additional Past Anesthesia/Blood Transfusion Reaction / Comment(s): Pt has never had surgery. Past Psychological History: Anxiety, Depression Smoking Status: Current every day smoker Past Alcohol Use History: Daily Past Drug Use History: None Reported - Past Family History Mother Family Medical History: Cancer Additional Family Medical History / Comment(s): Mother is . She had lung cancer. General Exam - General Exam Comments Initial Comments: General: Awake and alert, well-developed; in no apparent distress. Appears agitated. HEENT: Head atraumatic, normocephalic. Pupils are equal, round and reactive to light. Extraocular movements intact. Oropharynx moist without erythema or exudate. Neck: Supple. Normal ROM. Cardiovascular: Regular rate and rhythm. No murmurs, rubs or gallops. Chest symmetrical. Respiratory: Lungs clear to auscultation bilaterally. No wheezes, rales or rhonchi. Normal respiratory effort with no use of accessory muscles. Musculoskeletal: Normal ROM of right upper extremity. Sensation is intact. Radial pulses are 2+ equal and palpable bilaterally. Skin: [place], warm and dry. 2 square-like areas of redness are round both laceration sites on right forearm, this appears to be a reaction to the tape. Lacerations appear well-healed with mild erythema from suture reaction. No warmth or drainage noted. Laceration most distal is tender on palpation. Neurological: Alert and oriented x3. CN II-XII grossly intact. Speech is fluent and answers are appropriate. No focal neuro deficits. Psychiatric: Normal mood and affect. No overt signs of depression or anxiety noted. Limitations: no limitations Course Vital Signs 11/18/17 12:47 Temperature 97.0 F L Pulse Rate 109 H Respiratory 18 Rate Blood Pressure 133/88 O2 Sat by Pulse 95 Oximetry Medical Decision Making - Medical Decision Making This is a 57-year-old male who presents to the emergency department with chief complaint of left arm infection. Sutures removed from 2 laceration sites on patient's right forearm today. He states that the laceration site most distal on his right forearm is tender. He is worried it may be infected. Patient is very agitated as he requests pain medication. Both laceration sites appear well healed with mild erythema from suture reaction. I assured patient that it does not appear that he has an infection, however patient is very worried. He will be started on Keflex. Patient also requests pain medication. He states he is ALLERGIC to ibuprofen and Tylenol with codeine. I informed the patient I would not be prescribing any opiates. He agreed to a prescription for tramadol , however he states that he does break out in rashes from this as well. He stated that if he does have a reaction he will get an ambulance and be back in the emergency department. [facility] was run and it does appear the patient has been prescribed tramadol twice in the past. Patient is in no acute distress and will be discharged home. Disposition Clinical Impression: Healing laceration Disposition: HOME SELF-CARE Condition: Good Instructions: Laceration (ED) Additional Instructions: Please take medications as prescribed. Please follow up with primary care provider within 1-2 days. Return to emergency department if symptoms should worsen or any concerns arise. Prescriptions: Cephalexin [Keflex] 500 mg PO Q12HR #20 cap traMADol HCL [Ultram] 50 mg PO Q4HR PRN #6 tab PRN Reason: Pain Referrals: None,Stated [Primary Care Provider] - 1-2 days Time of Disposition: 13:10
== END 2017-11-18 13:16 | disposition home or self-care (01) ==
LOC: EC 12:45
DX: S51.811D Laceration without foreign body of right forearm, subsequent encounter (principal); F17.200 Nicotine dependence, unspecified, uncomplicated; Z79.899 Other long term (current) drug therapy; Z88.5 Allergy status to narcotic agent
CPT/HCPCS: 99282

== ENCOUNTER 2018-04-21 09:30 | Inpatient (IN) | payer OTHER ==
[2018-04-21] MEDS ORDERED: SODIUM CHLORIDE 0.9% 500 ML IV STA (09:43)
[2018-04-21] MEDS ORDERED: IPRATROPIUM-ALBUTEROL 3 ML NEB INHALATION STA (09:44)
[2018-04-21] MEDS ORDERED: levETIRAcetam IV 1,000 MG in SALINE 1 100ML.BAG IVPB STA (09:47)
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
[2018-04-21 10:31] LABS: Basophils % (A) 0 %; Eosinophils % (A) 0 %; HCT 31.2 % (39.0-53.0); HGB 10.8 gm/dL (13.0-17.5); Lymphocytes # (A) 0.5 k/uL (1.0-4.8); Lymphocytes % (A) 8 %; MCH 35.1 pg (25.0-35.0); MCHC 34.8 g/dL (31.0-37.0); Macrocytosis Slight; Mean Platelet Volume 9.9; Monocytes # (A) 0.4 k/uL (0-1.0); Monocytes % (A) 5 %; Neutrophils # (A) 5.9 k/uL (1.3-7.7); Neutrophils % (A) 86 %; Platelet Count 111 k/uL (150-450); RBC 3.09 m/uL (4.30-5.90); RDW 13.5 % (11.5-15.5); WBC 6.8 k/uL (3.8-10.6)
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
[2018-04-21] MEDS ORDERED: HYDROcodone/APAP 5-325MG 1 EACH TAB PO STA (10:41)
--- NOTE | 2018-04-21 10:46 | XR ---
EXAMINATION TYPE: XR humerus RT DATE OF EXAM: 04/21/2018 COMPARISON: NONE HISTORY: Pain TECHNIQUE: 2 views submitted. FINDINGS: There is a displaced fracture involving the greater tuberosity of the humerus. Remaining portion of t he humerus appears intact. IMPRESSION: 1. Displaced fracture involving the proximal humerus.
--- NOTE | 2018-04-21 10:47 | XR ---
EXAMINATION TYPE: XR chest 1V DATE OF EXAM: 04/21/2018 COMPARISON: NONE HISTORY: Pain TECHNIQUE: Single frontal view of the chest is obtained. FINDINGS: There is no focal air space opacity, pleural effusion, or pneumothorax seen. The cardiac silhouette size is within normal limits. The osseous structures are intact. Hyperinflation suggests COPD arthropathy shoulders no overt failure. Atherosclerotic change of the aorta. IMPRESSION: No acute process.
[2018-04-21 11:38] LABS: ALT 67 U/L (21-72); AST 170 U/L (17-59); Albumin 3.7 g/dL (3.5-5.0); Alcohol <10 mg/dL; Alkaline Phosphatase 124 U/L (38-126); Anion Gap 11 mmol/L; Blood Urea Nitrogen 12 mg/dL (9-20); Calcium 8.2 mg/dL (8.4-10.2); Carbon Dioxide 25 mmol/L (22-30); Chloride 95 mmol/L (98-107); Glucose 114 mg/dL (74-99); Magnesium 1.9 mg/dL (1.6-2.3); Potassium 3.2 mmol/L (3.5-5.1); Sodium 131 mmol/L (137-145); Total Bilirubin 0.9 mg/dL (0.2-1.3); Total Protein 6.2 g/dL (6.3-8.2)
[2018-04-21] MEDS ORDERED: POTASSIUM CHLORIDE ER 20 MEQ TAB.ER PO STA (11:43)
[2018-04-21 11:56] LABS: Creatine Kinase 148 U/L (55-170)
[2018-04-21 12:06] LABS: Creatine Kinase MB 1.4 ng/mL (0.0-2.4); Troponin I <0.012 ng/mL (0.000-0.034)
[2018-04-21 12:35] LABS: Amphetamine Screen,Urine Not Detected (NotDetected); Barbiturate Screen,Urine Not Detected (NotDetected); Benzodiazepines Screen,Urine Detected (NotDetected); Cocaine Screen,Urine Not Detected (NotDetected); Methadone Screen, Urine Not Detected (NotDetected); Opiate Screen,Urine Detected (NotDetected); Oxycodone Screen, Urine Not Detected (NotDetected); Phencyclidine Screen,Urine Not Detected (NotDetected); Tricyclic Antidepressant,Urine Not Detected (NotDetected); Urn Cannabinoid Scrn Not Detected (NotDetected)
[2018-04-21 12:37] LABS: Amorphous Sediment,Urine Rare /hpf; Appearance,Urine Cloudy (Clear); Bilirubin,Urine Negative (Negative); Blood,Urine Negative (Negative); Color,Urine Yellow; Glucose,Urine (UA) Negative (Negative); Hyaline Casts,Urine 11 /lpf (0-2); Ketones,Urine 1+ (Negative); Leukocyte Esterase,Urine Negative (Negative); Mucus,Urine Many /hpf; Nitrite,Urine Negative (Negative); PH, Urine 7.5 (5.0-8.0); Protein,Urine 1+ (Negative); Specific Gravity,Urine 1.015 (1.001-1.035); Squamous Epithelial Cell,Urine <1 /hpf (0-4); Urobilinogen,Urine <2.0 mg/dL (<2.0); WBC,Urine 3 /hpf (0-5)
[2018-04-21] MEDS ORDERED: methylPREDNISolone SOD SUCCI 125 MG/2 ML VIAL IV STA (12:42)
[2018-04-21] MEDS ORDERED: LORazepam 2 MG/ML INJ IV PRN ×3 (12:53)
[2018-04-21] MEDS ORDERED: DEXTROSE 5%-0.45% NACL 1,000 ML IV ONE (14:27)
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
[2018-04-21] MEDS: IPRATROPIUM-ALBUTEROL 3 ML NEB INHALATION SCH ×2 (16:38→20:04)
[2018-04-21] MEDS: THIAMINE 100 MG TAB PO SCH (16:49)
[2018-04-21] MEDS: HYDROcodone/APAP 5-325MG 1 EACH TAB PO PRN (16:51)
[2018-04-21] MEDS ORDERED: methylPREDNISolone SOD SUCCI 125 MG/2 ML VIAL IV SCH (18:00)
[2018-04-21] MEDS: levETIRAcetam 500 MG TAB PO SCH (20:34)
[2018-04-21] MEDS: oxyCODONE-APAP 5-325MG 1 EACH TAB PO PRN (20:35)
[2018-04-21] MEDS: HEPARIN SODIUM,PORCINE 5,000 UNIT/ML 1 ML VIAL SQ SCH (20:35)
[2018-04-21] MEDS ORDERED: MORPHINE SULFATE 2 MG/ML SYRINGE IVP STA (23:05)
[2018-04-22] MEDS: oxyCODONE-APAP 5-325MG 1 EACH TAB PO PRN ×4 (00:22→13:59)
[2018-04-22] MEDS: IPRATROPIUM-ALBUTEROL 3 ML NEB INHALATION SCH ×5 (07:28→19:05)
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
[2018-04-22 09:01] LABS: Basophils % (A) 0 %; Eosinophils # (A) 0.1 k/uL (0-0.7); Eosinophils % (A) 1 %; HCT 32.4 % (39.0-53.0); HGB 10.8 gm/dL (13.0-17.5); Lymphocytes # (A) 1.2 k/uL (1.0-4.8); Lymphocytes % (A) 13 %; MCH 34.7 pg (25.0-35.0); MCHC 33.2 g/dL (31.0-37.0); MCV 104.6 fL (80.0-100.0); Macrocytosis Slight; Mean Platelet Volume 7.9; Monocytes # (A) 0.5 k/uL (0-1.0); Monocytes % (A) 5 %; Neutrophils # (A) 7.2 k/uL (1.3-7.7); Neutrophils % (A) 79 %; Platelet Count 137 k/uL (150-450); RDW 13.6 % (11.5-15.5); WBC 9.1 k/uL (3.8-10.6)
[2018-04-22 09:13] LABS: ALT 55 U/L (21-72); AST 77 U/L (17-59); Albumin 3.6 g/dL (3.5-5.0); Alkaline Phosphatase 103 U/L (38-126); Anion Gap 10 mmol/L; Blood Urea Nitrogen 11 mg/dL (9-20); Calcium 8.7 mg/dL (8.4-10.2); Carbon Dioxide 26 mmol/L (22-30); Chloride 95 mmol/L (98-107); Glucose 179 mg/dL (74-99); Potassium 3.4 mmol/L (3.5-5.1); Sodium 131 mmol/L (137-145); Total Bilirubin 0.9 mg/dL (0.2-1.3); Total Protein 6.2 g/dL (6.3-8.2)
[2018-04-22] MEDS: predniSONE 20 MG TAB PO SCH (09:55)
[2018-04-22] MEDS: NICOTINE 21MG/24HR PATCH TRANSDERM SCH (09:55)
[2018-04-22] MEDS: levETIRAcetam 500 MG TAB PO SCH ×2 (10:01→21:57)
[2018-04-22] MEDS: HEPARIN SODIUM,PORCINE 5,000 UNIT/ML 1 ML VIAL SQ SCH ×2 (10:01→21:57)
[2018-04-22] MEDS: THIAMINE 100 MG TAB PO SCH ×2 (10:01→18:16)
[2018-04-22] MEDS ORDERED: POTASSIUM CHLORIDE 40 MEQ in SODIUM CHLORIDE 0.9% 250 ML IVPB STA (10:47)
[2018-04-22] MEDS: HYDROcodone/APAP 5-325MG 1 EACH TAB PO PRN (11:04)
[2018-04-22] MEDS ORDERED: SODIUM CHLORIDE 0.9% 1,000 ML IV SCH (12:45)
--- NOTE | 2018-04-22 12:45 | P.PN ---
Subjective Progress Note Date: 04/22/18 Principal diagnosis: Seizure Patient is doing well today. No seizure activity since admission. He was sitting up on the side of the bed when I saw him. He is complaining of worsening pain in his right arm. Right arm appear significantly swollen compared to the left. There is also evidence of bruising. Awaiting orthopedic evaluation. Objective - Vital Signs Vital signs: Vital Signs Temp 98.4 F 04/22/18 06:36 Pulse 88 04/22/18 11:22 Resp 18 04/22/18 06:36 BP 103/64 04/22/18 06:36 Pulse Ox 93 L 04/22/18 07:28 Intake & Output 04/21/18 04/22/18 04/22/18 18:59 06:59 18:59 Intake Total 240 Balance 240 Weight 72.575 kg 72.575 kg Intake: Oral 240 Other: Voiding Method Toilet # Voids 3 1 # Bowel Movements 1 - Exam General: The patient is awake and alert, in no distress Eye: there is normal conjunctiva bilaterally. Neck: The neck is supple, there is no JVD. Cardiovascular: Normal S1-S2, no S3-S4, no murmurs. Respiratory: Lungs clear to auscultation bilaterally Gastrointestinal: Abdomen is soft, nontender Musculoskeletal: There is no pedal edema. Neurological:. Speech is normal. Skin: Skin is warm and dry - Labs CBC & Chem 7: 04/22/18 08:17 04/22/18 08:17 Labs: Abnormal Lab Results - Last 24 Hours (Table) 04/22/18 04/22/18 Range/Units 08:17 08:17 RBC 3.10 L (4.30-5.90) m/uL Hgb 10.8 L (13.0-17.5) gm/dL Hct 32.4 L (39.0-53.0) % MCV 104.6 H (80.0-100.0) fL Plt Count 137 L (150-450) k/uL Sodium 131 L (137-145) mmol/L Potassium 3.4 L (3.5-5.1) mmol/L Chloride 95 L (98-107) mmol/L Creatinine 0.56 L (0.66-1.25) mg/dL Glucose 179 H (74-99) mg/dL AST 77 H (17-59) U/L Total Protein 6.2 L (6.3-8.2) g/dL Assessment and Plan Assessment: 1. Seizure episode, most likely secondary to medication noncompliance. Computed tomography scan of the head showed no acute intracranial process. Patient is started on Keppra 500 mg twice a day. Neurology consultued, appreciate recommendation. EEG ordered and pending 2. Right proximal emersed fracture, currently right arm in sling. Awaiting orthopedic evaluation. Most of the swelling and bruising is related to the underlying fracture, I would order a Doppler to rule out DVT. 3. Tobacco abuse: Counseled extensively to quit. Nicotine patch ordered. 4. History of heavy alcohol abuse. Alcohol level negative in the emergency room. Patient reports last drinking 2 weeks ago. We will continue IV fluid hydration, multivitamins, and PRN CIWA protocol 5. Hypokalemia, replaced, Repeat lab work ordered 6. DVT prophylaxis with subcu heparin 7. Macrocytic anemia, secondary to alcohol abuse.
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
[2018-04-22] MEDS: oxyCODONE-APAP 10-325MG 1 EACH TAB PO PRN (18:20)
--- NOTE | 2018-04-22 18:53 | EEG ---
ELECTROENCEPHALOGRAM REPORT DATE OF SERVICE: 04/21/2018. REASON FOR TESTING: Seizure. DESCRIPTION OF THE PROCEDURE: This EEG was performed using a 21 channel digital electroencephalograph, following international 10-20 system. DESCRIPTION OF THE RECORDING: From the beginning of the tracing, and with patient's eyes closed, the background rhythm was mostly consisting of 8 Hz alpha frequency in the posterior occipital leads. No obvious asymmetry is seen. Frequent muscle movement artifacts are seen. Photic stimulation was performed with a minimal driving response seen. No pathological waves were elicited. Hyperventilation was not performed. The patient remains awake throughout the tracing. No epileptiform discharges were seen. INTERPRETATION: This awake EEG can be considered within normal limits. There was no asymmetry seen. No epileptiform discharges were noticed. The absence of epileptiform discharges does not rule out the diagnosis of epilepsy; therefore, clinical correlation is recommended. MMODL / IJN: [id number] /
[2018-04-22] MEDS ORDERED: oxyCODONE-APAP 10-325MG 1 EACH TAB ONE (22:20)
[2018-04-23] MEDS ORDERED: oxyCODONE-APAP 10-325MG 1 EACH TAB ONE (02:20)
[2018-04-23] MEDS: oxyCODONE-APAP 10-325MG 1 EACH TAB PO PRN ×2 (06:18→10:21)
[2018-04-23 07:01] VITALS: BP 134/91; RESP 16; TEMP 97.8
[2018-04-23] MEDS: IPRATROPIUM-ALBUTEROL 3 ML NEB INHALATION SCH ×2 (07:56→11:05)
[2018-04-23 08:01] LABS: Basophils % (A) 0 %; Eosinophils # (A) 0.2 k/uL (0-0.7); Eosinophils % (A) 2 %; HGB 10.9 gm/dL (13.0-17.5); Lymphocytes # (A) 0.9 k/uL (1.0-4.8); Lymphocytes % (A) 10 %; MCH 35.1 pg (25.0-35.0); MCV 103.2 fL (80.0-100.0); Macrocytosis Slight; Mean Platelet Volume 7.1; Monocytes # (A) 0.7 k/uL (0-1.0); Monocytes % (A) 8 %; Neutrophils # (A) 6.7 k/uL (1.3-7.7); Neutrophils % (A) 78 %; Platelet Count 183 k/uL (150-450); RDW 13.9 % (11.5-15.5); WBC 8.6 k/uL (3.8-10.6)
[2018-04-23 08:07] VITALS: PULSE 132
[2018-04-23] MEDS: HEPARIN SODIUM,PORCINE 5,000 UNIT/ML 1 ML VIAL SQ SCH ×2 (08:07→08:13)
[2018-04-23] MEDS: predniSONE 20 MG TAB PO SCH (08:11)
[2018-04-23] MEDS: NICOTINE 21MG/24HR PATCH TRANSDERM SCH (08:11)
[2018-04-23] MEDS ORDERED: ALPRAZolam 1 MG TAB PO STA (08:42)
[2018-04-23 09:10] LABS: ALT 50 U/L (21-72); AST 77 U/L (17-59); Albumin 4.1 g/dL (3.5-5.0); Alkaline Phosphatase 97 U/L (38-126); Anion Gap 13 mmol/L; Blood Urea Nitrogen 10 mg/dL (9-20); Carbon Dioxide 23 mmol/L (22-30); Chloride 93 mmol/L (98-107); Glucose 102 mg/dL (74-99); Sodium 129 mmol/L (137-145); Total Bilirubin 1.1 mg/dL (0.2-1.3); Total Protein 6.8 g/dL (6.3-8.2)
[2018-04-23] MEDS: levETIRAcetam 500 MG TAB PO SCH (10:22)
--- NOTE | 2018-04-23 11:27 | P.DS ---
Providers Date of admission: 04/21/18 14:03 Expected date of discharge: 04/23/18 Attending physician: Lucrecia Pacheco Consults: 04/21/18 14:26 Consult Physician Routine Consulting Provider: Alessandro Au Consult Reason/Comments: Right humerus fracture Do you want consulting provider notified?: Yes 04/21/18 14:32 Consult Physician Routine Consulting Provider: Macario Beckford Consult Reason/Comments: Seizure disorder Do you want consulting provider notified?: Yes Primary care physician: Stated None Hospital Course: On the day of discharge, patient was counseled extensively about medication compliance. He was requesting a prescription for Xanax for which he was advised to follow-up with his primary care physician. He will be given 3 day supplies of [place] as needed for pain. He was counseled regarding follow-up with a primary care physician as well as orthopedic. He was counseled extensively about medication compliance. 1. Seizure episode, most likely secondary to medication noncompliance. Computed tomography scan of the head showed no acute intracranial process. Patient was started on Keppra 500 mg twice a day. Neurology consultued, appreciate recommendation. EEG with no abnormalities. 2. Right proximal emersed fracture, currently right arm in sling. Right upper extremity ultrasound showed no evidence of DVT. Patient was seen by orthopedic. Continue nonweightbearing and icing. Continue wearing sling. No surgical intervention at this time. Follow-up with orthopedic in the office. 3. Tobacco abuse: Counseled extensively to quit. Nicotine patch ordered. 4. History of heavy alcohol abuse. Alcohol level negative in the emergency room. Patient reports last drinking 2 weeks ago. He was encouraged to stay away from alcohol 5. Hypokalemia, replaced 6. Macrocytic anemia, secondary to alcohol abuse. 7. COPD exacerbation, improved with IV steroids and bronchodilators. Would finish 5 days course of prednisone. Patient Condition at Discharge: Stable Plan - Discharge Summary New Discharge Prescriptions: New HYDROcodone/APAP 10-325MG [[place] 10-325] 1 tab PO Q6HR PRN 3 Days #12 tab PRN Reason: Pain levETIRAcetam [Keppra] 500 mg PO Q12HR #60 tab Nicotine 21Mg/24Hr Patch [Habitrol] 1 patch TRANSDERM DAILY #30 patch predniSONE 40 mg PO DAILY #8 tab Thiamine [Vitamin B-1] 100 mg PO BID@1200,1700 #14 tab Discharge Medication List HYDROcodone/APAP 10-325MG [[place] 10-325] 1 tab PO Q6HR PRN 3 Days #12 tab [Rx] Nicotine 21Mg/24Hr Patch [Habitrol] 1 patch TRANSDERM DAILY #30 patch 04/23/18 [ Rx] Thiamine [Vitamin B-1] 100 mg PO BID@1200,1700 #14 tab 04/23/18 [Rx] levETIRAcetam [Keppra] 500 mg PO Q12HR #60 tab 04/23/18 [Rx] predniSONE 40 mg PO DAILY #8 tab 04/23/18 [Rx] Follow up Appointment(s)/Referral(s): Macario Beckford MD [STAFF PHYSICIAN] - 1 Week (Pt wants to make own appointmnts) None,Stated [Primary Care Provider] - 1-2 days (Pt doesnt have a primary care doctor, refusing to have us supply him with one. ) Suresh Avina, [Doctor of Osteopathic Medicine] - 1 Week (Pt wants to make own appointments. ) Patient Instructions/Handouts: Arm Fracture in Adults (DC) Activity/Diet/Wound Care/Special Instructions: Take medications as prescribed. NO driving for 6 months or when approved by neurology. Ice, sling and rest right arm as directed. Activity as tolerated, fall precautions. Regular diet. NO smoking, cessation information provided. Discharge Disposition: HOME SELF-CARE
[2018-04-23] MEDS: THIAMINE 100 MG TAB PO SCH (11:30)
== END 2018-04-23 12:00 | disposition home or self-care (01) | DRG 101 ==
LOC: EC 09:30 → 4MS4W 14:03
PROVIDERS: ADMIT Internal Medicine; ATTEND Internal Medicine
DX: G40.909 Epilepsy, unspecified, not intractable, without status epilepticus (principal); S42.201A Unspecified fracture of upper end of right humerus, initial encounter for closed fracture; E87.1 Hypo-osmolality and hyponatremia; J44.1 Chronic obstructive pulmonary disease with (acute) exacerbation; E87.6 Hypokalemia; T42.6X6A Underdosing of other antiepileptic and sedative-hypnotic drugs, initial encounter; F32.9 Major depressive disorder, single episode, unspecified; F41.9 Anxiety disorder, unspecified; F17.200 Nicotine dependence, unspecified, uncomplicated; D69.6 Thrombocytopenia, unspecified; R29.6 Repeated falls; D53.9 Nutritional anemia, unspecified; Z71.6 Tobacco abuse counseling; V89.2XXA Person injured in unspecified motor-vehicle accident, traffic, initial encounter; Y92.410 Unspecified street and highway as the place of occurrence of the external cause; Z80.1 Family history of malignant neoplasm of trachea, bronchus and lung; Z88.5 Allergy status to narcotic agent
CPT/HCPCS: 36415; 70450; 71045; 72125; 80053; 80306; 80320; 81001; 82550; 82553; 83735; 84484; 85025; 93005; 94640; 94760; 95816; 96361; 96374; 96375; 99285

== ENCOUNTER 2018-06-18 19:50 | Emergency (ER) | payer OTHER ==
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
[2018-06-18] MEDS ORDERED: IPRATROPIUM-ALBUTEROL 3 ML NEB INHALATION STA (20:30)
[2018-06-18 21:28] VITALS: RESP 18
--- NOTE | 2018-06-18 21:35 | XR ---
EXAMINATION TYPE: XR chest 2V DATE OF EXAM: 06/18/2018 COMPARISON: 11/23/2016 HISTORY: Difficulty breathing TECHNIQUE: Frontal and lateral views of the chest are obtained. FINDINGS: Heart and mediastinum are within normal limits. Lungs are clear. Costophrenic angles are c lear. Bony thorax is intact. Lateral view is limited. IMPRESSION: No active cardiopulmonary disease. No adverse change.
--- NOTE | 2018-06-18 21:37 | XR ---
EXAMINATION TYPE: XR shoulder complete RT DATE OF EXAM: 06/18/2018 COMPARISON: NONE HISTORY: Shoulder pain TECHNIQUE: 4 views FINDINGS: There is impacted displaced comminuted humeral neck fracture. There is soft tissue calcific ation around the fracture site consistent with an old fracture. There is inferior dislocation of the humeral head. IMPRESSION: Comminuted humeral neck fracture. There is soft tissue calcification around the fracture site and I do not think this is an acute fracture. Acute fracture is still possible.
--- NOTE | 2018-06-18 21:41 | XR ---
EXAMINATION TYPE: XR humerus RT DATE OF EXAM: 06/18/2018 COMPARISON: NONE HISTORY: Fracture TECHNIQUE: 4 views FINDINGS: There is impacted displaced humeral neck fracture. There is displacement 1 4 cm. There is c alcification around the humeral head and this may not be an acute fracture. There is interposition of the humeral head suggestive of a partial dislocation. Elbow joint appears intact. IMPRESSION: Comminuted humeral neck fracture with significant displacement. Humeral head subluxation. Age of this fracture is not clear.
[2018-06-18 21:53] LABS: Basophils % (A) 0 %; Eosinophils # (A) 0.5 k/uL (0-0.7); Eosinophils % (A) 6 %; HCT 44.8 % (39.0-53.0); HGB 14.9 gm/dL (13.0-17.5); Lymphocytes # (A) 2.2 k/uL (1.0-4.8); Lymphocytes % (A) 27 %; MCH 33.6 pg (25.0-35.0); MCHC 33.2 g/dL (31.0-37.0); MCV 101.3 fL (80.0-100.0); Mean Platelet Volume 6.4; Monocytes # (A) 0.4 k/uL (0-1.0); Monocytes % (A) 5 %; Neutrophils # (A) 4.8 k/uL (1.3-7.7); Neutrophils % (A) 60 %; Platelet Count 356 k/uL (150-450); RBC 4.42 m/uL (4.30-5.90); RDW 13.1 % (11.5-15.5)
[2018-06-18 22:05] LABS: ALT 18 U/L (21-72); AST 21 U/L (17-59); Albumin 4.1 g/dL (3.5-5.0); Alkaline Phosphatase 55 U/L (38-126); Anion Gap 10 mmol/L; Blood Urea Nitrogen 13 mg/dL (9-20); Calcium 9.2 mg/dL (8.4-10.2); Carbon Dioxide 28 mmol/L (22-30); Chloride 109 mmol/L (98-107); Glucose 85 mg/dL (74-99); Potassium 4.5 mmol/L (3.5-5.1); Sodium 147 mmol/L (137-145); Total Bilirubin 0.3 mg/dL (0.2-1.3); Total Protein 7.1 g/dL (6.3-8.2)
[2018-06-18] MEDS ORDERED: HYDROcodone/APAP 5-325MG 1 EACH TAB PO STA (22:05)
[2018-06-18 22:17] LABS: Alcohol 180 mg/dL
[2018-06-18] MEDS ORDERED: oxyCODONE-APAP 5-325MG 1 EACH TAB PO STA (22:22)
[2018-06-19 00:50] VITALS: BP 134/86; PULSE 80; TEMP 98.6
== END 2018-06-19 00:31 | disposition other institution (70) ==
LOC: EC 19:50
DX: S42.201A Unspecified fracture of upper end of right humerus, initial encounter for closed fracture (principal); F17.200 Nicotine dependence, unspecified, uncomplicated; Z88.5 Allergy status to narcotic agent; Z88.6 Allergy status to analgesic agent; Z53.29 Procedure and treatment not carried out because of patient's decision for other reasons
CPT/HCPCS: 36415; 94640; 80053; 85025; 73030; 73060; 71046; 99285; G0480; 80320

== ENCOUNTER 2018-07-30 17:36 | Inpatient (IN) | payer MEDICAID, OTHER ==
[2018-07-30] MEDS ORDERED: MECLIZINE 12.5 MG TAB PO STA (18:35)
[2018-07-30] MEDS ORDERED: SODIUM CHLORIDE 0.9% 500 ML 500 ML IV STA (18:35)
--- NOTE | 2018-07-30 18:42 | ED ---
Dizziness HPI <Wesly Foster - Last Filed: 07/30/18 23:00> - General Source: patient Mode of arrival: ambulatory Limitations: no limitations <Adriane Gipson - Last Filed: 08/01/18 02:08> - General Chief Complaint: Dizziness Stated Complaint: dizzy & collar bone pain Time Seen by Provider: 07/30/18 18:07 - History of Present Illness Initial Comments: 57-year-old male patient presents to the emergency department today with chief complaint of dizziness and suicidal ideation. Patient states that he has been having dizziness since he was first diagnosed with seizures "a long time ago". Patient is unsure exactly when this was with states it's been a while. Patient states that whenever he turns his head to the right the room will start spinning and he feels like he is going to pass out. Patient states that this is constant for him. He denies any headache, blurred vision, or double vision. States he is seeing a neurologist and is taking antiepileptic medications, states the medications were recently switched. Patient states also that he is a chronic alcoholic with last drink being on Friday. Patient states that he did have a fall several weeks ago which caused a fractured clavicle. Patient states that he is tired of the pain and does not want to live anymore because of it. Patient states that he has suicidal thoughts on a daily basis. He denies any homicidal ideation. States he started having chest tightness a few minutes ago with some tingling to the right hand. Patient denies any shortness of breath. He denies any weakness. Patient denies any recent rash, fever, chills, abdominal pain, nausea, vomiting, diarrhea, constipation, back pain, hematuria, dysuria, urinary urgency, urinary frequency, or any other complaints. (Adriane Gipson) - Related Data Home Medications Medication Instructions Recorded Confirmed chlordiazePOXIDE HCl [Librium] 25 mg PO TID 07/30/18 07/30/18 levETIRAcetam [Keppra] 750 mg PO BID 07/30/18 07/30/18 oxyCODONE-APAP 10-325MG [Percocet 1 tab PO QID PRN 07/30/18 07/30/18 10-325 mg] Allergies Allergy/AdvReac Type Severity Reaction Status Date / Time codeine AdvReac Itching Verified 07/30/18 18:30 ibuprofen [From Motrin] AdvReac Unknown Verified 07/30/18 18:30 Review of Systems ROS Other: All systems not noted in ROS Statement are negative. <Wesly Foster Tessie - Last Filed: 07/30/18 23:00> ROS Other: All systems not noted in ROS Statement are negative. <PennyAdriane ma - Last Filed: 08/01/18 02:08> ROS Statement: Those systems with pertinent positive or pertinent negative responses have been documented in the HPI. Past Medical History Past Medical History: Liver Disease, Seizure Disorder Additional Past Medical History / Comment(s): patient not sure if he has liver disease History of Any Multi-Drug Resistant Organisms: None Reported Past Surgical History: No Surgical Hx Reported Additional Past Surgical History / Comment(s): Tooth extraction with anesthesia Past Anesthesia/Blood Transfusion Reactions: Unable to Obtain Additional Past Anesthesia/Blood Transfusion Reaction / Comment(s): Pt has never had surgery. Past Psychological History: Anxiety, Depression Smoking Status: Current every day smoker Past Alcohol Use History: Abuse, Daily Past Drug Use History: None Reported - Past Family History Mother Family Medical History: Cancer Additional Family Medical History / Comment(s): Mother is . She had lung cancer. <Adriane Gipson Sophy - Last Filed: 08/01/18 02:08> General Exam Limitations: no limitations General appearance: alert, in no apparent distress, other (This is a well- developed, thin appearing adult male patient in no acute distress. Vital signs upon presentation are temperature 97.7F, pulse 116, respirations 20, blood pressure 125/79, pulse ox 93% on room air.) Eye exam: Present: normal appearance, PERRL, EOMI. Absent: scleral icterus, conjunctival injection, nystagmus, periorbital swelling ENT exam: Present: normal exam, normal oropharynx, mucous membranes moist Respiratory exam: Present: normal lung sounds bilaterally. Absent: respiratory distress, wheezes, rales, rhonchi, stridor Cardiovascular Exam: Present: regular rate, normal rhythm, normal heart sounds. Absent: systolic murmur, diastolic murmur, rubs, gallop, clicks GI/Abdominal exam: Present: soft, normal bowel sounds. Absent: distended, tenderness, guarding, rebound, rigid Neurological exam: Present: alert, oriented X3, CN II-XII intact Psychiatric exam: Present: normal affect, normal mood Skin exam: Present: warm, dry, intact, normal color. Absent: rash <Adriane Gipson - Last Filed: 08/01/18 02:08> Course <Wesly Foster - Last Filed: 07/30/18 23:00> <Adriane Gipson - Last Filed: 08/01/18 02:08> Vital Signs 07/30/18 07/31/18 07/31/18 17:39 04:20 07:53 Temperature 97.7 F 98.7 F 98.0 F Pulse Rate 116 H 94 77 Respiratory 20 18 18 Rate Blood Pressure 125/79 129/90 127/78 O2 Sat by Pulse 93 L 94 L 96 Oximetry - Reevaluation(s) Reevaluation #1: 07/30/18 23:00 57-year-old male with depression, alcoholism, and suicidal ideation. I was able to complete a clinical certification for this patient. Currently awaiting EPS final disposition. (Wesly Foster) EKG Findings - EKG Comments: EKG Findings:: EKG obtained at 1853 shows normal sinus rhythm with an incomplete right bundle branch block. Ventricular rate is 84, HI interval 136, QRS duration 100, QT 384, QTC 453. No evidence of ST elevation or depression. <Adriane Gipson - Last Filed: 08/01/18 02:08> Medical Decision Making - Lab Data Result diagrams: 07/30/18 19:09 07/30/18 19:09 <Wesly Foster - Last Filed: 07/30/18 23:00> - Lab Data Result diagrams: 07/30/18 19:09 07/30/18 19:09 <Adriane Gipson - Last Filed: 08/01/18 02:08> - Medical Decision Making Patient presented to the emergency department today for evaluation of chronic pain, dizziness, and suicidal ideation. Physical examination is relatively unremarkable. Patient neurologically intact. Labs reviewed and are unremarkable. Patient was seen and evaluated by emergency psychiatric services. Assault that he would benefit from inpatient mission. Do not have beds available so he is pending transfer. Care will be handed over to my attending Dr. Brown to follow until disposition. (Adriane Gipson) - Lab Data Lab Results 07/30/18 07/30/18 07/30/18 Range/Units 19:09 19:09 19:09 WBC 12.1 H (3.8-10.6) k/uL RBC 4.23 L (4.30-5.90) m/uL Hgb 13.7 (13.0-17.5) gm/dL Hct 41.6 (39.0-53.0) % MCV 98.5 (80.0-100.0) fL MCH 32.5 (25.0-35.0) pg MCHC 33.0 (31.0-37.0) g/dL RDW 13.0 (11.5-15.5) % Plt Count 223 (150-450) k/uL Neutrophils % 76 % Lymphocytes % 15 % Monocytes % 3 % Eosinophils % 5 % Basophils % 0 % Neutrophils # 9.1 H (1.3-7.7) k/uL Lymphocytes # 1.9 (1.0-4.8) k/uL Monocytes # 0.4 (0-1.0) k/uL Eosinophils # 0.6 (0-0.7) k/uL Basophils # 0.0 (0-0.2) k/uL PT (9.0-12.0) sec INR (<1.2) APTT (22.0-30.0) sec Sodium 139 (137-145) mmol/L Potassium 4.1 (3.5-5.1) mmol/L Chloride 103 (98-107) mmol/L Carbon Dioxide 29 (22-30) mmol/L Anion Gap 7 mmol/L BUN 18 (9-20) mg/dL Creatinine 0.57 L (0.66-1.25) mg/dL Est GFR (CKD-EPI)AfAm >90 (>60 ml/min/1.73 sqM) Est GFR (CKD-EPI)NonAf >90 (>60 ml/min/1.73 sqM) Glucose 99 (74-99) mg/dL Calcium 9.8 (8.4-10.2) mg/dL Total Bilirubin 0.6 (0.2-1.3) mg/dL AST 33 (17-59) U/L ALT 28 (21-72) U/L Alkaline Phosphatase 71 (38-126) U/L Total Creatine Kinase 155 (55-170) U/L CK-MB (CK-2) 1.1 (0.0-2.4) ng/mL CK-MB (CK-2) Rel Index 0.7 Troponin I <0.012 (0.000-0.034) ng/mL Total Protein 7.0 (6.3-8.2) g/dL Albumin 4.1 (3.5-5.0) g/dL Urine Color Urine Appearance (Clear) Urine pH (5.0-8.0) Ur Specific Nelson (1.001-1.035) Urine Protein (Negative) Urine Glucose (UA) (Negative) Urine Ketones (Negative) Urine Blood (Negative) Urine Nitrite (Negative) Urine Bilirubin (Negative) Urine Urobilinogen (<2.0) mg/dL Ur Leukocyte Esterase (Negative) Urine Opiates Screen (NotDetected) Ur Oxycodone Screen (NotDetected) Urine Methadone Screen (NotDetected) Ur Propoxyphene Screen (NotDetected) Ur Barbiturates Screen (NotDetected) U Tricyclic Antidepress (NotDetected) Ur Phencyclidine Scrn (NotDetected) Ur Amphetamines Screen (NotDetected) U Methamphetamines Scrn (NotDetected) U Benzodiazepines Scrn (NotDetected) Urine Cocaine Screen (NotDetected) U Marijuana (THC) Screen (NotDetected) 07/30/18 07/30/18 Range/Units 19:09 19:09 WBC (3.8-10.6) k/uL RBC (4.30-5.90) m/uL Hgb (13.0-17.5) gm/dL Hct (39.0-53.0) % MCV (80.0-100.0) fL MCH (25.0-35.0) pg MCHC (31.0-37.0) g/dL RDW (11.5-15.5) % Plt Count (150-450) k/uL Neutrophils % % Lymphocytes % % Monocytes % % Eosinophils % % Basophils % % Neutrophils # (1.3-7.7) k/uL Lymphocytes # (1.0-4.8) k/uL Monocytes # (0-1.0) k/uL Eosinophils # (0-0.7) k/uL Basophils # (0-0.2) k/uL PT 9.5 (9.0-12.0) sec INR 1.0 (<1.2) APTT 23.3 (22.0-30.0) sec Sodium (137-145) mmol/L Potassium (3.5-5.1) mmol/L Chloride (98-107) mmol/L Carbon Dioxide (22-30) mmol/L Anion Gap mmol/L BUN (9-20) mg/dL Creatinine (0.66-1.25) mg/dL Est GFR (CKD-EPI)AfAm (>60 ml/min/1.73 sqM) Est GFR (CKD-EPI)NonAf (>60 ml/min/1.73 sqM) Glucose (74-99) mg/dL Calcium (8.4-10.2) mg/dL Total Bilirubin (0.2-1.3) mg/dL AST (17-59) U/L ALT (21-72) U/L Alkaline Phosphatase (38-126) U/L Total Creatine Kinase (55-170) U/L CK-MB (CK-2) (0.0-2.4) ng/mL CK-MB (CK-2) Rel Index Troponin I (0.000-0.034) ng/mL Total Protein (6.3-8.2) g/dL Albumin (3.5-5.0) g/dL Urine Color Colorless Urine Appearance Clear (Clear) Urine pH 7.0 (5.0-8.0) Ur Specific Nelson 1.004 (1.001-1.035) Urine Protein Negative (Negative) Urine Glucose (UA) Negative (Negative) Urine Ketones Negative (Negative) Urine Blood Negative (Negative) Urine Nitrite Negative (Negative) Urine Bilirubin Negative (Negative) Urine Urobilinogen <2.0 (<2.0) mg/dL Ur Leukocyte Esterase Negative (Negative) Urine Opiates Screen Not Detected (NotDetected) Ur Oxycodone Screen Detected H (NotDetected) Urine Methadone Screen Not Detected (NotDetected) Ur Propoxyphene Screen Not Detected (NotDetected) Ur Barbiturates Screen Not Detected (NotDetected) U Tricyclic Antidepress Not Detected (NotDetected) Ur Phencyclidine Scrn Not Detected (NotDetected) Ur Amphetamines Screen Not Detected (NotDetected) U Methamphetamines Scrn Not Detected (NotDetected) U Benzodiazepines Scrn Detected H (NotDetected) Urine Cocaine Screen Not Detected (NotDetected) U Marijuana (THC) Screen Not Detected (NotDetected) Disposition <Wesly Foster N - Last Filed: 07/30/18 23:00> - Out of Hospital Transfer - Req. Specs Out of Hospital Transfer - Requested Specifics: Psychiatric Non-ICU <Adriane Gipson - Last Filed: 08/01/18 02:08> Clinical Impression: Suicidal ideation Disposition: TRANSFER TO PSYCH HOSP/UNIT Condition: Serious
[2018-07-30 19:22] LABS: Appearance,Urine Clear (Clear); Basophils % (A) 0 %; Bilirubin,Urine Negative (Negative); Blood,Urine Negative (Negative); Color,Urine Colorless; Eosinophils # (A) 0.6 k/uL (0-0.7); Eosinophils % (A) 5 %; Glucose,Urine (UA) Negative (Negative); HCT 41.6 % (39.0-53.0); HGB 13.7 gm/dL (13.0-17.5); Ketones,Urine Negative (Negative); Leukocyte Esterase,Urine Negative (Negative); Lymphocytes # (A) 1.9 k/uL (1.0-4.8); Lymphocytes % (A) 15 %; MCH 32.5 pg (25.0-35.0); MCV 98.5 fL (80.0-100.0); Mean Platelet Volume 7.1; Monocytes # (A) 0.4 k/uL (0-1.0); Monocytes % (A) 3 %; Neutrophils # (A) 9.1 k/uL (1.3-7.7); Neutrophils % (A) 76 %; Nitrite,Urine Negative (Negative); Platelet Count 223 k/uL (150-450); Protein,Urine Negative (Negative); RBC 4.23 m/uL (4.30-5.90); Specific Gravity,Urine 1.004 (1.001-1.035); Urobilinogen,Urine <2.0 mg/dL (<2.0); WBC 12.1 k/uL (3.8-10.6)
[2018-07-30 19:31] LABS: ALT 28 U/L (21-72); AST 33 U/L (17-59); Albumin 4.1 g/dL (3.5-5.0); Alkaline Phosphatase 71 U/L (38-126); Anion Gap 7 mmol/L; Blood Urea Nitrogen 18 mg/dL (9-20); Calcium 9.8 mg/dL (8.4-10.2); Carbon Dioxide 29 mmol/L (22-30); Chloride 103 mmol/L (98-107); Glucose 99 mg/dL (74-99); Partial Thromboplastin Time 23.3 sec (22.0-30.0); Potassium 4.1 mmol/L (3.5-5.1); Prothrombin Time 9.5 sec (9.0-12.0); Sodium 139 mmol/L (137-145); Total Bilirubin 0.6 mg/dL (0.2-1.3)
[2018-07-30 19:33] LABS: Amphetamine Screen,Urine Not Detected (NotDetected); Barbiturate Screen,Urine Not Detected (NotDetected); Benzodiazepines Screen,Urine Detected (NotDetected); Cocaine Screen,Urine Not Detected (NotDetected); Methadone Screen, Urine Not Detected (NotDetected); Opiate Screen,Urine Not Detected (NotDetected); Oxycodone Screen, Urine Detected (NotDetected); Phencyclidine Screen,Urine Not Detected (NotDetected); Tricyclic Antidepressant,Urine Not Detected (NotDetected); Urn Cannabinoid Scrn Not Detected (NotDetected)
[2018-07-30 19:35] LABS: Creatine Kinase 155 U/L (55-170)
--- NOTE | 2018-07-30 19:40 | XR ---
EXAMINATION TYPE: XR chest 1V DATE OF EXAM: 07/30/2018 COMPARISON: 06/18/2018 HISTORY: Dizziness TECHNIQUE: Single frontal view of the chest is obtained. FINDINGS: There is no heart failure nor confluent pneumonic infiltrate. Costophrenic angles are tj r. There is significant deformity of the right shoulder with old ununited humeral neck fracture. IMPRESSION: No active cardiopulmonary disease. Normal heart. No change.
[2018-07-30 19:49] LABS: Creatine Kinase MB 1.1 ng/mL (0.0-2.4); Troponin I <0.012 ng/mL (0.000-0.034)
[2018-07-30] MEDS ORDERED: oxyCODONE-APAP 10-325MG 1 EACH TAB PO STA (21:40)
[2018-07-30] MEDS ORDERED: ALPRAZolam 1 MG TAB PO STA (21:40)
[2018-07-31] MEDS ORDERED: LORazepam 1 MG TAB PO STA (04:36)
[2018-07-31] MEDS: oxyCODONE-APAP 10-325MG 1 EACH TAB PO PRN ×3 (04:57→19:17)
--- NOTE | 2018-07-31 07:35 | CDI ---
Dear Wesly Foster: Please do addendum Clinical Impression and Disposition. Thank you, Abigail Hartmann, Sports Physician. If you have any questions, please contact Plant Health Manager at [phone]. [facility]
[2018-07-31] MEDS ORDERED: ZIPRASIDONE 20 MG VIAL IM PRN (15:56)
[2018-07-31] MEDS ORDERED: MAG HYDROX/AL HYDROX/SIMETH 30 ML CUP PO PRN (15:56)
[2018-07-31] MEDS ORDERED: ACETAMINOPHEN TAB 325 MG TAB PO PRN (15:56)
[2018-07-31] MEDS ORDERED: MAGNESIUM HYDROXIDE 2,400 MG/10 ML CUP PO PRN (15:56)
[2018-07-31] MEDS ORDERED: LORazepam 2 MG/ML INJ IM PRN (16:13)
[2018-07-31] MEDS: LORazepam 1 MG TAB PO PRN ×2 (16:39→18:17)
[2018-07-31] MEDS: MECLIZINE 25 MG TAB PO SCH (16:41)
--- NOTE | 2018-07-31 18:27 | P.HPIM ---
History of Present Illness H&P Date: 07/31/18 The patient is a 57 yo M w/ a PMH of epilepsy, alcohol abuse, active smoker (1 PPD) and R proximal humeral fracture (dx 03/2018) presented to the ED w/ suicidality. The patient notes that he was at [facility] since Friday07/25/18 when he presented there after a seizure episode. He notes that he had an extensive w/u there including receiving a cast on the L arm though doesn't recall anything about a clavicular/collar bone fracture. Throughout the interview, the patient was guarded and at times aggressive and repeatedly demanded that his pain medications be increased and that he be given something to "calm down". He notes that after having gone through everything at [facility], he was feeling really depressed and had thoughts of hurting himself. He notes compliance to his Keppra which he received from his PMD, though he isn't able to recall his name or how long it has been since he last saw him. Reports last seizure episode on 07/25/18. He was diagnosed w/ R proximal humeral fracture in 03/2018 and given a sling with f/u w/ Orthopedic surgery in 1 month. He missed his f/u appt and was again seen in the ED in 05/2018 when he again had documented displaced fracture of R humerus. He also endorsed chronic lower back pain. At time of interview, he endorsed pain everywhere with no particular alleviating or exacerbating factors. The patient is homeless and endorsed drinking 1 pint of vodka daily and smoking 1 PPD though denied any illicit substance use. He otherwise denied fever, chills, chest pain, SOB, nausea, vomiting, dizziness, headache, dysuria, diarrhea, abdominal pain, or visual changes. Review of Systems Pertinent positives and negatives as discussed in HPI, a complete review of systems was performed and all other systems are negative. Past Medical History Past Medical History: Liver Disease, Seizure Disorder Additional Past Medical History / Comment(s): patient not sure if he has liver disease History of Any Multi-Drug Resistant Organisms: None Reported Past Surgical History: No Surgical Hx Reported Additional Past Surgical History / Comment(s): Tooth extraction with anesthesia Past Anesthesia/Blood Transfusion Reactions: Unable to Obtain Additional Past Anesthesia/Blood Transfusion Reaction / Comment(s): Pt has never had surgery. Past Psychological History: Anxiety, Depression Smoking Status: Current every day smoker Past Alcohol Use History: Abuse, Daily Past Drug Use History: None Reported - Past Family History Mother Family Medical History: Cancer Additional Family Medical History / Comment(s): Mother is . She had lung cancer. Medications and Allergies Home Medications Medication Instructions Recorded Confirmed Type chlordiazePOXIDE HCl [Librium] 25 mg PO TID 07/30/18 07/30/18 History levETIRAcetam [Keppra] 750 mg PO BID 07/30/18 07/30/18 History oxyCODONE-APAP 10-325MG [Percocet 1 tab PO QID PRN 07/30/18 07/30/18 History 10-325 mg] Allergies Allergy/AdvReac Type Severity Reaction Status Date / Time codeine AdvReac Itching Verified 07/30/18 18:30 ibuprofen [From Motrin] AdvReac Unknown Verified 07/30/18 18:30 Physical Exam Vitals: Vital Signs Temp Pulse Pulse Resp BP BP Pulse Ox 07/31/18 17:07 96.4 F L 07/31/18 17:04 77 16 115/68 07/31/18 07:53 98.0 F 77 18 127/78 96 07/31/18 04:20 98.7 F 94 18 129/90 94 L Intake and Output 07/31/18 07/31/18 07/31/18 06:59 14:59 22:59 Other: Weight 61.26 kg General: [non toxic], [no distress], [appears older than age], [normal weight] Derm: [excoriations over glendy LEs] [no unusual ecchymoses], [warm], [dry] Head: [atraumatic], [normocephalic], [symmetric] Eyes: [EOMI], [no lid lag], [anicteric sclera], [pupils equal round reactive to light] ENT: [Nose and ears atraumatic], [no thrush], [no pharyngeal erythema] Neck: [No thyromegaly], [no cervical lymphadenopathy], [trachea midline], [ supple] Mouth: [no lip lesion], [mucus membranes moist] Cardiovascular: [S1S2 reg], [no murmur], [positive posterior tibial pulse bilateral], [no edema], [capillary refill less than 2 seconds] Lungs: [CTA bilateral], [no rhonchi, no rales] , [no accessory muscle use] Abdominal: [soft], [ nontender to palpation], [no guarding], [no appreciable organomegaly], [normal bowel sounds] Ext: R shoulder decreased ROM, w/ R arm and shoulder tenderness to palpation, no erythema, swelling, wamrth, or overlying skin deformity notes, [no gross muscle atrophy], [muscle strength 5 out of 5 in all 4 extremities grossly aside from RUE proximally weak w/ decreased ROM, distal R arm strength 5/5], [ no contractures], Neuro: [ CN II-XI grossly intact], [light touch intact all 4 extremities], [ finger to nose within normal limits], Psych: [Alert], [oriented], [appropriate affect] Results CBC & Chem 7: 07/30/18 19:09 07/30/18 19:09 Labs: Abnormal Lab Results - Last 24 Hours (Table) 07/30/18 07/30/18 07/30/18 Range/Units 19:09 19:09 19:09 WBC 12.1 H (3.8-10.6) k/uL RBC 4.23 L (4.30-5.90) m/uL Neutrophils # 9.1 H (1.3-7.7) k/uL Creatinine 0.57 L (0.66-1.25) mg/dL Ur Oxycodone Screen Detected H (NotDetected) U Benzodiazepines Scrn Detected H (NotDetected) Assessment and Plan Plan: 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 We will follow peripherally. Do not hesitate to contact us with questions. Someone can be reached from the [facility] hospitalist group at all hours of the day at [phone].
[2018-07-31] MEDS ORDERED: MELOXICAM 7.5 MG TAB PO SCH (21:00)
[2018-08-01] MEDS: LORazepam 1 MG TAB PO PRN ×3 (02:25→18:02)
[2018-08-01] MEDS: oxyCODONE-APAP 10-325MG 1 EACH TAB PO PRN ×3 (03:07→19:02)
[2018-08-01] MEDS: MECLIZINE 25 MG TAB PO SCH (08:50)
--- NOTE | 2018-08-01 09:39 | P.HP ---
Psychiatric H&P - . H&P Date: 08/01/18 History & Physical: Allergies Allergy/AdvReac Type Severity Reaction Status Date / Time codeine AdvReac Itching Verified 07/30/18 18:30 ibuprofen [From Motrin] AdvReac Unknown Verified 07/30/18 18:30 Vital Signs Temp 97.6 F 08/01/18 02:33 Pulse 106 H 08/01/18 02:33 Resp 14 08/01/18 02:33 BP 114/77 08/01/18 02:33 Pulse Ox 96 07/31/18 07:53 Intake & Output 07/31/18 08/01/18 08/01/18 18:59 06:59 18:59 Weight 61.26 kg Laboratory Last Values WBC 12.1 k/uL (3.8-10.6) H 07/30/18 19:09 RBC 4.23 m/uL (4.30-5.90) L 07/30/18 19:09 Hgb 13.7 gm/dL (13.0-17.5) 07/30/18 19:09 Hct 41.6 % (39.0-53.0) 07/30/18 19:09 MCV 98.5 fL (80.0-100.0) 07/30/18 19:09 MCH 32.5 pg (25.0-35.0) 07/30/18 19:09 MCHC 33.0 g/dL (31.0-37.0) 07/30/18 19:09 RDW 13.0 % (11.5-15.5) 07/30/18 19:09 Plt Count 223 k/uL (150-450) 07/30/18 19:09 Neutrophils % 76 % 07/30/18 19:09 Lymphocytes % 15 % 07/30/18 19:09 Monocytes % 3 % 07/30/18 19:09 Eosinophils % 5 % 07/30/18 19:09 Basophils % 0 % 07/30/18 19:09 Neutrophils # 9.1 k/uL (1.3-7.7) H 07/30/18 19:09 Lymphocytes # 1.9 k/uL (1.0-4.8) 07/30/18 19:09 Monocytes # 0.4 k/uL (0-1.0) 07/30/18 19:09 Eosinophils # 0.6 k/uL (0-0.7) 07/30/18 19:09 Basophils # 0.0 k/uL (0-0.2) 07/30/18 19:09 PT 9.5 sec (9.0-12.0) 07/30/18 19:09 INR 1.0 (<1.2) 07/30/18 19:09 APTT 23.3 sec (22.0-30.0) 07/30/18 19:09 Sodium 139 mmol/L (137-145) 07/30/18 19:09 Potassium 4.1 mmol/L (3.5-5.1) 07/30/18 19:09 Chloride 103 mmol/L (98-107) 07/30/18 19:09 Carbon Dioxide 29 mmol/L (22-30) 07/30/18 19:09 Anion Gap 7 mmol/L 07/30/18 19:09 BUN 18 mg/dL (9-20) 07/30/18 19:09 Creatinine 0.57 mg/dL (0.66-1.25) L 07/30/18 19:09 Est GFR (CKD-EPI)AfAm >90 (>60 ml/min/1.73 sqM) 07/30/18 19:09 Est GFR (CKD-EPI)NonAf >90 (>60 ml/min/1.73 sqM) 07/30/18 19:09 Glucose 99 mg/dL (74-99) 07/30/18 19:09 Calcium 9.8 mg/dL (8.4-10.2) 07/30/18 19:09 Total Bilirubin 0.6 mg/dL (0.2-1.3) 07/30/18 19:09 AST 33 U/L (17-59) 07/30/18 19:09 ALT 28 U/L (21-72) 07/30/18 19:09 Alkaline Phosphatase 71 U/L (38-126) 07/30/18 19:09 Total Creatine Kinase 155 U/L (55-170) 07/30/18 19:09 CK-MB (CK-2) 1.1 ng/mL (0.0-2.4) 07/30/18 19:09 CK-MB (CK-2) Rel Index 0.7 07/30/18 19:09 Troponin I <0.012 ng/mL (0.000-0.034) 07/30/18 19:09 Total Protein 7.0 g/dL (6.3-8.2) 07/30/18 19:09 Albumin 4.1 g/dL (3.5-5.0) 07/30/18 19:09 TSH 1.890 mIU/L (0.465-4.680) 07/30/18 19:09 Urine Color Colorless 07/30/18 19:09 Urine Appearance Clear (Clear) 07/30/18 19: Urine pH 7.0 (5.0-8.0) 07/30/18 19: Ur Specific [place] 1.004 (1.001-1.035) 07/30/18 19:09 Urine Protein Negative (Negative) 07/30/18 19:09 Urine Glucose (UA) Negative (Negative) 07/30/18 19:09 Urine Ketones Negative (Negative) 07/30/18 19:09 Urine Blood Negative (Negative) 07/30/18 19: Urine Nitrite Negative (Negative) 07/30/18 19:09 Urine Bilirubin Negative (Negative) 07/30/18 19:09 Urine Urobilinogen <2.0 mg/dL (<2.0) 07/30/18 19:09 Ur Leukocyte Esterase Negative (Negative) 07/30/18 19:09 Urine Opiates Screen Not Detected (NotDetected) 07/30/18 19:09 Ur Oxycodone Screen Detected (NotDetected) H 07/30/18 19:09 Urine Methadone Screen Not Detected (NotDetected) 07/30/18 19:09 Ur Propoxyphene Screen Not Detected (NotDetected) 07/30/18 19:09 Ur Barbiturates Screen Not Detected (NotDetected) 07/30/18 19:09 U Tricyclic Antidepress Not Detected (NotDetected) 07/30/18 19:09 Ur Phencyclidine Scrn Not Detected (NotDetected) 07/30/18 19:09 Ur Amphetamines Screen Not Detected (NotDetected) 07/30/18 19:09 U Methamphetamines Scrn Not Detected (NotDetected) 07/30/18 19:09 U Benzodiazepines Scrn Detected (NotDetected) H 07/30/18 19:09 Urine Cocaine Screen Not Detected (NotDetected) 07/30/18 19:09 U Marijuana (THC) Screen Not Detected (NotDetected) 07/30/18 19:09 08/01/18 09:32 IDENTIFYING DATA: 57-year-old male patient HPI: Patient admitted to the inpatient psychiatric unit on a voluntary basis with concerns regarding thoughts of suicide. Per chart history patient presented to the emergency room and per EPS assessment was describing multiple recent stressors of being diagnosed with seizures, can't drive and girlfriend breaking up with him. He was admitting to thoughts of suicide in the emergency room is was subsequently admitted for stabilization. Patient currently states that he is in pain, makes reference to medication being taken away from him. We did discuss that he is on pain medication and Ativan as needed. He says he is not sleeping and not eating and in pain. He does not wish to proceed with the interview today. PAST PSYCHIATRIC HISTORY: Not known at this time. PMH: Per chart history liver disease, seizure disorder ALLERGIES: Codeine, ibuprofen MEDICATIONS: Tylenol when necessary, Maalox when necessary, folate, Keppra, Ativan when necessary, milk of magnesia when necessary, Antivert, Percocet when necessary, vitamin B1, Geodon when necessary CHEMICAL DEPENDENCY HISTORY: Not known at this time, patient not wanting to proceed with the interview today. FAMILY PSYCHIATRIC HISTORY: Not known at this time, patient not wanting to proceed with the interview today. FAMILY CHEMICAL DEPENDENCY HISTORY: Not known at this time, patient not wanting to proceed with the interview today. SOCIAL HISTORY: Per chart history patient reported that his girlfriend broke up with him. Additional history not known at this time, patient not wanting to proceed with the interview today. MENTAL STATUS EXAM: He is alert, cooperative with coming to the interview room, states standing during the interview. He says he is not sleeping not eating and in pain. Patient does not wish to proceed with the interview at this time. He did not make any suicidal or homicidal references. He has not verbalize any hallucinations. STRENGTHS/WEAKNESSES: Not known at this time, patient not wanting to proceed with the interview today. INTELLECTUAL FUNCTIONING: Difficult to assess due to patient not wanting to proceed with interview. IMPRESSIONS: Unspecified depressive disorder PLAN: Patient will be admitted to the inpatient psychiatric unit [facility] on a voluntary basis. We he will be placed on SP 15 minute precautions. Baseline laboratory workup will be done the patient and medical consultation will be ordered. Patient does not wanting to proceed with the interview today. We'll continue to assess and recent Friday the initial interview tomorrow. We will look at appropriate psychotropic medication after able to further assess his status. Continue to monitor regarding any suicidal ideations. We will look into any possible support systems. Estimated length of stay is 5-7 days. Prognosis is guarded.
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
[2018-08-01] MEDS: FOLIC ACID 1 MG TAB PO SCH (12:07)
[2018-08-01] MEDS: THIAMINE 100 MG TAB PO SCH (12:07)
[2018-08-02] MEDS: LORazepam 1 MG TAB PO PRN ×3 (01:06→18:03)
[2018-08-02 01:13] VITALS: TEMP 98
[2018-08-02] MEDS: oxyCODONE-APAP 10-325MG 1 EACH TAB PO PRN ×3 (02:04→18:03)
[2018-08-02] MEDS: MECLIZINE 25 MG TAB PO SCH (08:34)
[2018-08-02] MEDS: THIAMINE 100 MG TAB PO SCH (12:11)
[2018-08-02] MEDS: FOLIC ACID 1 MG TAB PO SCH (12:11)
--- NOTE | 2018-08-02 14:08 | P.PN ---
Progress Note - Text Progress Note Date: 08/02/18 Interval history: Patient is seen again in cross coverage today. He initially wants to meet out in the hallway, discussed with him that I would not want to meet with him in the hallway due to privacy for himself. He is agreeable to come into the interview room and holds the door open for a while after further discussing he is agreeable to meet in the interview room with the door closed. He describes his mood is aggravated. He makes references to pain. He seems initially interested when I mention antidepressant treatment but then when I mention Cymbalta he terminates the interview. Mental status exam: He is alert, describes his mood is aggravated. He does not make any reference to thoughts of harm to self or others. He terminates the session after I mention Cymbalta. Plan: Continue to monitor the patient status. Dr. Adams will be initiating care of this patient starting tomorrow.
[2018-08-03] MEDS: LORazepam 1 MG TAB PO PRN ×2 (03:22→11:03)
[2018-08-03] MEDS: oxyCODONE-APAP 10-325MG 1 EACH TAB PO PRN ×2 (03:23→11:03)
[2018-08-03 03:32] VITALS: BP 100/71; PULSE 102; RESP 12
[2018-08-03] MEDS: MECLIZINE 25 MG TAB PO SCH (08:47)
[2018-08-03] MEDS: FOLIC ACID 1 MG TAB PO SCH (11:59)
[2018-08-03] MEDS: THIAMINE 100 MG TAB PO SCH (11:59)
--- NOTE | 2018-08-03 14:45 | P.DS ---
Providers Date of admission: 07/31/18 14:55 Expected date of discharge: 08/03/18 Attending physician: Rivas Adams DO Consults: 07/31/18 16:14 Consult Physician Routine Consulting Provider: Amanda Alvarez Consult Reason/Comments: H &P & MEDICAL MANAGEMENT Do you want consulting provider notified?: Already Contacted Primary care physician: Stated None - Discharge Diagnosis(es) (1) Closed fracture of right proximal humerus IDENTIFYING DATA: 57-year-old male patient HPI: Patient admitted to the inpatient psychiatric unit on a voluntary basis with concerns regarding thoughts of suicide. Per chart history patient presented to the emergency room and per EPS assessment was describing multiple recent stressors of being diagnosed with seizures, can't drive and girlfriend breaking up with him. He was admitting to thoughts of suicide in the emergency room is was subsequently admitted for stabilization. Patient currently states that he is in pain, makes reference to medication being taken away from him. We did discuss that he is on pain medication and Ativan as needed. He says he is not sleeping and not eating and in pain. He does not wish to proceed with the interview today. PAST PSYCHIATRIC HISTORY: Not known at this time. PMH: Per chart history liver disease, seizure disorder ALLERGIES: Codeine, ibuprofen MEDICATIONS: Tylenol when necessary, Maalox when necessary, folate, Keppra, Ativan when necessary, milk of magnesia when necessary, Antivert, Percocet when necessary, vitamin B1, Geodon when necessary SOCIAL HISTORY: Per chart history patient reported that his girlfriend broke up with him. Additional history not known at this time, patient not wanting to proceed with the interview today. Current Visit: Yes Status: Acute Priority: Low (2) Altered mental status Current Visit: No Status: Acute Priority: Low (3) Mild depressive disorder Current Visit: Yes Status: Acute Priority: Low Hospital Course: IDENTIFYING DATA: 57-year-old male patient HPI: Patient admitted to the inpatient psychiatric unit on a voluntary basis with concerns regarding thoughts of suicide. The patient presents alert, pleasant, and cooperative. There calmly seated without any agitated behavior. [He] reports that [his] mood is good. Affect is congruent and euthymic. [He] deny having any suicidal or homicidal ideation intent or plan. [He] denies any auditory or visual hallucinations. There is no evidence of any delusional thought content. [His] thought process is linear and goal-directed. [His] speech is fluent and nonpressured. [His] memory and concentration is grossly intact for the purposes of this session. IMPRESSIONS: Unspecified depressive disorder PLAN and course: Patient will be admitted to the inpatient psychiatric unit [facility] on a voluntary basis. We he will be placed on SP 15 minute precautions. Baseline laboratory workup will be done the patient and medical consultation will be ordered. He currently is not suicidal homicidal thoughts, discharge today since he is not willing to participate and feels that he does not along here. He does complain of pain in his hand and other body parts including the shoulder and wants treatment for that here We do not do that in the psychiatric unit. Pertinent Studies: He was positive for oxycodone which he was taking. No other laboratory were outstanding and within normal limits. Patient Condition at Discharge: Stable Plan - Discharge Summary New Discharge Prescriptions: New oxyCODONE-APAP 10-325MG [Percocet 10-325 mg] 1 each PO Q8HR PRN 30 Days #45 tab PRN Reason: Pain Meclizine [Antivert] 25 mg PO DAILY 30 Days #30 tab Continue levETIRAcetam [Keppra] 750 mg PO BID 30 Days #60 tab Discontinued oxyCODONE-APAP 10-325MG [Percocet 10-325 mg] 1 tab PO QID PRN PRN Reason: Pain chlordiazePOXIDE HCl [Librium] 25 mg PO TID Discharge Medication List Meclizine [Antivert] 25 mg PO DAILY 30 Days #30 tab 08/03/18 [Rx] levETIRAcetam [Keppra] 750 mg PO BID 30 Days #60 tab 08/03/18 [Rx] oxyCODONE-APAP 10-325MG [Percocet 10-325 mg] 1 each PO Q8HR PRN 30 Days #45 tab 08/03/18 [Rx] Follow up Appointment(s)/Referral(s): [facility] [Outside] - 1-2 Days (Walk In Intake Friday 8:30-3pm Friday 10:30-5pm Friday 8:30-3pm) [facility] [NON-STAFF] - 1 Week Patient Instructions/Handouts: How to Stop Smoking (GEN), Depression (GEN), Suicide Prevention (GEN) Activity/Diet/Wound Care/Special Instructions: Activity and diet as tolerated. Avoid the use of street drugs and alcohol. Take all medications as prescribed. When you are in need of refills on your medications please contact your medical provider and/or outpatient psychiatrist to have this done. Please go to scheduled outpatient appointment for aftercare treatment. If symptoms return or become worse, call the crisis line at [phone] and/or go to the nearest emergency room for evaluation. Discharge Disposition: HOME SELF-CARE
== END 2018-08-03 15:02 | disposition home or self-care (01) | DRG 881 ==
LOC: EC 17:36 → 3MHU 07-31 14:55
PROVIDERS: ADMIT Psychiatry & Neurology Psychiatry; ATTEND Psychiatry & Neurology Psychiatry
DX: F32.9 Major depressive disorder, single episode, unspecified (principal); R45.851 Suicidal ideations; S42.201K Unspecified fracture of upper end of right humerus, subsequent encounter for fracture with nonunion; R42 Dizziness and giddiness; F10.10 Alcohol abuse, uncomplicated; F17.200 Nicotine dependence, unspecified, uncomplicated; F41.9 Anxiety disorder, unspecified; G40.909 Epilepsy, unspecified, not intractable, without status epilepticus; G89.29 Other chronic pain; K76.9 Liver disease, unspecified; M54.5 Low back pain; R07.89 Other chest pain; R20.2 Paresthesia of skin; Z79.899 Other long term (current) drug therapy; Z88.6 Allergy status to analgesic agent; Z88.5 Allergy status to narcotic agent; I45.10 Unspecified right bundle-branch block; Z80.1 Family history of malignant neoplasm of trachea, bronchus and lung; V89.2XXD Person injured in unspecified motor-vehicle accident, traffic, subsequent encounter
CPT/HCPCS: 36415; 71045; 80053; 80177; 80306; 81003; 82550; 82553; 84443; 84484; 85025; 85610; 85730; 93005; 96360; 99285

== ENCOUNTER 2018-08-04 08:53 | Emergency (ER) | payer OTHER ==
--- NOTE | 2018-08-04 09:25 | ED ---
Psych HPI - General Source: patient, RN notes reviewed Mode of arrival: wheelchair Limitations: no limitations <Suresh Miller - Last Filed: 08/04/18 12:29> <Jv Varner - Last Filed: 08/05/18 13:34> - General Chief Complaint: Psychiatric Symptoms Stated Complaint: Mental Health Time Seen by Provider: 08/04/18 09:03 - History of Present Illness Initial Comments: 57-year-old male presents emergency Department chief complaint depression, suicidal ideation. Patient was discharged yesterday from the psychiatric floor. Patient states that he feels that he wasn't ready to leave states that he feels severely depressed and wants to harm himself. Patient states that he suffered with this since age 17. Patient states he has a plan to harm himself but will not disclose what this is. Patient denies any physical complaints. Denies alcohol or drug abuse. Patient was started on new medications states he didn't fill these medications. (Suresh Miller) - Related Data Home Medications Medication Instructions Recorded Confirmed oxyCODONE-APAP 10-325MG [Percocet 1 tab PO Q8HR PRN 08/04/18 08/04/18 10-325 mg] Previous Rx's Medication Instructions Recorded Meclizine [Antivert] 25 mg PO DAILY 30 Days #30 tab 08/03/18 levETIRAcetam [Keppra] 750 mg PO BID 30 Days #60 tab 08/03/18 Allergies Allergy/AdvReac Type Severity Reaction Status Date / Time codeine AdvReac Itching Verified 08/04/18 09:12 ibuprofen [From Motrin] AdvReac Unknown Verified 08/04/18 09:12 Review of Systems ROS Other: All systems not noted in ROS Statement are negative. <Suresh Miller - Last Filed: 08/04/18 12:29> ROS Other: All systems not noted in ROS Statement are negative. <Jv Varner - Last Filed: 08/05/18 13:34> ROS Statement: Those systems with pertinent positive or pertinent negative responses have been documented in the HPI. Past Medical History Past Medical History: Liver Disease, Seizure Disorder Additional Past Medical History / Comment(s): patient not sure if he has liver disease History of Any Multi-Drug Resistant Organisms: None Reported Past Surgical History: No Surgical Hx Reported Additional Past Surgical History / Comment(s): Tooth extraction with anesthesia Past Anesthesia/Blood Transfusion Reactions: Unable to Obtain Additional Past Anesthesia/Blood Transfusion Reaction / Comment(s): Pt has never had surgery. Past Psychological History: Anxiety, Depression Smoking Status: Current every day smoker Past Alcohol Use History: None Reported Past Drug Use History: None Reported - Past Family History Mother Family Medical History: Cancer Additional Family Medical History / Comment(s): Mother is . She had lung cancer. <Suresh Miller - Last Filed: 08/04/18 12:29> General Exam Limitations: no limitations General appearance: alert, in no apparent distress Head exam: Present: atraumatic, normocephalic, normal inspection Respiratory exam: Present: normal lung sounds bilaterally. Absent: respiratory distress, wheezes, rales, rhonchi, stridor Cardiovascular Exam: Present: regular rate, normal rhythm, normal heart sounds. Absent: systolic murmur, diastolic murmur, rubs, gallop, clicks Extremities exam: Present: other (Splint noted on the left arm including digits 4 and 5) Neurological exam: Present: alert, oriented X3, CN II-XII intact Psychiatric exam: Present: depressed Skin exam: Present: warm, dry, intact, normal color. Absent: rash <Suresh Miller - Last Filed: 08/04/18 12:29> Course <Suresh Miller - Last Filed: 08/04/18 12:29> <Jv Varner - Last Filed: 08/05/18 13:34> Vital Signs 08/04/18 08/04/18 08/04/18 08:55 15:00 18:46 Temperature 97.8 F Pulse Rate 99 81 63 Respiratory 16 18 18 Rate Blood Pressure 133/91 110/83 120/76 O2 Sat by Pulse 93 L 94 L 96 Oximetry 08/05/18 08:47 Temperature 97.1 F L Pulse Rate 65 Respiratory 18 Rate Blood Pressure 121/87 O2 Sat by Pulse 97 Oximetry - Reevaluation(s) Reevaluation #1: 08/05/18 09:25 Patient requesting evaluation for his left hand. Patient originally states he was here for a fracture following a seizure. Patient then states he was actually at [facility]. Patient then states it was only a sprain per the information given to him. Splint removed from left hand. Patient does have following swelling left [place] side of the hand. Distally sensation is intact. Some decreased flexion left small finger secondary to patient pain. Patient requests further pain medication. Patient states he last received Percocet around 3 hours ago. X-ray reviewed. Splint replaced. Patient now complaining of discomfort of his right proximal humerus. Patient is concerned he may have injured this area again. Patient requesting further x-rays of this area. 08/05/18 13:31 Patient was reevaluated by mental health services. They did have psychiatrist come evaluate the patient who did negative certificate and states patient can be discharged. Patient again reevaluated and denies suicidal ideation and does contract for safety. (Jv Varner) Procedures - Orthopedic Splinting/Casting Injury #1 Side: left Upper Extremity Injury Location: short arm Upper Extremity Immobilizer: ulnar gutter <Jv Varner - Last Filed: 08/05/18 13:34> Medical Decision Making - Lab Data Result diagrams: 08/04/18 12:32 08/04/18 12:32 - Radiology Data Radiology results: image reviewed (X-ray left hand does show fracture of the fifth metacarpal) <Jv Varner - Last Filed: 08/05/18 13:34> - Lab Data Lab Results 08/04/18 08/04/18 08/04/18 Range/Units 10:44 10:44 12:32 WBC 7.6 (3.8-10.6) k/uL RBC 4.57 (4.30-5.90) m/uL Hgb 14.6 (13.0-17.5) gm/dL Hct 44.8 (39.0-53.0) % MCV 98.1 (80.0-100.0) fL MCH 31.9 (25.0-35.0) pg MCHC 32.5 (31.0-37.0) g/dL RDW 13.2 (11.5-15.5) % Plt Count 381 (150-450) k/uL Neutrophils % 55 % Lymphocytes % 30 % Monocytes % 8 % Eosinophils % 4 % Basophils % 0 % Neutrophils # 4.2 (1.3-7.7) k/uL Lymphocytes # 2.3 (1.0-4.8) k/uL Monocytes # 0.6 (0-1.0) k/uL Eosinophils # 0.3 (0-0.7) k/uL Basophils # 0.0 (0-0.2) k/uL Sodium (137-145) mmol/L Potassium (3.5-5.1) mmol/L Chloride (98-107) mmol/L Carbon Dioxide (22-30) mmol/L Anion Gap mmol/L BUN (9-20) mg/dL Creatinine (0.66-1.25) mg/dL Est GFR (CKD-EPI)AfAm (>60 ml/min/1.73 sqM) Est GFR (CKD-EPI)NonAf (>60 ml/min/1.73 sqM) Glucose (74-99) mg/dL Calcium (8.4-10.2) mg/dL Total Bilirubin (0.2-1.3) mg/dL AST (17-59) U/L ALT (21-72) U/L Alkaline Phosphatase (38-126) U/L Total Protein (6.3-8.2) g/dL Albumin (3.5-5.0) g/dL Urine Color Yellow Urine Appearance Clear (Clear) Urine pH 6.0 (5.0-8.0) Ur Specific T[place] 1.009 (1.001-1.035) Urine Protein Negative (Negative) Urine Glucose (UA) Negative (Negative) Urine Ketones Negative (Negative) Urine Blood Negative (Negative) Urine Nitrite Negative (Negative) Urine Bilirubin Negative (Negative) Urine Urobilinogen <2.0 (<2.0) mg/dL Ur Leukocyte Esterase Negative (Negative) Urine Opiates Screen Not Detected (NotDetected) Ur Oxycodone Screen Detected H (NotDetected) Urine Methadone Screen Not Detected (NotDetected) Ur Propoxyphene Screen Not Detected (NotDetected) Ur Barbiturates Screen Not Detected (NotDetected) U Tricyclic Antidepress Not Detected (NotDetected) Ur Phencyclidine Scrn Not Detected (NotDetected) Ur Amphetamines Screen Not Detected (NotDetected) U Methamphetamines Scrn Not Detected (NotDetected) U Benzodiazepines Scrn Detected H (NotDetected) Urine Cocaine Screen Not Detected (NotDetected) U Marijuana (THC) Screen Not Detected (NotDetected) 08/04/18 Range/Units 12:32 WBC (3.8-10.6) k/uL RBC (4.30-5.90) m/uL Hgb (13.0-17.5) gm/dL Hct (39.0-53.0) % MCV (80.0-100.0) fL MCH (25.0-35.0) pg MCHC (31.0-37.0) g/dL RDW (11.5-15.5) % Plt Count (150-450) k/uL Neutrophils % % Lymphocytes % % Monocytes % % Eosinophils % % Basophils % % Neutrophils # (1.3-7.7) k/uL Lymphocytes # (1.0-4.8) k/uL Monocytes # (0-1.0) k/uL Eosinophils # (0-0.7) k/uL Basophils # (0-0.2) k/uL Sodium 140 (137-145) mmol/L Potassium 4.8 (3.5-5.1) mmol/L Chloride 101 (98-107) mmol/L Carbon Dioxide 30 (22-30) mmol/L Anion Gap 9 mmol/L BUN 16 (9-20) mg/dL Creatinine 0.60 L (0.66-1.25) mg/dL Est GFR (CKD-EPI)AfAm >90 (>60 ml/min/1.73 sqM) Est GFR (CKD-EPI)NonAf >90 (>60 ml/min/1.73 sqM) Glucose 108 H (74-99) mg/dL Calcium 10.0 (8.4-10.2) mg/dL Total Bilirubin 0.4 (0.2-1.3) mg/dL AST 21 (17-59) U/L ALT 23 (21-72) U/L Alkaline Phosphatase 65 (38-126) U/L Total Protein 7.7 (6.3-8.2) g/dL Albumin 4.5 (3.5-5.0) g/dL Urine Color Urine Appearance (Clear) Urine pH (5.0-8.0) Ur Specific T[place] (1.001-1.035) Urine Protein (Negative) Urine Glucose (UA) (Negative) Urine Ketones (Negative) Urine Blood (Negative) Urine Nitrite (Negative) Urine Bilirubin (Negative) Urine Urobilinogen (<2.0) mg/dL Ur Leukocyte Esterase (Negative) Urine Opiates Screen (NotDetected) Ur Oxycodone Screen (NotDetected) Urine Methadone Screen (NotDetected) Ur Propoxyphene Screen (NotDetected) Ur Barbiturates Screen (NotDetected) U Tricyclic Antidepress (NotDetected) Ur Phencyclidine Scrn (NotDetected) Ur Amphetamines Screen (NotDetected) U Methamphetamines Scrn (NotDetected) U Benzodiazepines Scrn (NotDetected) Urine Cocaine Screen (NotDetected) U Marijuana (THC) Screen (NotDetected) Disposition Time of Disposition: 12:29 <Suresh Miller - Last Filed: 08/04/18 12:29> Is patient prescribed a controlled substance at d/c from ED?: No <Jv Varner - Last Filed: 08/05/18 13:34> Clinical Impression: Depression, Suicidal ideation Disposition: HOME SELF-CARE Condition: Stable Instructions: Depression (ED) Additional Instructions: Please follow-up with mental health services as directed. Please follow-up to primary care physician in the next day or 2 for recheck. Return for thoughts of self-harm, worsening symptoms, or other concerns. Please also follow-up with orthopedics. Referrals: Rivas Adams DO [Primary Care Provider] - 1-2 days Desean Coles MD [STAFF PHYSICIAN] - 1-2 days
[2018-08-04 11:11] LABS: Amphetamine Screen,Urine Not Detected (NotDetected); Barbiturate Screen,Urine Not Detected (NotDetected); Benzodiazepines Screen,Urine Detected (NotDetected); Cocaine Screen,Urine Not Detected (NotDetected); Methadone Screen, Urine Not Detected (NotDetected); Opiate Screen,Urine Not Detected (NotDetected); Oxycodone Screen, Urine Detected (NotDetected); Phencyclidine Screen,Urine Not Detected (NotDetected); Tricyclic Antidepressant,Urine Not Detected (NotDetected); Urn Cannabinoid Scrn Not Detected (NotDetected)
[2018-08-04 13:06] LABS: Basophils % (A) 0 %; Eosinophils # (A) 0.3 k/uL (0-0.7); Eosinophils % (A) 4 %; HCT 44.8 % (39.0-53.0); HGB 14.6 gm/dL (13.0-17.5); Lymphocytes # (A) 2.3 k/uL (1.0-4.8); Lymphocytes % (A) 30 %; MCH 31.9 pg (25.0-35.0); MCHC 32.5 g/dL (31.0-37.0); MCV 98.1 fL (80.0-100.0); Mean Platelet Volume 6.6; Monocytes # (A) 0.6 k/uL (0-1.0); Monocytes % (A) 8 %; Neutrophils # (A) 4.2 k/uL (1.3-7.7); Neutrophils % (A) 55 %; Platelet Count 381 k/uL (150-450); RBC 4.57 m/uL (4.30-5.90); RDW 13.2 % (11.5-15.5); WBC 7.6 k/uL (3.8-10.6)
[2018-08-04 13:15] LABS: ALT 23 U/L (21-72); AST 21 U/L (17-59); Albumin 4.5 g/dL (3.5-5.0); Alkaline Phosphatase 65 U/L (38-126); Anion Gap 9 mmol/L; Blood Urea Nitrogen 16 mg/dL (9-20); Carbon Dioxide 30 mmol/L (22-30); Chloride 101 mmol/L (98-107); Glucose 108 mg/dL (74-99); Potassium 4.8 mmol/L (3.5-5.1); Sodium 140 mmol/L (137-145); Total Bilirubin 0.4 mg/dL (0.2-1.3); Total Protein 7.7 g/dL (6.3-8.2)
[2018-08-04] MEDS: oxyCODONE-APAP 10-325MG 1 EACH TAB PO PRN ×2 (13:42→19:21)
[2018-08-04] MEDS ORDERED: ALPRAZolam 1 MG TAB PO STA (13:54)
[2018-08-04 15:03] VITALS: RESP 18
[2018-08-04 15:40] LABS: Appearance,Urine Clear (Clear); Bilirubin,Urine Negative (Negative); Blood,Urine Negative (Negative); Color,Urine Yellow; Glucose,Urine (UA) Negative (Negative); Ketones,Urine Negative (Negative); Leukocyte Esterase,Urine Negative (Negative); Nitrite,Urine Negative (Negative); Protein,Urine Negative (Negative); Specific Gravity,Urine 1.009 (1.001-1.035); Urobilinogen,Urine <2.0 mg/dL (<2.0)
[2018-08-05] MEDS: oxyCODONE-APAP 10-325MG 1 EACH TAB PO PRN ×3 (00:19→12:13)
--- NOTE | 2018-08-05 08:50 | XR ---
EXAMINATION TYPE: XR hand complete LT DATE OF EXAM: 08/05/2018 CLINICAL HISTORY: Pain after injury. TECHNIQUE: Frontal, lateral and oblique images of the left hand are obtained. COMPARISON: None. FINDINGS: There is an acute minimally displaced spiral type fracture through midshaft of fifth metac arpal. There is moderate narrowing at base of first metacarpal. Mild narrowing throughout the phalang es is present most prominent in the fifth finger. The overlying soft tissue appears unremarkable. IMPRESSION: There is acute minimally displaced spiral type fracture centered midshaft of fifth metac arpal. (Initial encounter closed type post traumatic fracture)
--- NOTE | 2018-08-05 10:22 | XR ---
EXAMINATION TYPE: XR humerus RT DATE OF EXAM: 08/05/2018 CLINICAL HISTORY: Pain with known fracture. TECHNIQUE: Two views of the right humerus are obtained. COMPARISON: Right humeral x-ray June 18, 2018. FINDINGS: Demineralization is redemonstrated. Acute comminuted displaced proximal humeral fracture is again seen with impaction medial displacement of distal humerus relative to humeral head and at leas t 2 large ossific fragments laterally. No new fracture is present. Visualized elbow joint is maintain ed. Moderate AC joint arthropathy with spurring and narrowing is redemonstrated. IMPRESSION: Stable comminuted displaced fracture proximal right humerus. No new fracture is evident.
--- NOTE | 2018-08-05 13:18 | P.CN ---
Psychiatric Consult - . Consult date: 08/05/18 Consult:: 08/05/18 12:50 suicidal Assessment and Plan (1) Depression Narrative/Plan: He denies any suicidal or homicidal ideation. He plans on going back to [facility] where he has a motor home. I do not see any need for him to be in a psychiatric unit since he is not suicidal homicidal. I didn't do a negative clinical certification for involuntary hospitalization. It is medically stable he was able to leave from a psychiatric standpoint. Rivas Adams D.O. PhD Current Visit: No Status: Chronic Priority: Low Code(s): F32.9 - MAJOR DEPRESSIVE DISORDER, SINGLE EPISODE, UNSPECIFIED SNOMED Code(s): 35726458 (2) Opiate addiction Current Visit: Yes Status: Acute Priority: High Code(s): F11.20 - OPIOID DEPENDENCE, UNCOMPLICATED SNOMED Code(s): 11253294 Plan: menta status is normal no suicidal nor homicidal Time with Patient: Less than 30
[2018-08-05 13:57] VITALS: BP 133/82; PULSE 77; TEMP 98.1
== END 2018-08-05 13:55 | disposition home or self-care (01) ==
LOC: EC 08:53
DX: F32.9 Major depressive disorder, single episode, unspecified (principal); R45.851 Suicidal ideations; F11.20 Opioid dependence, uncomplicated; F17.200 Nicotine dependence, unspecified, uncomplicated; Z88.5 Allergy status to narcotic agent; Z88.6 Allergy status to analgesic agent
CPT/HCPCS: 29125; 36415; 80053; 80306; 81003; 85025; 99285

== ENCOUNTER 2018-08-05 17:54 | Emergency (ER) | payer OTHER ==
--- NOTE | 2018-08-05 18:37 | ED ---
General Adult HPI - General Chief complaint: Psychiatric Symptoms Stated complaint: EPS eval Time Seen by Provider: 08/05/18 18:05 Source: patient, RN notes reviewed Mode of arrival: ambulatory Limitations: no limitations - History of Present Illness Initial comments: This is a 57-year-old male who presents to the emergency department stating he is suicidal. Patient states she's lost everything is no reason to live. Patient was here earlier in the day and negatively started by the psychiatrist and he was sent home. Patient states he has nothing any thinks he will hurt himself so he decided come back. Patient denies any homicidal ideation. Patient denies any alcohol or drug use. Patient denies any physical complaints other than his chronic arm pain from previous fractures. Patient denies any abdominal pain patient denies nausea vomiting diarrhea per patient denies chest pain difficulty breathing shortest breath. Patient denies headache patient denies numbness weakness. - Related Data Home Medications Medication Instructions Recorded Confirmed oxyCODONE-APAP 10-325MG [Percocet 1 tab PO Q8HR PRN 08/04/18 08/06/18 10-325 mg] Previous Rx's Medication Instructions Recorded Meclizine [Antivert] 25 mg PO DAILY 30 Days #30 tab 08/03/18 levETIRAcetam [Keppra] 750 mg PO BID 30 Days #60 tab 08/03/18 Allergies Allergy/AdvReac Type Severity Reaction Status Date / Time codeine AdvReac Itching Verified 08/06/18 18:14 ibuprofen [From Motrin] AdvReac Unknown Verified 08/06/18 18:14 Review of Systems ROS Statement: Those systems with pertinent positive or pertinent negative responses have been documented in the HPI. ROS Other: All systems not noted in ROS Statement are negative. Past Medical History Past Medical History: Liver Disease, Seizure Disorder Additional Past Medical History / Comment(s): patient not sure if he has liver disease History of Any Multi-Drug Resistant Organisms: None Reported Past Surgical History: No Surgical Hx Reported Additional Past Surgical History / Comment(s): Tooth extraction with anesthesia Past Anesthesia/Blood Transfusion Reactions: Unable to Obtain Additional Past Anesthesia/Blood Transfusion Reaction / Comment(s): Pt has never had surgery. Past Psychological History: Anxiety, Depression, Schizophrenia Smoking Status: Current every day smoker Past Alcohol Use History: None Reported Past Drug Use History: None Reported - Past Family History Mother Family Medical History: Cancer Additional Family Medical History / Comment(s): Mother is . She had lung cancer. General Exam - General Exam Comments Initial Comments: GENERAL: Patient is well-developed and well-nourished. Patient is nontoxic and well- hydrated and is in no acute distress. ENT: Neck is soft and supple. No significant lymphadenopathy is noted. Oropharynx is clear. Moist mucous membranes. Neck has full range of motion without eliciting any pain. EYES: The sclera were anicteric and conjunctiva were pink and moist. Extraocular movements were intact and pupils were equal round and reactive to light. Eyelids were unremarkable. PULMONARY: Unlabored respirations. Good breath sounds bilaterally. No audible rales rhonchi or wheezing was noted. CARDIOVASCULAR: There is a regular rate and rhythm without any murmurs gallops or rubs. ABDOMEN: Soft and nontender with normal bowel sounds. No palpable organomegaly was noted. There is no palpable pulsatile mass. SKIN: Skin is clear with no lesions or rashes and otherwise unremarkable. NEUROLOGIC: Patient is alert and oriented x3. Cranial nerves II through XII are grossly intact. Motor and sensory are also intact. Normal speech, volume and content. Symmetrical smile. MUSCULOSKELETAL: Normal extremities with adequate strength and full range of motion. LYMPHATICS: No significant lymphadenopathy is noted PSYCHIATRIC: Patient states he suicidal. Limitations: no limitations Course Vital Signs 08/05/18 08/06/18 08/06/18 18:06 04:24 09:00 Temperature 98.1 F 97.0 F L Pulse Rate 110 H 70 Respiratory 16 20 18 Rate Blood Pressure 149/96 103/77 O2 Sat by Pulse 95 96 Oximetry 08/06/18 08/06/18 10:00 13:00 Temperature 97.3 F L 98.2 F Pulse Rate 95 66 Respiratory 18 18 Rate Blood Pressure 115/80 116/80 O2 Sat by Pulse 97 Oximetry Medical Decision Making - Medical Decision Making The psychiatrist came down to see this patient and negative the started the patient and determined she could go home and would be safe. - Lab Data Lab Results 08/05/18 Range/Units 18:56 Urine Opiates Screen Not Detected (NotDetected) Ur Oxycodone Screen Detected H (NotDetected) Urine Methadone Screen Not Detected (NotDetected) Ur Propoxyphene Screen Not Detected (NotDetected) Ur Barbiturates Screen Not Detected (NotDetected) U Tricyclic Antidepress Not Detected (NotDetected) Ur Phencyclidine Scrn Not Detected (NotDetected) Ur Amphetamines Screen Not Detected (NotDetected) U Methamphetamines Scrn Not Detected (NotDetected) U Benzodiazepines Scrn Detected H (NotDetected) Urine Cocaine Screen Not Detected (NotDetected) U Marijuana (THC) Screen Not Detected (NotDetected) Disposition Clinical Impression: Suicidal ideations, Depression Disposition: HOME SELF-CARE Condition: Good Instructions: Depression (ED), Suicide Prevention (ED) Is patient prescribed a controlled substance at d/c from ED?: No Referrals: Rivas Adams DO [Primary Care Provider] - 1-2 days Time of Disposition: 13:09
[2018-08-05 19:20] LABS: Amphetamine Screen,Urine Not Detected (NotDetected); Barbiturate Screen,Urine Not Detected (NotDetected); Benzodiazepines Screen,Urine Detected (NotDetected); Cocaine Screen,Urine Not Detected (NotDetected); Methadone Screen, Urine Not Detected (NotDetected); Opiate Screen,Urine Not Detected (NotDetected); Oxycodone Screen, Urine Detected (NotDetected); Phencyclidine Screen,Urine Not Detected (NotDetected); Tricyclic Antidepressant,Urine Not Detected (NotDetected); Urn Cannabinoid Scrn Not Detected (NotDetected)
[2018-08-06] MEDS ORDERED: oxyCODONE-APAP 5-325MG 1 EACH TAB PO STA (03:51)
[2018-08-06 10:23] VITALS: RESP 18
[2018-08-06] MEDS ORDERED: oxyCODONE-APAP 10-325MG 1 EACH TAB PO PRN (10:33)
--- NOTE | 2018-08-06 13:11 | P.CN ---
Psychiatric Consult - . Consult date: 08/06/18 Consult:: 08/06/18 13:07 Suicidal ideation Assessment and Plan Assessment: IDENTIFYING DATA: 57-year-old male patient HPI: Patient admitted to the inpatient psychiatric unit on a voluntary basis with concerns regarding thoughts of suicide. The patient presents alert, pleasant, and cooperative. There calmly seated without any agitated behavior. [He] reports that [his] mood is good. Affect is congruent and euthymic. [He] deny having any suicidal or homicidal ideation intent or plan. [He] denies any auditory or visual hallucinations. There is no evidence of any delusional thought content. [His] thought process is linear and goal-directed. [His] speech is fluent and nonpressured. [His] memory and concentration is grossly intact for the purposes of this session. (1) Suicidal ideation Current Visit: Yes Status: Acute Code(s): R45.851 - SUICIDAL IDEATIONS SNOMED Code(s): 8897498 Plan: As identified on 08/05/2018 as well as today 08/06/2018 at 12 noon this man is not suicidal but manipulative opiate seeking 57-year-old man with no place to live and was directed to go to jail and follow up with community mental health. He needs to follow-up in outpatient basis for his left hand at orthopedic clinic and at community mental health where he can walk in at any time in get assistance on mental health and jail resources. As stated yesterday I feel no need for him to be in the psychiatric unit for his not have any criteria for inpatient admission.
[2018-08-06 13:33] VITALS: BP 116/80; PULSE 66; TEMP 98.2
== END 2018-08-06 13:33 | disposition home or self-care (01) ==
LOC: EC 17:54
DX: F32.9 Major depressive disorder, single episode, unspecified (principal); R45.851 Suicidal ideations; G89.29 Other chronic pain; M79.603 Pain in arm, unspecified; F17.200 Nicotine dependence, unspecified, uncomplicated; Z88.5 Allergy status to narcotic agent; Z88.6 Allergy status to analgesic agent
CPT/HCPCS: 80306; 82075; 99285

== ENCOUNTER 2018-08-06 17:35 | Emergency (ER) | payer OTHER ==
[2018-08-06 18:39] LABS: Amphetamine Screen,Urine Not Detected (NotDetected); Barbiturate Screen,Urine Not Detected (NotDetected); Benzodiazepines Screen,Urine Detected (NotDetected); Cocaine Screen,Urine Not Detected (NotDetected); Methadone Screen, Urine Not Detected (NotDetected); Opiate Screen,Urine Not Detected (NotDetected); Oxycodone Screen, Urine Detected (NotDetected); Phencyclidine Screen,Urine Not Detected (NotDetected); Tricyclic Antidepressant,Urine Not Detected (NotDetected); Urn Cannabinoid Scrn Not Detected (NotDetected)
--- NOTE | 2018-08-06 18:41 | ED ---
Psych HPI - General Chief Complaint: Psychiatric Symptoms Stated Complaint: EPS eval Time Seen by Provider: 08/06/18 17:54 Source: EMS Mode of arrival: EMS - History of Present Illness Initial Comments: 57-year-old male patient presents to the emergency department today for psychiatric evaluation. Patient is reporting that he is suicidal, does not want to live anymore, and wants to "rip my body apart and bleed out". Patient states he is tired of living and being in pain and wants to . He states he was at his doctor's office today and broke down. States they called the police and an ambulance and brought him here. Patient is requesting percocet for pain. He denies any new physical symptoms. Patient denies any recent rash, fever, chills, shortness breath, chest pain, abdominal pain, nausea, vomiting, diarrhea , constipation, back pain, numbness, tingling, dizziness, weakness, hematuria, dysuria, urinary urgency, urinary frequency, headache, visual changes, or any other complaints. - Related Data Home Medications Medication Instructions Recorded Confirmed oxyCODONE-APAP 10-325MG [Percocet 1 tab PO Q8HR PRN 08/04/18 08/06/18 10-325 mg] Previous Rx's Medication Instructions Recorded Meclizine [Antivert] 25 mg PO DAILY 30 Days #30 tab 08/03/18 levETIRAcetam [Keppra] 750 mg PO BID 30 Days #60 tab 08/03/18 Allergies Allergy/AdvReac Type Severity Reaction Status Date / Time codeine AdvReac Itching Verified 08/06/18 18:14 ibuprofen [From Motrin] AdvReac Unknown Verified 08/06/18 18:14 Review of Systems ROS Statement: Those systems with pertinent positive or pertinent negative responses have been documented in the HPI. ROS Other: All systems not noted in ROS Statement are negative. Past Medical History Past Medical History: Liver Disease, Seizure Disorder Additional Past Medical History / Comment(s): patient not sure if he has liver disease History of Any Multi-Drug Resistant Organisms: None Reported Past Surgical History: No Surgical Hx Reported Additional Past Surgical History / Comment(s): Tooth extraction with anesthesia Past Anesthesia/Blood Transfusion Reactions: Unable to Obtain Additional Past Anesthesia/Blood Transfusion Reaction / Comment(s): Pt has never had surgery. Past Psychological History: Anxiety, Depression, Schizophrenia Smoking Status: Current every day smoker Past Alcohol Use History: None Reported Past Drug Use History: None Reported - Past Family History Mother Family Medical History: Cancer Additional Family Medical History / Comment(s): Mother is . She had lung cancer. General Exam Limitations: no limitations General appearance: alert, in no apparent distress, other (This is a well- developed, well-nourished adult male patient in no acute distress. Vital signs upon presentation are temperature 97.2F, pulse 88, respirations 18, blood pressure 124/89, pulse ox 97% on room air.) Eye exam: Present: normal appearance, PERRL, EOMI. Absent: scleral icterus, conjunctival injection, periorbital swelling ENT exam: Present: normal exam, normal oropharynx, mucous membranes moist Respiratory exam: Present: normal lung sounds bilaterally. Absent: respiratory distress, wheezes, rales, rhonchi, stridor Cardiovascular Exam: Present: regular rate, normal rhythm, normal heart sounds. Absent: systolic murmur, diastolic murmur, rubs, gallop, clicks GI/Abdominal exam: Present: soft, normal bowel sounds. Absent: distended, tenderness, guarding, rebound, rigid Neurological exam: Present: alert, oriented X3, CN II-XII intact Psychiatric exam: Present: normal affect, normal mood Skin exam: Present: warm, dry, intact, normal color. Absent: rash Course Vital Signs 08/06/18 08/06/18 17:55 20:14 Temperature 97.2 F L 98.3 F Pulse Rate 88 100 Respiratory 18 17 Rate Blood Pressure 124/89 138/100 O2 Sat by Pulse 97 95 Oximetry Medical Decision Making - Medical Decision Making 57-year-old male patient presented to the emergency department today with complaints of suicidal ideation and chronic pain. This is the patient's fourth visit for similar complaints in the last week. Patient was admitted to the mental health unit evaluated and started on psychiatric medications as well as given a prescription for his chronic pain medication. It is reported by mental health unit staff that the patient threw away the prescriptions for psychiatric medication and kept the Percocet prescription. Patient did repeatedly ask for pain medication while in the department today. He became upset and belligerent when we would not provide him with Percocet. He was seen and evaluated by emergency psychiatric services. This does not meet inpatient criteria at this time. He will be discharged home with instructions to follow-up outpatient for mental health services and to follow-up with his primary care physician for any further prescriptions of pain medication. - Lab Data Lab Results 08/06/18 Range/Units 18:19 Urine Opiates Screen Not Detected (NotDetected) Ur Oxycodone Screen Detected H (NotDetected) Urine Methadone Screen Not Detected (NotDetected) Ur Propoxyphene Screen Not Detected (NotDetected) Ur Barbiturates Screen Not Detected (NotDetected) U Tricyclic Antidepress Not Detected (NotDetected) Ur Phencyclidine Scrn Not Detected (NotDetected) Ur Amphetamines Screen Not Detected (NotDetected) U Methamphetamines Scrn Not Detected (NotDetected) U Benzodiazepines Scrn Detected H (NotDetected) Urine Cocaine Screen Not Detected (NotDetected) U Marijuana (THC) Screen Not Detected (NotDetected) Disposition Clinical Impression: Drug-seeking behavior, Depression Disposition: HOME SELF-CARE Condition: Good Instructions: Depression (ED), Opioid Use Disorder (ED) Additional Instructions: Follow-up with your primary care physician for further evaluation. Follow-up outpatient with mental health services. Return immediately for any new, worsening, or concerning symptoms. Is patient prescribed a controlled substance at d/c from ED?: No Referrals: Rivas Adams DO [Primary Care Provider] - 1-2 days Time of Disposition: 20:18
[2018-08-06 20:17] VITALS: BP 138/100; PULSE 100; RESP 17; TEMP 98.3
== END 2018-08-06 20:41 | disposition home or self-care (01) ==
LOC: EC 17:35
DX: F32.9 Major depressive disorder, single episode, unspecified (principal); R45.851 Suicidal ideations; F17.200 Nicotine dependence, unspecified, uncomplicated; Z76.5 Malingerer [conscious simulation]; Z88.5 Allergy status to narcotic agent; Z88.6 Allergy status to analgesic agent
CPT/HCPCS: 80306; 82075; 99285